=== PATIENT | male | born 1950 | race Caucasian/White ===

== ENCOUNTER 2020-01-15 16:50 | Emergency (ER) | payer MEDICARE, SELFPAY ==
[2020-01-15] VITALS (10 sets, daily range): BP systolic 126–165; BP diastolic 75–86; PULSE 55–69; RESP 14; O2SAT 95–97; BMI 38.7
[2020-01-15 18:47] LABS: Add Manual Diff / Slide Review NO; Basophils Absolute Auto 100 /uL (0-100); Basophils Percent Auto 1.1 % (0-2); Eosinophils Absolute Auto 400 /uL (0-450); Eosinophils Percent Auto 4.2 % (2-4); Hematocrit 50.2 % (41-53); Lymphocytes Absolute Auto 2600 /uL (1100-4500); Lymphocytes Percent Auto 26.9 % (25-40); Mean Corpuscular HGB Conc 33.8 % (30-36); Mean Corpuscular Hemoglobin 31.3 PG (26-34); Mean Corpuscular Volume 92.7 fL (80-100); Monocytes Absolute Auto 900 /uL (0-900); Monocytes Percent Auto 9.1 % (3-14); Neutrophils Absolute Auto 5700 /uL (1500-7000); Neutrophils Percent Auto 58.7 % (50-75); Platelet Count 204 X10^3/uL (150-400); Red Blood Cell Count 5.42 X10^6/uL (4.5-5.9); Red Cell Distribution Width 12.9 % (11.6-14.8); White Blood Cell Count 9.8 X10^3/uL (4.5-11.0)
[2020-01-15] MEDS: MORPHINE 2 MG/ML INJ IV (18:53)
[2020-01-15] MEDS: LIDOCAINE 2% (UROJET) 5 ML GEL TOP (18:54)
[2020-01-15] MEDS: SODIUM CHLORIDE 0.9% 1,000 ML 1000 ML IV (18:54)
[2020-01-15 19:03] LABS: Alanine Aminotransferase 36 IU/L (<50); Albumin 4.6 g/dL (3.5-5.0); Albumin Globulin Ratio 1.4 (1.0-2.8); Alkaline Phosphatase 84 U/L (38-126); Aspartate Aminotransferase 37 IU/L (17-59); BUN Creatinine Ratio 11.7 (6-22); Bilirubin Total 0.7 mg/dL (0.2-1.3); Blood Urea Nitrogen 14 mg/dL (9-20); Calcium 9.3 mg/dL (8.4-10.2); Carbon Dioxide 25 mmol/L (22-32); Chloride 108 mmol/L (98-107); Estimated Glomerular Filt Rate > 60.0 mL/min (>60); Globulin 3.2 g/dL (1.7-4.1); Glucose 110 mg/dL (80-110); HEMOLYSIS < 15 (0-50); Potassium 4.4 mmol/L (3.4-5.1); Sodium 139 mmol/L (137-145); Total Protein 7.8 g/dL (6.3-8.2)
--- NOTE | 2020-01-15 19:22 | DI.CT.S_ITS ---
PROCEDURE: CT ABDOMEN PELVIS W CON INDICATIONS: flank pain, hematuria, hx bladder mass TECHNIQUE: After the administration of intravenous contrast, 5 mm thick sections acquired from the diaphragm to the symphysis. 5 mm coronal and sagittal reformats were acquired. For radiation dose reduction, the following was used: automated exposure control, adjustment of mA and/or kV according to patient size. COMPARISON: None. FINDINGS: Image quality: Excellent. ABDOMEN: Lung bases: Lung bases are clear. Heart size is normal. Coronary artery calcifications are present. Hepatic steatosis. Gallbladder contains a 5 mm gallstone however otherwise unremarkable . Biliary system is non dilated. Pancreas enhances normally. Spleen is normal in size and enhancement. No adrenal nodules. Nonobstructive multiple 1 mm left renal calculi image 41/2. No hydronephrosis. Peritoneum and bowel: Bowel loops demonstrate normal wall thickness and caliber. No free fluid or air. Normal appendix. Nodes and vessels: No retroperitoneal or mesenteric adenopathy by size criteria. Aorta and inferior vena cava are normal in size. Miscellaneous: No ventral hernias. PELVIS: Bladder is decompressed and a Karimi catheter is present. Miscellaneous: No inguinal hernias or adenopathy. Bones: No vertebral body compression fracture. Spondylytic changes and facet arthropathy. IMPRESSION: Nonobstructive sub 5 mm left nephrolithiasis Incidental cholelithiasis Decompressed bladder (therefore unable to evaluate) due to a Karimi catheter. Dictated by: Charly Carmona M.D. on 01/15/2020 at 20:29 Approved by: Charly Carmona M.D. on 01/15/2020 at 20:34
[2020-01-15 19:30] LABS: Appearance Urine UA TURBID; Bilirubin Urine UA NEGATIVE (NEGATIVE); Color Urine UA RED; Glucose Urine UA TRACE g/dL (Negative); Ketones Urine UA TRACE (NEGATIVE); Leukocyte Esterase Urine UA NEGATIVE (NEGATIVE); Nitrite Urine UA POSITIVE (Negative); Occult Blood Urine UA 3+ (Negative); Protein Urine UA 3+ (Negative); Specific Gravity Urine UA 1.025 (1.000-1.035)
[2020-01-15 19:34] LABS: Bacteria Urine Many (>30); Culture Indicated Urine Specimen Cultured; RBC Urine >100/HPF (0-5/HPF); WBC Urine 0-1/HPF (0-5/HPF)
--- NOTE | 2020-01-15 19:37 | PC.NURSE ---
Patient was apprehensive about receiving a large fr. cath. He was pre medicated for pain and discomfort and then a 24 fr 3-way bansal cath was placed and bladder irrigation was started. The patient tolerated the procedure well and stated that he did not feel much discomfort.
--- NOTE | 2020-01-15 21:39 | ED_ITS ---
HPI - Male Genitourinary <JOYCELYN Almanza-BC - Last Filed: 01/15/20 22:09> General Chief complaint: Urogenital-Male Stated complaint: blood in urine x24 hours Time Seen by Provider: 01/15/20 17:54 Source: patient and family Mode of arrival: Ambulatory Limitations: no limitations History of Present Illness HPI Narrative: The patient is a 69-year-old male who presents with a chief complaint of hematuria that started yesterday. He is a nonsmoker presenting with his with history of prostate cancer. He states that he was straining to have a bowel movement and noticed blood clots coming from his penis and subsequent bloody urine. He states it stings a little bit to urinate, but nothing severe. He denies any fevers nausea vomiting or diarrhea. Denies any back or flank pain. He states that he persisted in urinating blood clots this morning so he went to an urgent care who checked his urine for infection. They stated he had no infection encouraged him to come to the emergency department. He does not have a primary care provider in the area as he recently moved from [place] with his . The patient states that he notes blood clots coming from his penis while straining to have a bowel movement. Related Data Previous Rx's Medication Instructions Recorded sulfamethoxazole-trimethoprim 1 tab PO BID #14 tab 01/15/20 [Bactrim DS] Allergies Allergy/AdvReac Type Severity Reaction Status Date / Time No Known Drug Allergies Allergy Verified 01/15/20 17:00 Review of Systems <ANGELICA AlmanzaBC - Last Filed: 01/15/20 22:09> Review of Systems Narrative: GENERAL: Denies chills, fatigue, malaise, fever, sweats. HEENT: Denies sinus pain, ear pain, sore throat, difficulty swallowing, dizziness. RESPIRATORY: Denies dyspnea, cough, wheezing, hemoptysis, sputum. CARDIOVASCULAR: Denies chest pain, palpitations, orthopnea, edema, GASTROINTESTINAL: Denies nausea, vomiting, abdominal pain, diarrhea, constipation, melena. : See HPI MUSCULOSKELETAL: denies weakness, joint pain, or bony pain SKIN: Denies rash, skin lesions, or other NEUROLOGIC: Denies weakness, headache, numbness, change in speech, confusion, seizures, incoordination. PSYCHIATRIC: No concerning psychosocial issues. 12 point review of systems is negative except for those stated above Patient History <GUERO Almanza - Last Filed: 01/15/20 22:09> Medical History (Updated 01/15/20 @ 21:52 by GUERO Almanza) Constipation (Acute) Prostate cancer (Acute) Social History Smoking Status: Never smoker Smoking Status: Never smoker alcohol intake frequency: 0-2 drinks per day Substance Use Type: does not use Exam <GUERO Almanza - Last Filed: 01/15/20 22:09> Narrative Exam Narrative: GENERAL: This is a well-nourished, well-developed patient, nervous itch. HEAD: Atraumatic. Normocephalic. No temporal or scalp tenderness. EYES: Pupils equal round and reactive. Extraocular motions intact. No scleral icterus. No injection or drainage. ENT: Nose without bleeding, purulent drainage or septal hematoma. Wearing mask Airway patent. NECK: Trachea midline. No JVD or lymphadenopathy. Supple, nontender, no meningeal signs. CARDIOVASCULAR: Regular rate and rhythm use. RESPIRATORY: Clear to auscultation. Breath sounds equal bilaterally. No wheezes, rales, or rhonchi. No cough. No increased respiratory effort. No accessory muscle GASTROINTESTINAL: Abdomen soft, non-tender, nondistended. No hepato- splenomegaly, or palpable masses. No guarding. Karimi catheter in place draining bloody urine. EXTREMITIES: No clubbing, cyanosis, or edema. No joint tenderness, effusion, or edema noted. BACK: Nontender without deformity or crepitance. No flank tenderness. NEURO: AOx3. SKIN: No rash or erythema. Initial Vital Signs Initial Vital Signs: Vital Signs Pulse Rate 69 01/15/20 17:02 Respiratory Rate 14 01/15/20 17:02 Blood Pressure 165/77 H 01/15/20 17:02 Pulse Oximetry 95 01/15/20 17:02 <Adria Oviedo DO - Last Filed: 01/16/20 03:39> Initial Vital Signs Initial Vital Signs: Vital Signs Pulse Rate 69 01/15/20 17:02 Respiratory Rate 14 01/15/20 17:02 Blood Pressure 165/77 H 01/15/20 17:02 Pulse Oximetry 95 01/15/20 17:02 Scores <ANGELICA AlmanzaBC - Last Filed: 01/15/20 22:09> GCS Servando coma scale eye opening: Spontaneous [place] coma scale verbal response: Orientated Servando coma scale motor response: Obey commands Servando coma scale total score: 15 Course <GUERO Almanza - Last Filed: 01/15/20 22:09> Orders Ordered: ED Orders 01/15/20 18:40 Complete Blood Count AUTO DIFF Stat Comprehensive Metabolic Panel Stat Urinalysis and Microscopic Stat Urine Culture Stat 01/15/20 19:22 CT abdomen pelvis w con Stat Discontinued Medications Sodium Chloride (Normal Saline 0.9%) 1,000 mls @ 1,000 mls/hr IV BOLUS ONE Stop: 01/15/20 19:37 Last Infusion: 01/15/20 20:43 Dose: 0 mls/hr Documented by: Admin: 01/15/20 18:54 Dose: 1,000 mls/hr Documented by: RIRI Lidocaine HCl (Urojet) 5 ml TOP NOW ONE Stop: 01/15/20 18:39 Last Admin: 01/15/20 18:54 Dose: 5 ml Documented by: RIRI Morphine Sulfate (Morphine) 2 mg IV NOW ONE Stop: 01/15/20 18:39 Last Admin: 01/15/20 18:53 Dose: 2 mg Documented by: RIRI Trimethoprim/Sulfamethoxazole (Bactrim Ds) 1 tab PO NOW ONE Stop: 01/15/20 21:23 Last Admin: 01/15/20 22:14 Dose: 1 tab Documented by: EDA Vital Signs Vital signs: Vital Signs - 8 hr 01/15/20 20:00 01/15/20 20:05 01/15/20 20:30 Pulse Rate 64 65 59 L Blood Pressure 135/86 126/76 Pulse Oximetry 97 96 95 01/15/20 21:00 01/15/20 21:30 01/15/20 22:00 Pulse Rate 60 56 L 59 L Blood Pressure 132/75 140/78 135/84 Pulse Oximetry 95 95 96 01/15/20 22:30 Pulse Rate 55 L Blood Pressure 142/78 H Pulse Oximetry 95 <Adria Oviedo DO - Last Filed: 01/16/20 03:39> Orders Ordered: ED Orders 01/15/20 18:40 Complete Blood Count AUTO DIFF Stat Comprehensive Metabolic Panel Stat Urinalysis and Microscopic Stat Urine Culture Stat 01/15/20 19:22 CT abdomen pelvis w con Stat Discontinued Medications Sodium Chloride (Normal Saline 0.9%) 1,000 mls @ 1,000 mls/hr IV BOLUS ONE Stop: 01/15/20 19:37 Last Infusion: 01/15/20 20:43 Dose: 0 mls/hr Documented by: Admin: 01/15/20 18:54 Dose: 1,000 mls/hr Documented by: RIRI Lidocaine HCl (Urojet) 5 ml TOP NOW ONE Stop: 01/15/20 18:39 Last Admin: 01/15/20 18:54 Dose: 5 ml Documented by: RIRI Morphine Sulfate (Morphine) 2 mg IV NOW ONE Stop: 01/15/20 18:39 Last Admin: 01/15/20 18:53 Dose: 2 mg Documented by: RIRI Trimethoprim/Sulfamethoxazole (Bactrim Ds) 1 tab PO NOW ONE Stop: 01/15/20 21:23 Last Admin: 01/15/20 22:14 Dose: 1 tab Documented by: EDA Vital Signs Vital signs: Vital Signs - 8 hr 01/15/20 20:00 01/15/20 20:05 01/15/20 20:30 Pulse Rate 64 65 59 L Blood Pressure 135/86 126/76 Pulse Oximetry 97 96 95 01/15/20 21:00 01/15/20 21:30 01/15/20 22:00 Pulse Rate 60 56 L 59 L Blood Pressure 132/75 140/78 135/84 Pulse Oximetry 95 95 96 01/15/20 22:30 Pulse Rate 55 L Blood Pressure 142/78 H Pulse Oximetry 95 MDM - Male Genitourinary <JOYCELYN Almanza- - Last Filed: 01/15/20 22:09> Lab Data Attestation: I reviewed the patient's lab results. Result diagrams: 01/15/20 18:40 01/15/20 18:40 Labs: Lab Results 01/15/20 01/15/20 01/15/20 Range/Units 18:40 18:40 18:40 WBC 9.8 (4.5-11.0) X10^3/uL RBC 5.42 (4.5-5.9) X10^6/uL Hgb 17.0 (13.5-17.5) g/dL Hct 50.2 (41-53) % MCV 92.7 (80-100) fL MCH 31.3 (26-34) PG MCHC 33.8 (30-36) % RDW 12.9 (11.6-14.8) % Plt Count 204 (150-400) X10^3/uL Neut % (Auto) 58.7 (50-75) % Lymph % (Auto) 26.9 (25-40) % [place] % (Auto) 9.1 (3-14) % Eos % (Auto) 4.2 H (2-4) % Baso % (Auto) 1.1 (0-2) % Neut # (Auto) 5700 (3508-2815) /uL Lymph # (Auto) 2600 (5719-8482) /uL [place] # (Auto) 900 (0-900) /uL Eos # (Auto) 400 (0-450) /uL Baso # (Auto) 100 (0-100) /uL Sodium 139 (137-145) mmol/L Potassium 4.4 (3.4-5.1) mmol/L Chloride 108 H (98-107) mmol/L Carbon Dioxide 25 (22-32) mmol/L BUN 14 (9-20) mg/dL Creatinine 1.20 (0.66-1.25) mg/dL Estimated GFR > 60.0 (>60) mL/min BUN/Creatinine Ratio 11.7 (6-22) Glucose 110 (80-110) mg/dL Calcium 9.3 (8.4-10.2) mg/dL Total Bilirubin 0.7 (0.2-1.3) mg/dL AST 37 (17-59) IU/L ALT 36 (<50) IU/L Alkaline Phosphatase 84 (38-126) U/L Total Protein 7.8 (6.3-8.2) g/dL Albumin 4.6 (3.5-5.0) g/dL Globulin 3.2 (1.7-4.1) g/dL Albumin/Globulin Ratio 1.4 (1.0-2.8) Urine Color Red Urine Appearance Turbid Urine pH 5.0 (4.5-8.0) Ur Specific [place] 1.025 (1.000-1.035) Urine Protein 3+ H (Negative) Urine Glucose (UA) Trace H (Negative) g/dL Urine Ketones Trace H (NEGATIVE) Urine Occult Blood 3+ H (Negative) Urine Nitrate Positive (Negative) Urine Bilirubin Negative (NEGATIVE) Urine Urobilinogen 1.0 (0.2) E.U./dL Ur Leukocyte Esterase Negative (NEGATIVE) Urine RBC >100/hpf H (0-5/HPF) Urine WBC 0-1/hpf (0-5/HPF) Urine Bacteria Many (>30) H (None) Ur Culture Indicated? Specimen cultured Imaging Data CT scan - abdomen/pelvis: Radiologist's Impression: [address] [place] [id number] Scan Report Signed Patient: Davey Mast VMR#: [id number] : 3Acct:[id number] Age/Sex: 69 / MDate of Service: 01/15/20 Loc: ED Accession Number: [id number] Procedure: CT abdomen pelvis w con Ordering Provider: Shelley Manrique [facility]- PROCEDURE: CT ABDOMEN PELVIS W CON INDICATIONS: flank pain, hematuria, hx bladder mass TECHNIQUE: After the administration of intravenous contrast, 5 mm thick sections acquired from the diaphragm to the symphysis. 5 mm coronal and sagittal reformats were acquired. For radiation dose reduction, the following was used: automated exposure control, adjustment of mA and/or kV according to patient size. COMPARISON: None. FINDINGS: Image quality: Excellent. ABDOMEN: Lung bases: Lung bases are clear. Heart size is normal. Coronary artery calcifications are present. Hepatic steatosis. Gallbladder contains a 5 mm gallstone however otherwise unremarkable . Biliary system is non dilated. Pancreas enhances normally. Spleen is normal in size and enhancement. No adrenal nodules. Nonobstructive multiple 1 mm left renal calculi image 41/2. No hydronephrosis. Peritoneum and bowel: Bowel loops demonstrate normal wall thickness and ca liber. No free fluid or air. Normal appendix. Nodes and vessels: No retroperitoneal or mesenteric adenopathy by size criteria. Aorta and inferior vena cava are normal in size. Miscellaneous: No ventral hernias. PELVIS: Bladder is decompressed and a Karimi catheter is present. Miscellaneous: No inguinal hernias or adenopathy. Bones: No vertebral body compression fracture. Spondylytic changes and facet arthropathy. IMPRESSION: Nonobstructive sub 5 mm left nephrolithiasis Incidental cholelithiasis Decompressed bladder (therefore unable to evaluate) due to a Karimi catheter. Dictated by: Charly Carmona M.D. on 01/15/2020 at 20:29 Approved by: Charly Carmona M.D. on 01/15/2020 at 20:34 [facility] Narrative Medical decision making narrative: The patient is a 69-year-old male presents with a chief complaint of gross hematuria for the past 2 days. His lab work is grossly within normal limits, is not anemic, has normal renal function. He does have history of kidney stones,, but CT abdomen pelvis does not show any ureteral stones at this point. He does have a nonobstructive 1 mm renal calculi. However his urine is concerning for infection with bacteria, blood, and nitr ites. Patient placed on Bactrim. He has no signs of systemic infection, no leukocytosis, no fever. I did discuss at length the importance of follow-up with primary care provider and gave him contact information [facility] health human resources safety manager. Also given contact information for urology as I believe he would benefit from a cystoscopy pending antibiotic treatment and further evaluation. The patient is comfortable using a Karimi catheter home as he is use from before. Received teaching and leg bag again by nursing. Urine culture is pending. Discussed at length coming back to ER for acute concerns such as Karimi catheter not working, inability keep down fluids, severe flank dano n etcetera. Patient have no questions or concerns upon discharge and state understanding of return precautions as well as follow-up care. <Adria Oviedo, DO - Last Filed: 01/16/20 03:39> Lab Data Labs: Lab Results 01/15/20 01/15/20 01/15/20 Range/Units 18:40 18:40 18:40 WBC 9.8 (4.5-11.0) X10^3/uL RBC 5.42 (4.5-5.9) X10^6/uL Hgb 17.0 (13.5-17.5) g/dL Hct 50.2 (41-53) % MCV 92.7 (80-100) fL MCH 31.3 (26-34) PG MCHC 33.8 (30-36) % RDW 12.9 (11.6-14.8) % Plt Count 204 (150-400) X10^3/uL Neut % (Auto) 58.7 (50-75) % Lymph % (Auto) 26.9 (25-40) % [place] % (Auto) 9.1 (3-14) % Eos % (Auto) 4.2 H (2-4) % Baso % (Auto) 1.1 (0-2) % Neut # (Auto) 5700 (4849-2759) /uL Lymph # (Auto) 2600 (0102-2878) /uL [place] # (Auto) 900 (0-900) /uL Eos # (Auto) 400 (0-450) /uL Baso # (Auto) 100 (0-100) /uL Sodium 139 (137-145) mmol/L Potassium 4.4 (3.4-5.1) mmol/L Chloride 108 H (98-107) mmol/L Carbon Dioxide 25 (22-32) mmol/L BUN 14 (9-20) mg/dL Creatinine 1.20 (0.66-1.25) mg/dL Estimated GFR > 60.0 (>60) mL/min BUN/Creatinine Ratio 11.7 (6-22) Glucose 110 (80-110) mg/dL Calcium 9.3 (8.4-10.2) mg/dL Total Bilirubin 0.7 (0.2-1.3) mg/dL AST 37 (17-59) IU/L ALT 36 (<50) IU/L Alkaline Phosphatase 84 (38-126) U/L Total Protein 7.8 (6.3-8.2) g/dL Albumin 4.6 (3.5-5.0) g/dL Globulin 3.2 (1.7-4.1) g/dL Albumin/Globulin Ratio 1.4 (1.0-2.8) Urine Color Red Urine Appearance Turbid Urine pH 5.0 (4.5-8.0) Ur Specific [place] 1.025 (1.000-1.035) Urine Protein 3+ H (Negative) Urine Glucose (UA) Trace H (Negative) g/dL Urine Ketones Trace H (NEGATIVE) Urine Occult Blood 3+ H (Negative) Urine Nitrate Positive (Negative) Urine Bilirubin Negative (NEGATIVE) Urine Urobilinogen 1.0 (0.2) E.U./dL Ur Leukocyte Esterase Negative (NEGATIVE) Urine RBC >100/hpf H (0-5/HPF) Urine WBC 0-1/hpf (0-5/HPF) Urine Bacteria Many (>30) H (None) Ur Culture Indicated? Specimen cultured Discharge Plan Departure Patient Disposition: Home Clinical Impression: Calculus, renal Urinary tract infection Qualifiers: Urinary tract infection type: site unspecified Hematuria presence: with hematuria Qualified Code(s): N39.0 - Urinary tract infection, site not specified Hematuria Qualifiers: Hematuria type: gross Qualified Code(s): R31.0 - Gross hematuria Discharge Date/Time: 01/15/20 23:09 Instructions: How to Care for Your Karimi Catheter -- Male, DI for Urinary Tract Infection (UTI), DI for Hematuria Activity Restrictions/Additional Instructions: Thank you for trusting us with your care today As discussed, you have signs of infection in your urine. I have placed you on an antibiotic. Please take this with probiotic or yogurt. I sent this prescription to [facility]. We have placed a Karimi catheter to help urine drain as well as flushed your bladder. As discussed, please follow-up with urology. I have given you contact [facility] Please give his office a call to get in for follow-up. In the meantime I have given you could instructions regarding taking care of a Karimi catheter. Please be sure to keep it clean. Please come back to the emergency department for any acute concerns such as high fevers, severe flank pain that could indicate a kidney infection. I have also given you contact information to the [facility] human resources safety manager, who can help you identify new primary care provider in the area. Prescriptions: New sulfamethoxazole-trimethoprim [Bactrim DS] 800-160 mg tablet 1 tab PO BID Qty: 14 RF: 0 Referrals: [facility] [Outside] Kristin Vidal MD [Physician] - <Adria Oviedo DO - Last Filed: 01/16/20 03:39> [facility] Rosalindature Attestation: I was immediately available in the department for consultation. This documentation has been reviewed and I agree with assessment and plan. Supervised by Adria Oviedo DO
[2020-01-15] MEDS: TRIMETH/SULFA 160/800 (DS) TABLET 1 TAB PO (22:14)
== END 2020-01-15 23:09 | disposition home or self-care (01) ==
PROVIDERS: Emergency Provider Nurse Practitioner Family
DX: N39.0 Urinary tract infection, site not specified (principal); R31.0 Gross hematuria; N40.0 Benign prostatic hyperplasia without lower urinary tract symptoms
CPT/HCPCS: 36415; 51701; 51798; 74177; 80053; 81001; 85025; 87086; 96361; 96374; 99284; 99285; J2270

== ENCOUNTER → 2020-03-01 09:11 | Outpatient (CLI) | payer MEDICARE, SELFPAY ==
[2020-03-01 10:50] LABS: Add Manual Diff / Slide Review NO; Basophils Absolute Auto 100 /uL (0-100); Basophils Percent Auto 1.4 % (0-2); Eosinophils Absolute Auto 700 /uL (0-450); Eosinophils Percent Auto 8.5 % (2-4); Hematocrit 50.6 % (41-53); Hemoglobin 16.9 g/dL (13.5-17.5); Lymphocytes Absolute Auto 1900 /uL (1100-4500); Lymphocytes Percent Auto 24.4 % (25-40); Mean Corpuscular HGB Conc 33.5 % (30-36); Mean Corpuscular Hemoglobin 30.9 PG (26-34); Mean Corpuscular Volume 92.5 fL (80-100); Monocytes Absolute Auto 800 /uL (0-900); Monocytes Percent Auto 9.7 % (3-14); Neutrophils Absolute Auto 4500 /uL (1500-7000); Platelet Count 210 X10^3/uL (150-400); Red Blood Cell Count 5.47 X10^6/uL (4.5-5.9)
[2020-03-01 10:54] LABS: Hemoglobin A1C% w Est Avg Glu 7.3 % (4.0-6.0)
[2020-03-01 11:19] LABS: BUN Creatinine Ratio 14.7 (6-22); Blood Urea Nitrogen 17 mg/dL (9-20); Calcium 9.1 mg/dL (8.4-10.2); Carbon Dioxide 28 mmol/L (22-32); Chloride 105 mmol/L (98-107); Estimated Glomerular Filt Rate > 60.0 mL/min (>60); Glucose 148 mg/dL (80-110); HEMOLYSIS < 15 (0-50); Potassium 4.6 mmol/L (3.4-5.1); Sodium 138 mmol/L (137-145)
[2020-03-01 11:30] LABS: Alanine Aminotransferase 44 IU/L (<50); Albumin 4.2 g/dL (3.5-5.0); Albumin Globulin Ratio 1.6 (1.0-2.8); Alkaline Phosphatase 80 U/L (38-126); Aspartate Aminotransferase 37 IU/L (17-59); BUN Creatinine Ratio 15.5 (6-22); Bilirubin Total 0.6 mg/dL (0.2-1.3); Blood Urea Nitrogen 18 mg/dL (9-20); Calcium 9.2 mg/dL (8.4-10.2); Carbon Dioxide 27 mmol/L (22-32); Chloride 105 mmol/L (98-107); Cholesterol 178 mg/dL (140-199); Estimated Glomerular Filt Rate > 60.0 mL/min (>60); Globulin 2.6 g/dL (1.7-4.1); Glucose 145 mg/dL (80-110); HDL Cholesterol 43 mg/dL (40-60); HEMOLYSIS < 15 (0-50); LDL Cholesterol Calculated 90 mg/dL (<100); Potassium 4.8 mmol/L (3.4-5.1); Sodium 139 mmol/L (137-145); Total Protein 6.8 g/dL (6.3-8.2); Triglycerides 226 mg/dL (35-150)
[2020-03-01 11:45] LABS: TSH w/ Reflex to FT4 1.47 uIU/mL (0.47-4.68)
== END ==
PROVIDERS: PCP Family Medicine; Referring Provider Specialist; Visit Provider Specialist
DX: N28.9 Disorder of kidney and ureter, unspecified (principal); E11.9 Type 2 diabetes mellitus without complications; E78.00 Pure hypercholesterolemia, unspecified; I10 Essential (primary) hypertension; N20.0 Calculus of kidney
CPT/HCPCS: 36415; 80048; 80053; 80061; 83036; 84443; 85025

== ENCOUNTER 2020-03-04 07:33 | Emergency (ER) | payer MEDICARE, SELFPAY ==
[2020-03-04 07:44] VITALS: BP 172/80; PULSE 59; RESP 18; TEMP 36.6; O2SAT 98; BMI 37.9
--- NOTE | 2020-03-04 07:49 | ED_ITS ---
HPI - Abdominal Pain General Chief Complaint: Abdominal Pain Stated Complaint: ABDOMINAL PAIN Time Seen by Provider: 03/04/20 07:37 Source: patient Mode of arrival: Ambulatory Limitations: no limitations History of Present Illness HPI narrative: Patient is 69 male with diabetes and prostate cancer presenting today with left flank pain. He it is currently being followed by Urology for hematuria. He actually has a CT with contrast scheduled today at 1:00 p.m. however he started having sharp sudden stabbing left flank pain radiating to his groin. Last month he was found to have measuring 5 mm in the left kidney. He says this feels like previous kidney stones he has had. He has had nausea no vomiting. He has been up since 4:00 a.m. walking trying to get comfortable. MD complaint: abdominal pain and flank pain Quality: stabbing and sharp Migration to: no migration Relieving factors: nothing Exacerbating factors: nothing Related Data Home Medications Medication Instructions Recorded Confirmed aspirin 81 mg tablet,delayed 81 mg PO DAILY 02/04/20 02/16/20 release bupropion HCl 300 mg 24 hr tablet, 300 mg PO QAM 02/04/20 02/16/20 extended release insulin aspart U-100 100 unit/mL 15 unit SUBCUT TID 02/04/20 02/16/20 subcutaneous solution insulin glargine 100 unit/mL 50 unit SUBCUT QPM 02/04/20 02/16/20 subcutaneous cartridge losartan 50 mg tablet 50 mg PO DAILY 02/04/20 02/16/20 simvastatin 20 mg tablet 20 mg PO DAILY 02/04/20 02/16/20 Previous Rx's Medication Instructions Recorded hydrocodone-acetaminophen 1 tab PO Q6H PRN #10 tab 03/04/20 ketorolac 10 mg PO TID PRN #10 tab 03/04/20 ondansetron 4 mg PO Q8H PRN #10 tab 03/04/20 Allergies Allergy/AdvReac Type Severity Reaction Status Date / Time No Known Drug Allergies Allergy Verified 03/04/20 07:52 Review of Systems Review of Systems Narrative: GENERAL: Denies chills, fatigue, malaise, fever, sweats, travel HEENT: Denies sinus pain, ear pain, sore throat, difficulty swallowing, neck pain RESPIRATORY: Denies dyspnea, cough, wheezing, hemoptysis, sputum. CARDIOVASCULAR: Denies chest pain, palpitations, orthopnea, edema GASTROINTESTINAL: Denies nausea, vomiting, abdominal pain, diarrhea, constipation, melena. : See HPI MUSCULOSKELETAL: Denies weakness, joint pain, or bony pain SKIN: No rash, no erythema, no pruritus NEUROLOGIC: Denies weakness, dizziness, headache, numbness, change in speech, confusion PSYCHIATRIC: No concerning psychosocial issues. 12 point review of systems is negative except for those stated above and HPI Patient History Medical History Constipation Depression Diabetes Diverticular disease Erectile dysfunction Gross hematuria History of nephrolithiasis HTN (hypertension) Hypercholesterolemia Nephrolithiasis Prostate cancer Prostate cancer Type 2 diabetes mellitus with peripheral neuropathy Surgical History H/O cystoscopy H/O prostate biopsy H/O prostatectomy H/O transurethral resection of prostate H/O vasectomy Social History Smoking Status: Never smoker Smoking Status: Never smoker alcohol intake frequency: 0-2 drinks per day Substance Use Type: does not use Exam Initial Vital Signs Initial Vital Signs: Vital Signs Temperature 97.8 F 03/04/20 07:44 Pulse Rate 59 L 03/04/20 07:44 Respiratory Rate 18 03/04/20 07:44 Blood Pressure 172/80 H 03/04/20 07:44 Pulse Oximetry 98 03/04/20 07:44 GENERAL: Alert male slightly diaphoretic appears in severe pain HEENT: Head atraumatic,EOMI, pupils reactive, face symmetric, moist mucous membranes CARDIOVASCULAR: Regular rate and rhythm without murmurs, rubs or gallops. RESPIRATORY: Breath sounds equal bilaterally, no wheezes rales or rhonchi. ABDOMEN: Soft, left lower quadrant pain no guarding or rebound : Left CVA tenderness EXTREMITIES: Normal range of motion, no clubbing or edema. Neurovascularly intact NEUROLOGICAL: Alert and oriented x4.Normal gait and speech. SKIN: Warm, dry, no laceration, no petechiae, no rashes or lesions. Course Orders Ordered: ED Orders 03/04/20 07:44 EKG-12 Lead Stat 03/04/20 07:50 Complete Blood Count AUTO DIFF Stat Comprehensive Metabolic Panel Stat Lipase Stat Partial Thromboplastin Time Stat Prothrombin Time INR Stat 03/04/20 08:06 CT abdomen pelvis wo/w con Stat Discontinued Medications Sodium Chloride (Normal Saline 0.9%) 1,000 mls @ 150 mls/hr IV CONT FALGUNI Last Admin: 03/04/20 08:02 Dose: 150 mls/hr Documented by: LAVERNE Ketorolac Tromethamine (Ketorolac 60 Mg/2 Ml Vial) 30 mg IV NOW ONE Stop: 03/04/20 07:48 Last Admin: 03/04/20 08:01 Dose: 30 mg Documented by: LAVERNE Ondansetron HCl (Ondansetron 4 Mg/2 Ml Inj) 4 mg IV NOW ONE Stop: 03/04/20 07:48 Last Admin: 03/04/20 08:01 Dose: 4 mg Documented by: LAVERNE Vital Signs Vital signs: Vital Signs - 8 hr 03/04/20 07:44 03/04/20 09:48 03/04/20 09:55 Temperature 97.8 F Pulse Rate 59 L 60 60 Respiratory Rate 18 Blood Pressure 172/80 H 144/71 H Pulse Oximetry 98 98 97 03/04/20 10:00 Temperature Pulse Rate 59 L Respiratory Rate Blood Pressure 152/75 H Pulse Oximetry 99 MDM - Abdominal Pain Lab Data Attestation: I reviewed the patient's lab results. Result diagrams: 03/04/20 07:50 03/04/20 07:50 Labs: Lab Results 03/04/20 03/04/20 03/04/20 Range/Units 07:50 07:50 07:50 WBC 11.9 H (4.5-11.0) X10^3/uL RBC 5.37 (4.5-5.9) X10^6/uL Hgb 16.5 (13.5-17.5) g/dL Hct 50.0 (41-53) % MCV 93.1 (80-100) fL MCH 30.7 (26-34) PG MCHC 33.0 (30-36) % RDW 13.2 (11.6-14.8) % Plt Count 223 (150-400) X10^3/uL Neut % (Auto) 74.0 (50-75) % Lymph % (Auto) 14.0 L (25-40) % [place] % (Auto) 6.4 (3-14) % Eos % (Auto) 4.5 H (2-4) % Baso % (Auto) 1.1 (0-2) % Neut # (Auto) 8800 H (7048-8873) /uL Lymph # (Auto) 1700 (5101-0095) /uL [place] # (Auto) 800 (0-900) /uL Eos # (Auto) 500 H (0-450) /uL Baso # (Auto) 100 (0-100) /uL PT 11.4 (10.1-12.7) SECONDS INR 1.0 (0.9-1.3) APTT 32 (26.4-36.2) SECONDS Sodium 136 L (137-145) mmol/L Potassium 4.4 (3.4-5.1) mmol/L Chloride 105 (98-107) mmol/L Carbon Dioxide 27 (22-32) mmol/L BUN 22 H (9-20) mg/dL Creatinine 1.30 H (0.66-1.25) mg/dL Estimated GFR 55.1 L (>60) mL/min BUN/Creatinine Ratio 16.9 (6-22) Glucose 208 H (80-110) mg/dL Calcium 9.5 (8.4-10.2) mg/dL Total Bilirubin 0.6 (0.2-1.3) mg/dL AST 37 (17-59) IU/L ALT 43 (<50) IU/L Alkaline Phosphatase 86 (38-126) U/L Total Protein 7.4 (6.3-8.2) g/dL Albumin 4.4 (3.5-5.0) g/dL Globulin 3.0 (1.7-4.1) g/dL Albumin/Globulin Ratio 1.5 (1.0-2.8) Lipase 92 (23-300) U/L Point of care testing: Urine Dip Bedside Urine Glucose Negative Bedside Urine Bilirubin - Negative Bedside Urine Ketone +/- 5 Urine Specific [place] 1.010 Bedside Urine Occult Blood ++ Bedside Urine pH 5.5 Bedside Urine Protein - Negative Bedside Urine Urobilinogen - Negative Bedside Urine Nitrite - Negative Bedside Urine Leukocytes - Negative Esterase Imaging Data CT scan - abdomen/pelvis: Radiologist's Impression: PROCEDURE: CT ABDOMEN PELVIS WO/W CON COMPARISON: [facility], CT, CT ABDOMEN PELVIS W CON, 01/15/2020, 19:30. INDICATIONS: left flank pain, hx prostate ca FINDINGS: Image quality: Excellent. Lung bases: Lung bases are clear. Heart size is normal. Solid organs: Liver: The liver has no mass or intrahepatic biliary ductal dilatation. The portal vein and hepatic veins are patent. Biliary: There is a subtle hyperdensity in the gallbladder consistent with a stone. No wall thickening or pericholecystic fluid. Pancreas: The pancreas has no mass or ductal dilatation. There is no surrounding inflammation. Spleen: Normal size. There are no masses. Adrenals: No hypertrophy or nodules. Kidneys: There is a 4 millimeter stone in the distal left ureter with mild left hydronephrosis. No solid or cystic masses. Peritoneum and bowel: The distal esophagus and stomach are normal. The small bowel has a normal caliber and appearance. The terminal ileum is normal. The large bowel has a normal caliber and appearance. The appendix is normal. No free fluid or air. Nodes and vessels: No retroperitoneal or mesenteric adenopathy by size criteria. Aorta and inferior vena cava are normal in size. Miscellaneous: No abdominal wall mass or hernia. PELVIS: Genitourinary: The bladder has no wall thickening or mass. No bladder calcifications. Status post prostatectomy. Miscellaneous: No inguinal hernias or adenopathy. Bones: No suspicious bony lesions. No vertebral body compression fractures. IMPRESSION: 1. 4 millimeter left ureteral calculus causing mild left hydronephrosis. 2. Cholelithiasis without evidence of cholecystitis. Dictated by: Donald Ritchie M.D. on 03/04/2020 at 8:33 MDM Narrative Medical decision making narrative: Patient's pain is significantly better after Toradol. No sign of infection, at this time conservative management with pain control follow-up with Urology. Discharge Plan Departure Patient Disposition: Home Clinical Impression: Kidney stone on left side Instructions: DI for Kidney Stones Activity Restrictions/Additional Instructions: * You've been diagnosed with kidney stone * What to do: Increase fluid intake, Strain urine, try to catch stone * Please follow-up with your primary care provider in the next 2-3 days, you may require urology consultation please discuss this with -If you should have fever, or pain is uncontrolled with medication at home or any other concerning symptoms return to ER for further evaluation MEDICATIONS Take KETOROLAC 10 MG every 8 hours as needed for pain Take [place] every 6 hours if needed for severe pain Take Zofran every 4-6 hours if needed for nausea CONTROLLED SUBSTANCE DISCHARGE (Narcotoic/benzodiazepine) 1. You have been prescribed narcotic medications, it does have acetam inophen/Tylenol/paracetamol in it so do not take extra Tylenol or Tylenol containing products 2. Please understand that we cannot provide further refills of narcotics, benzodiazepines or controlled substances through the ED and her pain management will need to be through your provider. 3. While on these medications you cannot drive or operate heavy machinery. 4. You cannot sign legal documents or perform any duties such as this. 5. As long as you're taking opiate pain medications he should also be taking a stool softener such as Colace, Dulcolax, MiraLAX or prune juice, to help avoid constipation. Prescriptions: New ketorolac 10 mg tablet 10 mg PO TID PRN (Reason: pain) Qty: 10 RF: 0 ondansetron 4 mg tablet,disintegrating 4 mg PO Q8H PRN (Reason: nausea and vomiting) Qty: 10 RF: 0 hydrocodone-acetaminophen 5-325 mg tablet 1 tab PO Q6H PRN (Reason: pain) Qty: 10 RF: 0 No Action bupropion HCl 300 mg tablet extended release 24 hr 300 mg PO QAM RF: 0 simvastatin 20 mg tablet 20 mg PO DAILY RF: 0 losartan 50 mg tablet 50 mg PO DAILY RF: 0 aspirin 81 mg tablet,delayed release (DR/EC) 81 mg PO DAILY RF: 0 insulin glargine 100 unit/mL cartridge 50 unit SUBCUT QPM RF: 0 insulin aspart U-100 [Novolog U-100 Insulin aspart] 100 unit/mL solution 15 unit SUBCUT TID RF: 0 Referrals: Diego Rivera DO [Primary Care Provider] -
[2020-03-04 07:56] LABS: Add Manual Diff / Slide Review NO; Basophils Absolute Auto 100 /uL (0-100); Basophils Percent Auto 1.1 % (0-2); Eosinophils Absolute Auto 500 /uL (0-450); Eosinophils Percent Auto 4.5 % (2-4); Hemoglobin 16.5 g/dL (13.5-17.5); Lymphocytes Absolute Auto 1700 /uL (1100-4500); Mean Corpuscular Hemoglobin 30.7 PG (26-34); Mean Corpuscular Volume 93.1 fL (80-100); Monocytes Absolute Auto 800 /uL (0-900); Monocytes Percent Auto 6.4 % (3-14); Neutrophils Absolute Auto 8800 /uL (1500-7000); Platelet Count 223 X10^3/uL (150-400); Red Blood Cell Count 5.37 X10^6/uL (4.5-5.9); Red Cell Distribution Width 13.2 % (11.6-14.8); White Blood Cell Count 11.9 X10^3/uL (4.5-11.0)
[2020-03-04] MEDS: KETOROLAC 60 MG/2 ML VIAL 30 MG IV (08:01)
[2020-03-04] MEDS: ONDANSETRON 4 MG/2 ML INJ IV (08:01)
[2020-03-04] MEDS: SODIUM CHLORIDE 0.9% 1,000 ML 150 ML IV (08:02)
--- NOTE | 2020-03-04 08:06 | DI.CT.S_ITS ---
PROCEDURE: CT ABDOMEN PELVIS WO/W CON COMPARISON: [facility], CT, CT ABDOMEN PELVIS W CON, 01/15/2020, 19:30. INDICATIONS: left flank pain, hx prostate ca FINDINGS: Image quality: Excellent. Lung bases: Lung bases are clear. Heart size is normal. Solid organs: Liver: The liver has no mass or intrahepatic biliary ductal dilatation. The portal vein and hepatic veins are patent. Biliary: There is a subtle hyperdensity in the gallbladder consistent with a stone. No wall thickening or pericholecystic fluid. Pancreas: The pancreas has no mass or ductal dilatation. There is no surrounding inflammation. Spleen: Normal size. There are no masses. Adrenals: No hypertrophy or nodules. Kidneys: There is a 4 millimeter stone in the distal left ureter with mild left hydronephrosis. No solid or cystic masses. Peritoneum and bowel: The distal esophagus and stomach are normal. The small bowel has a normal caliber and appearance. The terminal ileum is normal. The large bowel has a normal caliber and appearance. The appendix is normal. No free fluid or air. Nodes and vessels: No retroperitoneal or mesenteric adenopathy by size criteria. Aorta and inferior vena cava are normal in size. Miscellaneous: No abdominal wall mass or hernia. PELVIS: Genitourinary: The bladder has no wall thickening or mass. No bladder calcifications. Status post prostatectomy. Miscellaneous: No inguinal hernias or adenopathy. Bones: No suspicious bony lesions. No vertebral body compression fractures. IMPRESSION: 1. 4 millimeter left ureteral calculus causing mild left hydronephrosis. 2. Cholelithiasis without evidence of cholecystitis. Dictated by: Donald Ritchie M.D. on 03/04/2020 at 8:33 Approved by: Donald Ritchie M.D. on 03/04/2020 at 8:39
[2020-03-04 08:10] LABS: Prothrombin Time 11.4 SECONDS (10.1-12.7)
[2020-03-04 08:13] LABS: PTT Partial Thromboplastin Tim 32 SECONDS (26.4-36.2)
[2020-03-04 08:15] LABS: Alanine Aminotransferase 43 IU/L (<50); Albumin 4.4 g/dL (3.5-5.0); Albumin Globulin Ratio 1.5 (1.0-2.8); Alkaline Phosphatase 86 U/L (38-126); Aspartate Aminotransferase 37 IU/L (17-59); BUN Creatinine Ratio 16.9 (6-22); Bilirubin Total 0.6 mg/dL (0.2-1.3); Blood Urea Nitrogen 22 mg/dL (9-20); Calcium 9.5 mg/dL (8.4-10.2); Carbon Dioxide 27 mmol/L (22-32); Chloride 105 mmol/L (98-107); Estimated Glomerular Filt Rate 55.1 mL/min (>60); Glucose 208 mg/dL (80-110); HEMOLYSIS 21 (0-50); Lipase 92 U/L (23-300); Potassium 4.4 mmol/L (3.4-5.1); Sodium 136 mmol/L (137-145); Total Protein 7.4 g/dL (6.3-8.2)
[2020-03-04 09:48] VITALS: PULSE 60; O2SAT 98
[2020-03-04 09:55] VITALS: BP 144/71; PULSE 60; O2SAT 97
[2020-03-04 10:00] VITALS: BP 152/75; PULSE 59; O2SAT 99
--- NOTE | 2020-03-15 11:09 | PC.NURSE ---
normal saline 300 cc infused at 1015.
== END 2020-03-04 10:25 | disposition home or self-care (01) ==
PROVIDERS: Emergency Provider Emergency Medicine; PCP Family Medicine
DX: N20.0 Calculus of kidney (principal); E11.9 Type 2 diabetes mellitus without complications; C61 Malignant neoplasm of prostate
CPT/HCPCS: 36415; 74178; 80053; 81003; 83690; 85025; 85610; 85730; 96361; 96374; 96375; 99283; 99284; J1885; J2405; Q9967

== ENCOUNTER → 2020-03-15 09:16 | Outpatient (CLI) | payer MEDICARE, SELFPAY | PROVIDERS: PCP Family Medicine; Referring Provider Specialist; Visit Provider Specialist | DX: N20.0 Calculus of kidney (principal) | CPT/HCPCS: 82365 ==

== ENCOUNTER → 2020-05-23 06:56 | Outpatient (CLI) | payer MEDICARE, SELFPAY ==
[2020-05-23 08:44] LABS: Uric Acid 5.5 mg/dL (3.5-8.5)
[2020-05-23 09:10] LABS: Prostate Specific Antigen < 0.064 ng/mL (0.10-4.00)
[2020-05-24 09:06] LABS: Parathyroid Hormone Int 65 pg/mL (15-65)
== END ==
PROVIDERS: PCP Family Medicine; Referring Provider Specialist; Visit Provider Specialist
DX: N20.0 Calculus of kidney (principal); R97.20 Elevated prostate specific antigen [PSA]
CPT/HCPCS: 36415; 82310; 83970; 84153; 84550

== ENCOUNTER → 2020-06-07 10:47 | Outpatient (CLI) | payer MEDICARE, SELFPAY | PROVIDERS: PCP Family Medicine; Referring Provider Specialist; Visit Provider Family Medicine | DX: L59.8 Other specified disorders of the skin and subcutaneous tissue related to radiation (principal); N30.41 Irradiation cystitis with hematuria; E11.628 Type 2 diabetes mellitus with other skin complications; E11.51 Type 2 diabetes mellitus with diabetic peripheral angiopathy without gangrene; Z79.4 Long term (current) use of insulin | CPT/HCPCS: 99204; 99212 ==

== ENCOUNTER → 2020-06-09 11:39 | Outpatient (CLI) | payer MEDICARE, SELFPAY | PROVIDERS: PCP Family Medicine; Referring Provider Family Medicine; Visit Provider Family Medicine | DX: L59.8 Other specified disorders of the skin and subcutaneous tissue related to radiation (principal); N30.41 Irradiation cystitis with hematuria | CPT/HCPCS: 99183; G0277 ==

== ENCOUNTER → 2020-06-10 11:55 | Outpatient (CLI) | payer MEDICARE, SELFPAY | PROVIDERS: PCP Family Medicine; Referring Provider Specialist; Visit Provider Family Medicine | DX: L59.8 Other specified disorders of the skin and subcutaneous tissue related to radiation (principal); N30.41 Irradiation cystitis with hematuria | CPT/HCPCS: 99183; G0277 ==

== ENCOUNTER → 2020-06-13 11:07 | Outpatient (CLI) | payer MEDICARE, SELFPAY | PROVIDERS: PCP Family Medicine; Referring Provider Specialist; Visit Provider Family Medicine | DX: L59.8 Other specified disorders of the skin and subcutaneous tissue related to radiation (principal); N30.41 Irradiation cystitis with hematuria | CPT/HCPCS: 99183; G0277 ==

== ENCOUNTER → 2020-06-14 11:14 | Outpatient (CLI) | payer MEDICARE, SELFPAY | PROVIDERS: PCP Family Medicine; Referring Provider Specialist; Visit Provider Family Medicine | DX: L59.8 Other specified disorders of the skin and subcutaneous tissue related to radiation (principal); N30.41 Irradiation cystitis with hematuria | CPT/HCPCS: 99183; G0277 ==

== ENCOUNTER → 2020-06-15 06:35 | Outpatient (CLI) | payer MEDICARE, SELFPAY ==
[2020-06-15 08:15] LABS: Add Manual Diff / Slide Review NO; Basophils Absolute Auto 100 /uL (0-100); Basophils Percent Auto 1.1 % (0-2); Eosinophils Absolute Auto 400 /uL (0-450); Eosinophils Percent Auto 5.7 % (2-4); Hematocrit 48.9 % (41-53); Hemoglobin 16.6 g/dL (13.5-17.5); Lymphocytes Absolute Auto 2100 /uL (1100-4500); Lymphocytes Percent Auto 27.7 % (25-40); Mean Corpuscular Hemoglobin 31.2 PG (26-34); Mean Corpuscular Volume 91.7 fL (80-100); Monocytes Absolute Auto 900 /uL (0-900); Monocytes Percent Auto 11.3 % (3-14); Neutrophils Absolute Auto 4200 /uL (1500-7000); Neutrophils Percent Auto 54.2 % (50-75); Platelet Count 200 X10^3/uL (150-400); Red Blood Cell Count 5.34 X10^6/uL (4.5-5.9); Red Cell Distribution Width 12.7 % (11.6-14.8); White Blood Cell Count 7.7 X10^3/uL (4.5-11.0)
[2020-06-15 08:23] LABS: Hemoglobin A1C% w Est Avg Glu 6.6 % (4.0-6.0)
[2020-06-15 08:40] LABS: Alanine Aminotransferase 70 IU/L (<50); Albumin 4.5 g/dL (3.5-5.0); Albumin Globulin Ratio 1.7 (1.0-2.8); Alkaline Phosphatase 72 U/L (38-126); Aspartate Aminotransferase 46 IU/L (17-59); BUN Creatinine Ratio 14.5 (6-22); Bilirubin Total 0.4 mg/dL (0.2-1.3); Blood Urea Nitrogen 21 mg/dL (9-20); Calcium 9.4 mg/dL (8.4-10.2); Carbon Dioxide 29 mmol/L (22-32); Chloride 104 mmol/L (98-107); Cholesterol 173 mg/dL (140-199); Estimated Glomerular Filt Rate 48.5 mL/min (>60); Globulin 2.7 g/dL (1.7-4.1); Glucose 116 mg/dL (80-110); HDL Cholesterol 40 mg/dL (40-60); HEMOLYSIS < 15 (0-50); LDL Cholesterol Calculated 93 mg/dL (<100); Potassium 4.3 mmol/L (3.4-5.1); Sodium 139 mmol/L (137-145); Total Protein 7.2 g/dL (6.3-8.2); Triglycerides 200 mg/dL (35-150)
== END ==
PROVIDERS: PCP Family Medicine; Referring Provider Family Medicine; Visit Provider Family Medicine
DX: E11.42 Type 2 diabetes mellitus with diabetic polyneuropathy (principal)
CPT/HCPCS: 36415; 80053; 80061; 83036; 85025

== ENCOUNTER → 2020-06-15 11:08 | Outpatient (CLI) | payer MEDICARE, SELFPAY | PROVIDERS: PCP Family Medicine; Referring Provider Family Medicine; Visit Provider Family Medicine | DX: E11.42 Type 2 diabetes mellitus with diabetic polyneuropathy (principal); L59.8 Other specified disorders of the skin and subcutaneous tissue related to radiation; N30.41 Irradiation cystitis with hematuria | CPT/HCPCS: 36415; 80053; 80061; 83036; 85025; 99183; G0277 ==

== ENCOUNTER → 2020-06-16 13:10 | Outpatient (CLI) | payer MEDICARE, SELFPAY | PROVIDERS: PCP Family Medicine; Referring Provider Family Medicine; Visit Provider Family Medicine | DX: L59.8 Other specified disorders of the skin and subcutaneous tissue related to radiation (principal); N30.41 Irradiation cystitis with hematuria | CPT/HCPCS: 99183; G0277 ==

== ENCOUNTER → 2020-06-17 11:23 | Outpatient (CLI) | payer MEDICARE, SELFPAY | PROVIDERS: PCP Family Medicine; Referring Provider Family Medicine; Visit Provider Family Medicine | DX: L59.8 Other specified disorders of the skin and subcutaneous tissue related to radiation (principal); N30.41 Irradiation cystitis with hematuria | CPT/HCPCS: 99183; G0277 ==

== ENCOUNTER → 2020-06-20 11:05 | Outpatient (CLI) | payer MEDICARE, SELFPAY | PROVIDERS: PCP Family Medicine; Referring Provider Family Medicine; Visit Provider Family Medicine | DX: L59.8 Other specified disorders of the skin and subcutaneous tissue related to radiation (principal); N30.41 Irradiation cystitis with hematuria; R07.1 Chest pain on breathing | CPT/HCPCS: 71046; 99183; G0277 ==

== ENCOUNTER → 2020-06-20 14:02 | Outpatient (CLI) | payer MEDICARE, SELFPAY ==
--- NOTE | 2020-06-20 14:07 | DI.RAD.S_ITS ---
PROCEDURE: XR CHEST 2V INDICATIONS: CHEST PAIN TECHNIQUE: 2 views of the chest were acquired. COMPARISON: None. FINDINGS: Surgical changes and devices: None. Lungs and pleura: Lungs are clear. No pleural effusions or pneumothorax. Mediastinum: Mediastinal contours are normal. Heart size is normal. Bones and chest wall: No suspicious bony abnormalities. Soft tissues appear unremarkable. IMPRESSION: No acute cardiopulmonary disease. Dictated by: Fernando Love [facility] Interpreted: José Miguel Hewitt MD on 06/20/2020 at 14:20 Approved by: José Miguel Hewitt M.D. on 06/20/2020 at 16:16
== END ==
PROVIDERS: PCP Family Medicine; Referring Provider Family Medicine; Visit Provider Family Medicine
DX: R07.1 Chest pain on breathing (principal)
CPT/HCPCS: 71046

== ENCOUNTER → 2020-06-21 11:01 | Outpatient (CLI) | payer MEDICARE, SELFPAY | PROVIDERS: PCP Family Medicine; Referring Provider Family Medicine; Visit Provider Family Medicine | DX: L59.8 Other specified disorders of the skin and subcutaneous tissue related to radiation (principal); N30.41 Irradiation cystitis with hematuria | CPT/HCPCS: 99183; G0277 ==

== ENCOUNTER → 2020-06-22 12:13 | Outpatient (CLI) | payer MEDICARE, SELFPAY | PROVIDERS: PCP Family Medicine; Referring Provider Family Medicine; Visit Provider Family Medicine | DX: L59.8 Other specified disorders of the skin and subcutaneous tissue related to radiation (principal); N30.41 Irradiation cystitis with hematuria | CPT/HCPCS: 99183; G0277 ==

== ENCOUNTER → 2020-06-23 11:47 | Outpatient (CLI) | payer MEDICARE, SELFPAY | PROVIDERS: PCP Family Medicine; Referring Provider Family Medicine; Visit Provider Family Medicine | DX: L59.8 Other specified disorders of the skin and subcutaneous tissue related to radiation (principal); N30.41 Irradiation cystitis with hematuria | CPT/HCPCS: 99183; G0277 ==

== ENCOUNTER → 2020-06-24 12:25 | Outpatient (CLI) | payer MEDICARE, SELFPAY | PROVIDERS: PCP Family Medicine; Referring Provider Family Medicine; Visit Provider Family Medicine | DX: L59.8 Other specified disorders of the skin and subcutaneous tissue related to radiation (principal); N30.41 Irradiation cystitis with hematuria | CPT/HCPCS: 99183; G0277 ==

== ENCOUNTER → 2020-06-27 11:00 | Outpatient (CLI) | payer MEDICARE, SELFPAY | PROVIDERS: PCP Family Medicine; Referring Provider Family Medicine; Visit Provider Family Medicine | DX: L59.8 Other specified disorders of the skin and subcutaneous tissue related to radiation (principal); N30.41 Irradiation cystitis with hematuria | CPT/HCPCS: 99183; G0277 ==

== ENCOUNTER → 2020-06-30 11:13 | Outpatient (CLI) | payer MEDICARE, SELFPAY | PROVIDERS: PCP Family Medicine; Referring Provider Specialist; Visit Provider Family Medicine | DX: L59.8 Other specified disorders of the skin and subcutaneous tissue related to radiation (principal); N30.41 Irradiation cystitis with hematuria | CPT/HCPCS: 99183; G0277 ==

== ENCOUNTER → 2020-07-01 11:03 | Outpatient (CLI) | payer MEDICARE, SELFPAY | PROVIDERS: PCP Family Medicine; Referring Provider Family Medicine; Visit Provider Family Medicine | DX: L59.8 Other specified disorders of the skin and subcutaneous tissue related to radiation (principal); N30.41 Irradiation cystitis with hematuria | CPT/HCPCS: 99183; G0277 ==

== ENCOUNTER → 2020-07-04 10:46 | Outpatient (CLI) | payer MEDICARE, SELFPAY | PROVIDERS: PCP Family Medicine; Referring Provider Family Medicine; Visit Provider Family Medicine | DX: L59.8 Other specified disorders of the skin and subcutaneous tissue related to radiation (principal); N30.41 Irradiation cystitis with hematuria | CPT/HCPCS: 99183; G0277 ==

== ENCOUNTER → 2020-07-05 10:54 | Outpatient (CLI) | payer MEDICARE, SELFPAY | PROVIDERS: PCP Family Medicine; Referring Provider Family Medicine; Visit Provider Family Medicine | DX: L59.8 Other specified disorders of the skin and subcutaneous tissue related to radiation (principal); N30.41 Irradiation cystitis with hematuria | CPT/HCPCS: 99183; G0277 ==

== ENCOUNTER → 2020-07-07 11:27 | Outpatient (CLI) | payer MEDICARE, SELFPAY | PROVIDERS: PCP Family Medicine; Referring Provider Family Medicine; Visit Provider Family Medicine | DX: L59.8 Other specified disorders of the skin and subcutaneous tissue related to radiation (principal); N60.41 Mammary duct ectasia of right breast | CPT/HCPCS: 99183; G0277 ==

== ENCOUNTER → 2020-07-08 10:43 | Outpatient (CLI) | payer MEDICARE, SELFPAY | PROVIDERS: PCP Family Medicine; Referring Provider Family Medicine; Visit Provider Nurse Practitioner Family | DX: L59.8 Other specified disorders of the skin and subcutaneous tissue related to radiation (principal); N30.41 Irradiation cystitis with hematuria | CPT/HCPCS: 99183; G0277 ==

== ENCOUNTER → 2020-07-11 11:47 | Outpatient (CLI) | payer MEDICARE, SELFPAY | PROVIDERS: PCP Family Medicine; Referring Provider Family Medicine; Visit Provider Family Medicine | DX: L59.8 Other specified disorders of the skin and subcutaneous tissue related to radiation (principal); N30.41 Irradiation cystitis with hematuria | CPT/HCPCS: 99183; G0277 ==

== ENCOUNTER → 2020-07-12 12:54 | Outpatient (CLI) | payer MEDICARE, SELFPAY | PROVIDERS: PCP Family Medicine; Referring Provider Family Medicine; Visit Provider Family Medicine | DX: L59.8 Other specified disorders of the skin and subcutaneous tissue related to radiation (principal); N30.41 Irradiation cystitis with hematuria | CPT/HCPCS: 99183; G0277 ==

== ENCOUNTER → 2020-07-13 13:36 | Outpatient (CLI) | payer MEDICARE, SELFPAY | PROVIDERS: PCP Family Medicine; Referring Provider Specialist; Visit Provider Family Medicine | DX: L59.8 Other specified disorders of the skin and subcutaneous tissue related to radiation (principal); N30.41 Irradiation cystitis with hematuria | CPT/HCPCS: 99183; G0277 ==

== ENCOUNTER → 2020-07-14 11:24 | Outpatient (CLI) | payer MEDICARE, SELFPAY | PROVIDERS: PCP Family Medicine; Referring Provider Specialist; Visit Provider Family Medicine | DX: L59.8 Other specified disorders of the skin and subcutaneous tissue related to radiation (principal); N30.41 Irradiation cystitis with hematuria | CPT/HCPCS: 99183; G0277 ==

== ENCOUNTER → 2020-07-15 11:35 | Outpatient (CLI) | payer MEDICARE, SELFPAY | PROVIDERS: PCP Family Medicine; Referring Provider Specialist; Visit Provider Nurse Practitioner Family | DX: R53.83 Other fatigue (principal); L59.8 Other specified disorders of the skin and subcutaneous tissue related to radiation; N30.41 Irradiation cystitis with hematuria | CPT/HCPCS: 36415; 80053; 85025; 99183; G0277 ==

== ENCOUNTER → 2020-07-15 15:43 | Outpatient (CLI) | payer MEDICARE, SELFPAY ==
[2020-07-15 16:00] LABS: Add Manual Diff / Slide Review NO; Basophils Absolute Auto 100 /uL (0-100); Basophils Percent Auto 1.3 % (0-2); Eosinophils Absolute Auto 200 /uL (0-450); Eosinophils Percent Auto 3.5 % (2-4); Hematocrit 46.6 % (41-53); Hemoglobin 15.5 g/dL (13.5-17.5); Lymphocytes Absolute Auto 1600 /uL (1100-4500); Mean Corpuscular HGB Conc 33.2 % (30-36); Mean Corpuscular Hemoglobin 30.3 PG (26-34); Mean Corpuscular Volume 91.3 fL (80-100); Monocytes Absolute Auto 600 /uL (0-900); Monocytes Percent Auto 9.5 % (3-14); Neutrophils Absolute Auto 3700 /uL (1500-7000); Neutrophils Percent Auto 59.7 % (50-75); Platelet Count 199 X10^3/uL (150-400); Red Blood Cell Count 5.11 X10^6/uL (4.5-5.9); Red Cell Distribution Width 12.7 % (11.6-14.8); White Blood Cell Count 6.2 X10^3/uL (4.5-11.0)
[2020-07-15 16:27] LABS: Alanine Aminotransferase 67 IU/L (<50); Albumin 4.3 g/dL (3.5-5.0); Albumin Globulin Ratio 1.6 (1.0-2.8); Alkaline Phosphatase 64 U/L (38-126); Aspartate Aminotransferase 55 IU/L (17-59); BUN Creatinine Ratio 14.9 (6-22); Bilirubin Total 0.6 mg/dL (0.2-1.3); Blood Urea Nitrogen 18 mg/dL (9-20); Calcium 9.6 mg/dL (8.4-10.2); Carbon Dioxide 29 mmol/L (22-32); Chloride 106 mmol/L (98-107); Estimated Glomerular Filt Rate 59.8 mL/min (>60); Globulin 2.7 g/dL (1.7-4.1); Glucose 120 mg/dL (80-110); HEMOLYSIS < 15 (0-50); Potassium 4.4 mmol/L (3.4-5.1); Sodium 141 mmol/L (137-145)
== END ==
PROVIDERS: PCP Family Medicine; Referring Provider Registered Nurse; Visit Provider Registered Nurse
DX: R53.83 Other fatigue (principal)
CPT/HCPCS: 36415; 80053; 85025

== ENCOUNTER → 2020-07-18 09:37 | Outpatient (CLI) | payer MEDICARE, SELFPAY ==
[2020-07-18 12:05] LABS: COVID19 -Nasal RAPID Negative (Negative)
== END ==
PROVIDERS: PCP Family Medicine; Visit Provider Family Medicine Sleep Medicine
DX: Z20.822 Contact with and (suspected) exposure to COVID-19 (principal); G47.33 Obstructive sleep apnea (adult) (pediatric); G47.19 Other hypersomnia
CPT/HCPCS: 87635; 95810

== ENCOUNTER → 2020-07-20 08:01 | Outpatient (CLI) | payer MEDICARE, SELFPAY ==
--- NOTE | 2020-07-20 08:03 | DI.US.S_ITS ---
PROCEDURE: US ABDOMEN COMPLETE INDICATIONS: PAIN TECHNIQUE: Real-time scanning was performed of the abdominal and retroperitoneal organs, with image documentation. COMPARISON: None. FINDINGS: Liver: Liver is normal in size and homogeneous in echotexture. Gallbladder: The gallbladder contains a few nonobstructing mobile stones layering dependently, the largest measures 1.2 cm. Gallbladder wall is normal thickness at 1.3 mm. No pericholecystic fluid or sonographic Townsend sign. Biliary ducts: Intrahepatic bile ducts are non-dilated. Extrahepatic bile duct caliber measures 5.9 mm. Normal is 6-7 mm or less in diameter, or 10 mm or less post-cholecystectomy. Pancreas: Visualized portions of the pancreas are sonographically normal. Spleen: Spleen is normal in size and homogeneous in echotexture. Kidneys: Kidneys are normal in size and echotexture. Right kidney measures 13.6 cm long; left kidney measures 13.7 cm long. No hydronephrosis or nephrolithiasis. No solid masses. Aorta: Visualized aorta is normal in caliber at less than 3 cm. Iliacs: Proximal common iliac arteries are normal in caliber at less than 2.5 cm. IVC: Intrahepatic inferior vena cava is patent. Miscellaneous: No free abdominal fluid. IMPRESSION: 1. Cholelithiasis without sonographic evidence of acute cholecystitis. Dictated by: Rosamaria Myers M.D. on 07/20/2020 at 8:36 Approved by: Rosamaria Myers M.D. on 07/20/2020 at 8:38
== END ==
PROVIDERS: PCP Family Medicine; Referring Provider Registered Nurse; Visit Provider Registered Nurse
DX: R10.9 Unspecified abdominal pain (principal); K80.20 Calculus of gallbladder without cholecystitis without obstruction
CPT/HCPCS: 76700

== ENCOUNTER → 2020-07-20 10:59 | Outpatient (CLI) | payer MEDICARE, SELFPAY | PROVIDERS: PCP Family Medicine; Referring Provider Specialist; Visit Provider Family Medicine | DX: R10.9 Unspecified abdominal pain (principal); K80.20 Calculus of gallbladder without cholecystitis without obstruction; L59.8 Other specified disorders of the skin and subcutaneous tissue related to radiation; N30.41 Irradiation cystitis with hematuria | CPT/HCPCS: 76700; 99183; G0277 ==

== ENCOUNTER → 2020-07-21 10:48 | Outpatient (CLI) | payer MEDICARE, SELFPAY | PROVIDERS: PCP Family Medicine; Referring Provider Family Medicine; Visit Provider Nurse Practitioner Family | DX: L59.8 Other specified disorders of the skin and subcutaneous tissue related to radiation (principal); N30.41 Irradiation cystitis with hematuria | CPT/HCPCS: 99183; G0277 ==

== ENCOUNTER → 2020-07-22 11:12 | Outpatient (CLI) | payer MEDICARE, SELFPAY | PROVIDERS: PCP Family Medicine; Referring Provider Specialist; Visit Provider Nurse Practitioner Family | DX: L59.8 Other specified disorders of the skin and subcutaneous tissue related to radiation (principal); N30.41 Irradiation cystitis with hematuria | CPT/HCPCS: 99183; G0277 ==

== ENCOUNTER → 2020-07-25 12:09 | Outpatient (CLI) | payer MEDICARE, SELFPAY | PROVIDERS: PCP Family Medicine; Referring Provider Specialist; Visit Provider Family Medicine | DX: L59.8 Other specified disorders of the skin and subcutaneous tissue related to radiation (principal); N30.41 Irradiation cystitis with hematuria | CPT/HCPCS: 99183; G0277 ==

== ENCOUNTER → 2020-07-26 12:52 | Outpatient (CLI) | payer MEDICARE, SELFPAY | PROVIDERS: PCP Family Medicine; Referring Provider Family Medicine; Visit Provider Family Medicine | DX: L59.8 Other specified disorders of the skin and subcutaneous tissue related to radiation (principal); N30.41 Irradiation cystitis with hematuria | CPT/HCPCS: 99183; G0277 ==

== ENCOUNTER → 2020-07-27 12:22 | Outpatient (CLI) | payer MEDICARE, SELFPAY | PROVIDERS: PCP Family Medicine; Referring Provider Family Medicine; Visit Provider Family Medicine | DX: L59.8 Other specified disorders of the skin and subcutaneous tissue related to radiation (principal); G47.33 Obstructive sleep apnea (adult) (pediatric); G47.19 Other hypersomnia; N30.41 Irradiation cystitis with hematuria | CPT/HCPCS: 99183; 99212; G0277 ==

== ENCOUNTER → 2020-08-19 09:26 | Outpatient (CLI) | payer MEDICARE, SELFPAY ==
[2020-08-19 11:18] LABS: COVID19 -Nasal RAPID Negative (Negative)
== END ==
PROVIDERS: PCP Family Medicine; Visit Provider Specialist
DX: Z20.822 Contact with and (suspected) exposure to COVID-19 (principal)
CPT/HCPCS: 87635; C9803

== ENCOUNTER 2020-08-22 09:47 | Day surgery (SDC) | payer MEDICARE, SELFPAY ==
[2020-08-22] VITALS (7 sets, daily range): BP systolic 103–137; BP diastolic 73–83; PULSE 68–84; RESP 10–16; TEMP 36.3–36.8; O2SAT 92–99; BMI 35.5
[2020-08-22] MEDS: LACTATED RINGERS 1,000 ML 200 ML IV (10:01)
--- NOTE | 2020-08-22 10:55 | PM.HP.1 ---
History of Present Illness History of Present Illness Date Patient Seen: 08/22/20 Time Patient Seen: 10:56 Chief complaint: [facility] [place] Narrative: The patient presents for colorectal sreening. His most recent colonoscopy was 2017 significant for benign polyps.. No personal or family history of colon cancer. On further history denies any recent gastrointestinal symptoms other than constipation and occasional left lower quadrant pain. History of uncomplicated diverticulitis.. No nausea, vomiting, loss of appetite, unexplained weight loss, change in bowel habits, diarrhea, melena, hematochezia, or bright red blood per rectum. Patient History Medical History Allergies (~1977) Anxiety and depression Benign familial tremor (~2004) Chicken pox (~1968) Chronic nasal congestion Chronic throat clearing Colon polyps (~2015) Compulsive overeating Constipation (~2019) Depression Diabetes (~2011) Diabetic nephropathy Diverticular disease (~2016) Erectile dysfunction Fractures Gross hematuria (~2017) Hearing loss (~2014) Hemorrhoid (~1999) History of malignant neoplasm of prostate History of nephrolithiasis (~2010) History of urinary incontinence (~2004) HTN (hypertension) Hypercholesterolemia Nephrolithiasis HOWARD (obstructive sleep apnea) Peripheral neuropathy (~2015) Prostate cancer (~2002) Prostate cancer Radiation cystitis Skin cancer (~2016) Skin tag (~2016) Sleep apnea (~2004) Type 2 diabetes mellitus with peripheral neuropathy Wrist pain (~2019) Surgical History Anesthesia H/O cystoscopy H/O prostate biopsy H/O prostatectomy H/O transurethral resection of prostate (~11/2004) H/O vasectomy History of surgery on right wrist (~2000) Family & Social History Family History Father Colon cancer Loud snoring Insomnia Obesity Mother Cancer Family/Other Alcohol abuse Substance abuse Social History: household members spouse Tobacco & Substance use: Smoking Status Never smoker alcohol intake current alcohol intake frequency holiday/special occasion Substance Use Type does not use Meds Home Medications and Allergies Home Medications Medication Instructions Recorded Confirmed Type aspirin 81 mg tablet,delayed 81 mg PO DAILY 02/04/20 08/22/20 History release losartan 50 mg tablet See Rx Instructions .ROUTE 06/14/20 08/22/20 Rx .COMPLEX #90 tab insulin aspart U-100 100 unit/mL 15 unit SUBCUT TID #10 ml 06/30/20 08/22/20 Rx subcutaneous solution insulin glargine 100 unit/mL (3 70 unit SUBCUT DAILY #60 ml 06/30/20 08/22/20 Rx mL) subcutaneous pen bupropion HCl 300 mg 24 hr tablet, See Rx Instructions .ROUTE 07/12/20 08/22/20 Rx extended release .COMPLEX #90 tab Ultrafine TM-short Pen Needle #100 ea 07/14/20 08/09/20 Rx Woodruff Fit [id number] simvastatin 20 mg tablet 20 mg PO DAILY #90 tab 08/09/20 08/22/20 Rx Allergies Allergy/AdvReac Type Severity Reaction Status Date / Time tree and shrub pollen Allergy Mild Verified 08/22/20 10:02 Review of Systems Review of Systems ROS: Yes All systems reviewed with the patient and are negative except as otherwise documented Exam Vital Signs (past 8 hours): - 08/22/20 10:22 Temperature 98.2 F Pulse Rate 84 Respiratory Rate 15 Blood Pressure 137/82 Pulse Oximetry 99 Oxygen Delivery Method Room Air Narrative Exam Narrative: GENERAL-well developed adult male, no acute distress HEENT-no scleral icterus, hearing intact NECK-no JVD, trachea midline CVS- regular rate, no peripheral edema RESP-unlabored respiratory effort, no audible wheezing GI-soft, nontender nondistended MSK-no cyanosis or clubbing, extremities without deformity SKIN-warm, dry NEURO-alert and oriented, no focal deficits PYSCH-Appropriate mood and affect Assessment & Plan Assessment & Plan narrative: The patient requires colorectal screening and colonoscopy is recommended. Technical details were discussed. Risks, benefits, alternatives explained. Risks including but not limited to myocardial infarction, aspiration, bleeding, pain, missed lesion, incomplete examination, need for further radiographic studies, colonic perforation, and need for major abdominal surgery were discussed. All questions were answered to their satisfaction, and they are in agreement with this plan.
[2020-08-22] MEDS: MIDAZOLAM 5 MG/5 ML VIAL IV (11:20)
[2020-08-22] MEDS: fentaNYL 250 MCG/5 ML INJ IV (11:20)
--- NOTE | 2020-08-22 11:35 | PM.OP.ENDO ---
Operative Date/Time/Diagnoses Date of procedure: 08/22/20 Time of procedure: 11:35 Pre-op diagnosis: Personal history of colonic polyps Post-op diagnosis: same Procedure & Clinicians Study performed: Colonoscopy Same procedure as scheduled: Yes Indications: Personal history of colonic polyps Surgeon: Bernardo Whalen Procedure Notes Procedure in detail: Medications: Conscious sedation using 6 mg IV midazolam and 200 mcg IV of fentanyl The history and physical was performed/updated and the patient is ASA class is 2. The procedure was discussed in detail with the patient. Potential risks complications including infection, bleeding, missed diagnosis, perforation, need for surgery, and were explained. Their questions were answered and informed consent was obtained. Patient was brought to the procedure room and placed standard monitoring equipment. The patient's vital signs were monitored continuously throughout the entire procedure. Prior to starting time-out was performed. The patient was placed in the left lateral recumbent position. Procedural sedation was administered. Examination began with a thorough inspection of the perianal area there was no evidence of fissures, fistulae, external hemorrhoids or cutaneous malignancy. The colonoscopy scope was then placed into the anal canal and was advanced to the cecum, which was identified by the ileocecal valve, the appendiceal orifice and the confluence of the taenia. The scope was then slowly withdrawn examining colon thoroughly in all directions, irrigating it of any residual stool. 1. Normal healthy appearing colon 2. No masses or polyps 3. Mild sigmoid diverticulosis 4. Grade 1 internal hemorrhoids Thepatient tolerated the procedure well. They will be discharged once criteria are met. The prep was of good/excellent quality. The withdrawl time was 7 minutes. The sedation time was 30 minutes. Specimen(s): none sent Complications: none Impression: Normal colonoscopy Post-procedure Recommendations: Colonscopy in 10 years Disposition: same day surgery
--- NOTE | 2020-08-22 12:14 | SUR.PHASEII ---
Pt up steady on feet. Getting dressed.
== END 2020-08-22 12:20 | disposition home or self-care (01) ==
PROVIDERS: PCP Family Medicine; Referring Provider Surgery; Visit Provider Surgery
PROC: 0DJD8ZZ Inspection of Lower Intestinal Tract, Via Natural or Artificial Opening Endoscopic (ICD-10-PCS; CPT 45378; principal; 2020-08-22 10:45)
DX: Z12.11 Encounter for screening for malignant neoplasm of colon (principal); Z86.010 Personal history of colon polyps; Z79.4 Long term (current) use of insulin; I10 Essential (primary) hypertension; G47.33 Obstructive sleep apnea (adult) (pediatric); E11.42 Type 2 diabetes mellitus with diabetic polyneuropathy; K57.30 Diverticulosis of large intestine without perforation or abscess without bleeding; K64.0 First degree hemorrhoids
CPT/HCPCS: G0105; 82962; 99152; 99153; J2250; J3010

== ENCOUNTER → 2020-09-13 13:08 | Outpatient (CLI) | payer MEDICARE, SELFPAY | PROVIDERS: PCP Family Medicine; Referring Provider Family Medicine; Visit Provider Family Medicine | DX: L59.8 Other specified disorders of the skin and subcutaneous tissue related to radiation (principal); N30.41 Irradiation cystitis with hematuria | CPT/HCPCS: 99183; G0277 ==

== ENCOUNTER → 2020-09-14 13:28 | Outpatient (CLI) | payer MEDICARE, SELFPAY | PROVIDERS: PCP Family Medicine; Referring Provider Specialist; Visit Provider Family Medicine | DX: L59.8 Other specified disorders of the skin and subcutaneous tissue related to radiation (principal); N30.41 Irradiation cystitis with hematuria | CPT/HCPCS: 99183; 99212; 99213; G0277 ==

== ENCOUNTER → 2020-09-15 13:21 | Outpatient (CLI) | payer MEDICARE, SELFPAY | PROVIDERS: PCP Family Medicine; Referring Provider Specialist; Visit Provider Family Medicine | DX: L59.8 Other specified disorders of the skin and subcutaneous tissue related to radiation (principal); N30.41 Irradiation cystitis with hematuria | CPT/HCPCS: 99183; G0277 ==

== ENCOUNTER → 2020-09-16 12:38 | Outpatient (CLI) | payer MEDICARE, SELFPAY | PROVIDERS: PCP Family Medicine; Referring Provider Family Medicine; Visit Provider Nurse Practitioner Family | DX: L59.8 Other specified disorders of the skin and subcutaneous tissue related to radiation (principal); N30.41 Irradiation cystitis with hematuria | CPT/HCPCS: 99183; G0277 ==

== ENCOUNTER → 2020-09-19 12:47 | Outpatient (CLI) | payer MEDICARE, SELFPAY | PROVIDERS: PCP Family Medicine; Referring Provider Family Medicine; Visit Provider Family Medicine | DX: L59.8 Other specified disorders of the skin and subcutaneous tissue related to radiation (principal); N30.41 Irradiation cystitis with hematuria | CPT/HCPCS: 99183; G0277 ==

== ENCOUNTER → 2020-09-20 14:05 | Outpatient (CLI) | payer MEDICARE, SELFPAY | PROVIDERS: PCP Family Medicine; Referring Provider Family Medicine; Visit Provider Family Medicine | DX: L59.8 Other specified disorders of the skin and subcutaneous tissue related to radiation (principal); N30.41 Irradiation cystitis with hematuria | CPT/HCPCS: 99183; G0277 ==

== ENCOUNTER → 2020-09-22 09:18 | Outpatient (CLI) | payer MEDICARE, SELFPAY ==
[2020-09-22 10:13] LABS: Add Manual Diff / Slide Review NO; Basophils Absolute Auto 100 /uL (0-100); Basophils Percent Auto 1.2 % (0-2); Eosinophils Absolute Auto 400 /uL (0-450); Eosinophils Percent Auto 6.1 % (2-4); Hemoglobin 16.1 g/dL (13.5-17.5); Lymphocytes Absolute Auto 1900 /uL (1100-4500); Lymphocytes Percent Auto 26.9 % (25-40); Mean Corpuscular HGB Conc 33.6 % (30-36); Mean Corpuscular Hemoglobin 31.2 PG (26-34); Mean Corpuscular Volume 92.8 fL (80-100); Monocytes Absolute Auto 700 /uL (0-900); Monocytes Percent Auto 9.5 % (3-14); Neutrophils Absolute Auto 3900 /uL (1500-7000); Neutrophils Percent Auto 56.3 % (50-75); Platelet Count 185 X10^3/uL (150-400); Red Blood Cell Count 5.17 X10^6/uL (4.5-5.9); Red Cell Distribution Width 13.2 % (11.6-14.8); White Blood Cell Count 6.9 X10^3/uL (4.5-11.0)
[2020-09-22 10:58] LABS: Alanine Aminotransferase 54 IU/L (<50); Albumin 4.1 g/dL (3.5-5.0); Albumin Globulin Ratio 1.6 (1.0-2.8); Alkaline Phosphatase 72 U/L (38-126); Aspartate Aminotransferase 35 IU/L (17-59); BUN Creatinine Ratio 16.2 (6-22); Bilirubin Total 0.6 mg/dL (0.2-1.3); Blood Urea Nitrogen 19 mg/dL (9-20); Calcium 9.5 mg/dL (8.4-10.2); Carbon Dioxide 27 mmol/L (22-32); Chloride 106 mmol/L (98-107); Cholesterol 168 mg/dL (140-199); Estimated Glomerular Filt Rate > 60.0 mL/min (>60); Globulin 2.6 g/dL (1.7-4.1); Glucose 129 mg/dL (80-110); HDL Cholesterol 38 mg/dL (40-60); HEMOLYSIS < 15 (0-50); LDL Cholesterol Calculated 93 mg/dL (<100); Potassium 4.5 mmol/L (3.4-5.1); Sodium 140 mmol/L (137-145); Total Protein 6.7 g/dL (6.3-8.2); Triglycerides 186 mg/dL (35-150)
== END ==
PROVIDERS: PCP Family Medicine; Referring Provider Family Medicine; Visit Provider Family Medicine
DX: E11.42 Type 2 diabetes mellitus with diabetic polyneuropathy (principal); E78.00 Pure hypercholesterolemia, unspecified; I10 Essential (primary) hypertension
CPT/HCPCS: 36415; 80053; 80061; 85025

== ENCOUNTER → 2020-09-22 14:49 | Outpatient (CLI) | payer MEDICARE, SELFPAY | PROVIDERS: PCP Family Medicine; Referring Provider Family Medicine; Visit Provider Family Medicine | DX: L59.8 Other specified disorders of the skin and subcutaneous tissue related to radiation (principal); N30.41 Irradiation cystitis with hematuria | CPT/HCPCS: 99183; G0277 ==

== ENCOUNTER → 2020-09-23 14:16 | Outpatient (CLI) | payer MEDICARE, SELFPAY | PROVIDERS: PCP Family Medicine; Referring Provider Family Medicine; Visit Provider Nurse Practitioner Family | DX: L59.8 Other specified disorders of the skin and subcutaneous tissue related to radiation (principal); N30.41 Irradiation cystitis with hematuria | CPT/HCPCS: 99183; G0277 ==

== ENCOUNTER → 2020-09-23 16:39 | Outpatient (CLI) | payer MEDICARE, SELFPAY ==
[2020-09-23 17:24] LABS: Hemoglobin A1C% w Est Avg Glu 6.2 % (4.0-6.0)
== END ==
PROVIDERS: PCP Family Medicine; Referring Provider Family Medicine; Visit Provider Family Medicine
DX: E11.42 Type 2 diabetes mellitus with diabetic polyneuropathy (principal)
CPT/HCPCS: 36415; 83036

== ENCOUNTER → 2020-09-26 13:30 | Outpatient (CLI) | payer MEDICARE, SELFPAY | PROVIDERS: PCP Family Medicine; Referring Provider Family Medicine; Visit Provider Family Medicine | DX: L59.8 Other specified disorders of the skin and subcutaneous tissue related to radiation (principal); N30.41 Irradiation cystitis with hematuria | CPT/HCPCS: 99183; G0277 ==

== ENCOUNTER → 2020-09-27 12:32 | Outpatient (CLI) | payer MEDICARE, SELFPAY | PROVIDERS: PCP Family Medicine; Referring Provider Family Medicine; Visit Provider Family Medicine | DX: L59.8 Other specified disorders of the skin and subcutaneous tissue related to radiation (principal); N30.41 Irradiation cystitis with hematuria; Z85.46 Personal history of malignant neoplasm of prostate; N30.40 Irradiation cystitis without hematuria; Z68.36 Body mass index [BMI] 36.0-36.9, adult | CPT/HCPCS: 51798; 52000; 81002; 99183; 99214; G0277 ==

== ENCOUNTER → 2020-10-19 10:58 | Outpatient (CLI) | payer MEDICARE, SELFPAY | PROVIDERS: PCP Family Medicine; Referring Provider Family Medicine; Visit Provider Family Medicine | DX: L59.8 Other specified disorders of the skin and subcutaneous tissue related to radiation (principal); N30.41 Irradiation cystitis with hematuria | CPT/HCPCS: 99212; 99214 ==

== ENCOUNTER → 2020-10-25 13:46 | Outpatient (CLI) | payer MEDICARE, SELFPAY | PROVIDERS: PCP Family Medicine; Referring Provider Family Medicine; Visit Provider Family Medicine | DX: L59.8 Other specified disorders of the skin and subcutaneous tissue related to radiation (principal); N30.41 Irradiation cystitis with hematuria | CPT/HCPCS: 99183; G0277 ==

== ENCOUNTER → 2020-10-26 10:54 | Outpatient (CLI) | payer MEDICARE, SELFPAY | PROVIDERS: PCP Family Medicine; Referring Provider Family Medicine; Visit Provider Family Medicine | DX: L59.8 Other specified disorders of the skin and subcutaneous tissue related to radiation (principal); N30.41 Irradiation cystitis with hematuria | CPT/HCPCS: 99183; G0277 ==

== ENCOUNTER → 2020-10-27 12:52 | Outpatient (CLI) | payer MEDICARE, SELFPAY | PROVIDERS: PCP Family Medicine; Referring Provider Family Medicine; Visit Provider Family Medicine | DX: L59.8 Other specified disorders of the skin and subcutaneous tissue related to radiation (principal); N30.41 Irradiation cystitis with hematuria | CPT/HCPCS: 99183; G0277 ==

== ENCOUNTER → 2020-10-31 13:06 | Outpatient (CLI) | payer MEDICARE, SELFPAY | PROVIDERS: PCP Family Medicine; Referring Provider Family Medicine; Visit Provider Family Medicine | DX: L59.8 Other specified disorders of the skin and subcutaneous tissue related to radiation (principal); N30.41 Irradiation cystitis with hematuria | CPT/HCPCS: 99183; G0277 ==

== ENCOUNTER → 2020-11-01 12:48 | Outpatient (CLI) | payer MEDICARE, SELFPAY | PROVIDERS: PCP Family Medicine; Referring Provider Family Medicine; Visit Provider Family Medicine | DX: L59.8 Other specified disorders of the skin and subcutaneous tissue related to radiation (principal); N30.41 Irradiation cystitis with hematuria | CPT/HCPCS: 99183; G0277 ==

== ENCOUNTER → 2020-11-02 14:28 | Outpatient (CLI) | payer MEDICARE, SELFPAY | PROVIDERS: PCP Family Medicine; Referring Provider Family Medicine; Visit Provider Family Medicine | DX: L59.8 Other specified disorders of the skin and subcutaneous tissue related to radiation (principal); N30.41 Irradiation cystitis with hematuria | CPT/HCPCS: 99183; G0277 ==

== ENCOUNTER → 2020-11-03 14:24 | Outpatient (CLI) | payer MEDICARE, SELFPAY | PROVIDERS: PCP Family Medicine; Referring Provider Family Medicine; Visit Provider Family Medicine | DX: L59.8 Other specified disorders of the skin and subcutaneous tissue related to radiation (principal); N30.41 Irradiation cystitis with hematuria | CPT/HCPCS: 99183; G0277 ==

== ENCOUNTER → 2020-11-04 13:17 | Outpatient (CLI) | payer MEDICARE, SELFPAY | PROVIDERS: PCP Family Medicine; Referring Provider Family Medicine; Visit Provider Nurse Practitioner Family | DX: L59.8 Other specified disorders of the skin and subcutaneous tissue related to radiation (principal); N30.41 Irradiation cystitis with hematuria | CPT/HCPCS: 99183; G0277 ==

== ENCOUNTER → 2020-11-07 10:54 | Outpatient (CLI) | payer MEDICARE, SELFPAY | PROVIDERS: PCP Family Medicine; Referring Provider Family Medicine; Visit Provider Family Medicine | DX: L59.8 Other specified disorders of the skin and subcutaneous tissue related to radiation (principal); N30.41 Irradiation cystitis with hematuria | CPT/HCPCS: 99183; G0277 ==

== ENCOUNTER → 2020-11-08 08:46 | Outpatient (CLI) | payer MEDICARE, SELFPAY | PROVIDERS: PCP Family Medicine; Referring Provider Family Medicine; Visit Provider Family Medicine | DX: L59.8 Other specified disorders of the skin and subcutaneous tissue related to radiation (principal); N30.41 Irradiation cystitis with hematuria | CPT/HCPCS: 99183; G0277 ==

== ENCOUNTER → 2020-12-23 11:04 | Outpatient (CLI) | payer MEDICARE, SELFPAY ==
[2020-12-23 11:26] LABS: Add Manual Diff / Slide Review NO; Basophils Absolute Auto 100 /uL (0-100); Basophils Percent Auto 1.5 % (0-2); Eosinophils Absolute Auto 400 /uL (0-450); Hematocrit 46.3 % (41-53); Hemoglobin 15.6 g/dL (13.5-17.5); Lymphocytes Absolute Auto 1800 /uL (1100-4500); Lymphocytes Percent Auto 28.9 % (25-40); Mean Corpuscular HGB Conc 33.8 % (30-36); Mean Corpuscular Hemoglobin 31.2 PG (26-34); Mean Corpuscular Volume 92.3 fL (80-100); Monocytes Absolute Auto 600 /uL (0-900); Monocytes Percent Auto 9.9 % (3-14); Neutrophils Absolute Auto 3300 /uL (1500-7000); Neutrophils Percent Auto 53.7 % (50-75); Platelet Count 206 X10^3/uL (150-400); Red Blood Cell Count 5.01 X10^6/uL (4.5-5.9); Red Cell Distribution Width 12.6 % (11.6-14.8); White Blood Cell Count 6.2 X10^3/uL (4.5-11.0)
[2020-12-23 11:47] LABS: Hemoglobin A1C% w Est Avg Glu 6.3 % (4.0-6.0)
[2020-12-23 12:51] LABS: Alanine Aminotransferase 38 IU/L (<50); Albumin 4.3 g/dL (3.5-5.0); Albumin Globulin Ratio 1.6 (1.0-2.8); Alkaline Phosphatase 74 U/L (38-126); Aspartate Aminotransferase 35 IU/L (17-59); BUN Creatinine Ratio 13.7 (6-22); Bilirubin Total 0.5 mg/dL (0.2-1.3); Blood Urea Nitrogen 17 mg/dL (9-20); Calcium 9.2 mg/dL (8.4-10.2); Carbon Dioxide 25 mmol/L (22-32); Chloride 108 mmol/L (98-107); Globulin 2.7 g/dL (1.7-4.1); Glucose 135 mg/dL (80-110); HEMOLYSIS < 15 (0-50); Potassium 4.3 mmol/L (3.4-5.1); Sodium 140 mmol/L (137-145)
[2020-12-23 13:23] LABS: TSH w/ Reflex to FT4 1.32 uIU/mL (0.47-4.68)
[2020-12-23 13:39] LABS: Vitamin B12 590 pg/mL (239-931)
[2020-12-23 16:07] LABS: Vitamin D 25 Hydroxy (D3) 29.1 ng/mL (30.0-100.0)
== END ==
PROVIDERS: PCP Family Medicine; Referring Provider Family Medicine; Visit Provider Family Medicine
DX: E11.42 Type 2 diabetes mellitus with diabetic polyneuropathy (principal); I10 Essential (primary) hypertension; E78.00 Pure hypercholesterolemia, unspecified
CPT/HCPCS: 36415; 80053; 82306; 82607; 83036; 84443; 85025

== ENCOUNTER → 2021-01-17 15:12 | Outpatient (CLI) | payer MEDICARE, SELFPAY ==
[2021-01-17 15:48] LABS: Add Manual Diff / Slide Review NO; Basophils Absolute Auto 100 /uL (0-100); Basophils Percent Auto 1.2 % (0-2); Eosinophils Absolute Auto 400 /uL (0-450); Hematocrit 48.8 % (41-53); Lymphocytes Absolute Auto 2200 /uL (1100-4500); Lymphocytes Percent Auto 29.8 % (25-40); Mean Corpuscular HGB Conc 32.7 % (30-36); Mean Corpuscular Hemoglobin 30.5 PG (26-34); Mean Corpuscular Volume 93.1 fL (80-100); Monocytes Absolute Auto 900 /uL (0-900); Monocytes Percent Auto 11.7 % (3-14); Neutrophils Absolute Auto 3800 /uL (1500-7000); Neutrophils Percent Auto 52.3 % (50-75); Platelet Count 208 X10^3/uL (150-400); Red Blood Cell Count 5.24 X10^6/uL (4.5-5.9); Red Cell Distribution Width 12.6 % (11.6-14.8); White Blood Cell Count 7.3 X10^3/uL (4.5-11.0)
== END ==
PROVIDERS: PCP Family Medicine; Referring Provider Family Medicine; Visit Provider Family Medicine
DX: R31.0 Gross hematuria (principal)
CPT/HCPCS: 36415; 85025

== ENCOUNTER → 2021-06-20 08:41 | Outpatient (CLI) | payer MEDICARE, SELFPAY ==
[2021-06-20 10:53] LABS: Add Manual Diff / Slide Review NO; Basophils Absolute Auto 100 /uL (0-100); Basophils Percent Auto 0.7 % (0-2); Eosinophils Absolute Auto 100 /uL (0-450); Eosinophils Percent Auto 1.3 % (2-4); Hematocrit 48.9 % (41-53); Hemoglobin 16.5 g/dL (13.5-17.5); Lymphocytes Absolute Auto 1900 /uL (1100-4500); Lymphocytes Percent Auto 23.9 % (25-40); Mean Corpuscular HGB Conc 33.7 % (30-36); Mean Corpuscular Hemoglobin 31.2 PG (26-34); Mean Corpuscular Volume 92.4 fL (80-100); Monocytes Absolute Auto 700 /uL (0-900); Monocytes Percent Auto 9.3 % (3-14); Neutrophils Absolute Auto 5300 /uL (1500-7000); Neutrophils Percent Auto 64.8 % (50-75); Platelet Count 252 X10^3/uL (150-400); Red Cell Distribution Width 13.1 % (11.6-14.8); White Blood Cell Count 8.1 X10^3/uL (4.5-11.0)
[2021-06-20 11:30] LABS: Alanine Aminotransferase 91 IU/L (<50); Albumin 4.3 g/dL (3.5-5.0); Albumin Globulin Ratio 1.6 (1.0-2.8); Alkaline Phosphatase 73 U/L (38-126); Aspartate Aminotransferase 42 IU/L (17-59); BUN Creatinine Ratio 17.5 (6-22); Bilirubin Total 0.8 mg/dL (0.2-1.3); Blood Urea Nitrogen 22 mg/dL (9-20); Calcium 9.2 mg/dL (8.4-10.2); Carbon Dioxide 29 mmol/L (22-32); Chloride 104 mmol/L (98-107); Cholesterol 160 mg/dL (140-199); Estimated Glomerular Filt Rate 56.9 mL/min (>60); Globulin 2.7 g/dL (1.7-4.1); Glucose 131 mg/dL (80-110); HDL Cholesterol 44 mg/dL (40-60); HEMOLYSIS < 15 (0-50); LDL Cholesterol Calculated 100 mg/dL (<100); Potassium 4.6 mmol/L (3.4-5.1); Sodium 139 mmol/L (137-145); Triglycerides 79 mg/dL (35-150)
[2021-06-20 11:42] LABS: Vitamin D 25 Hydroxy (D3) 44.8 ng/mL (30.0-100.0)
[2021-06-20 11:59] LABS: Prostate Specific Antigen < 0.064 ng/mL (0.10-4.00)
== END ==
PROVIDERS: Family Provider Family Medicine; PCP Family Medicine; Referring Provider Family Medicine; Visit Provider Family Medicine
DX: E11.21 Type 2 diabetes mellitus with diabetic nephropathy (principal); E11.42 Type 2 diabetes mellitus with diabetic polyneuropathy; C61 Malignant neoplasm of prostate; E55.9 Vitamin D deficiency, unspecified; E78.00 Pure hypercholesterolemia, unspecified; I10 Essential (primary) hypertension
CPT/HCPCS: 36415; 80053; 80061; 82306; 83036; 84153; 85025

== ENCOUNTER → 2021-07-18 17:00 | Outpatient (CLI) | payer MEDICARE, SELFPAY ==
[2021-07-18 17:58] LABS: Appearance Urine UA CLEAR; Bilirubin Urine UA NEGATIVE (NEGATIVE); Color Urine UA YELLOW; Glucose Urine UA NEGATIVE (Negative); Ketones Urine UA NEGATIVE (NEGATIVE); Leukocyte Esterase Urine UA NEGATIVE (NEGATIVE); Nitrite Urine UA NEGATIVE (Negative); Occult Blood Urine UA NEGATIVE (Negative); Protein Urine UA NEGATIVE (Negative); Urobilinogen Urine UA 0.2 E.U./dL (0.2); pH Urine UA 5.5 (4.5-8.0)
[2021-07-18 18:08] LABS: Bacteria Urine None Seen; Culture Indicated Urine Cult Not Indicated; RBC Urine 0-1/HPF (0-5/HPF); WBC Urine 0-1/HPF (0-5/HPF)
== END ==
PROVIDERS: Family Provider Family Medicine; PCP Family Medicine; Referring Provider Specialist; Visit Provider Specialist
DX: R30.0 Dysuria (principal)
CPT/HCPCS: 81001

== ENCOUNTER 2021-08-06 17:17 | Emergency (ER) | payer MEDICARE, SELFPAY ==
[2021-08-06 17:25] VITALS: BP 182/86; PULSE 91; RESP 18; TEMP 37.3; O2SAT 98; BMI 37.1
--- NOTE | 2021-08-06 18:05 | ED.GENADULT ---
HPI - General Adult <Taya Sanders MD - Last Filed: 08/22/21 00:30> General Chief complaint: Urogenital-Male Stated complaint: Urinary Bleed Time Seen by Provider: 08/06/21 17:46 Mode of arrival: Ambulatory History of Present Illness HPI narrative: 70-year-old gentleman with a history of a diabetes, hypertension, hyperlipidemia who was diagnosed with prostate cancer in 2004 with prostatectomy and then found have an increasing PSA in 2007 with radiation completed. 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 This was completed around January of 2021 and he has had only a single episode of spotting since then until today. States on July 14 he had some minor bright red blood from the tip of his penis that did not continue. This morning he his were sexually active (he does note that he has retrograde ejaculation) approximately 4 hours later had minor dysuria sensation and then voided a number of blood clots. He is continuing to have hematuria with blood clots at this time. He is not complaining of significant pain, flank pain, fevers or anything that would suggest infectious etiology. Related Data Home Medications Medication Instructions Recorded Confirmed aspirin 81 mg tablet,delayed 81 mg PO DAILY 02/04/20 06/29/21 release Previous Rx's Medication Instructions Recorded insulin glargine 100 unit/mL (3 70 unit (0.7 mL) SUBCUT DAILY #60 06/30/20 mL) subcutaneous pen (Lantus ml Solostar U-100 Insulin) Accu check test strips #100 ea 10/20/20 Ultrafine TM-short Pen Needle #100 ea 10/20/20 [place] Fit [id number] insulin aspart U-100 100 unit/mL 15 unit (0.15 mL) SUBCUT TID #15 ml 10/28/20 (3 mL) subcutaneous pen (Novolog Flexpen U-100 Insulin aspart) simvastatin 20 mg tablet See Rx Instructions .ROUTE 01/03/21 .COMPLEX #90 tab cyclobenzaprine 10 mg tablet 10 mg PO TID PRN #30 tab 06/05/21 losartan 50 mg tablet See Rx Instructions .ROUTE 06/30/21 .COMPLEX #90 tab bupropion HCl 300 mg 24 hr tablet, See Rx Instructions .ROUTE 08/02/21 extended release .COMPLEX #90 tab Allergies Allergy/AdvReac Type Severity Reaction Status Date / Time tree and shrub pollen Allergy Mild Verified 08/06/21 17:33 Review of Systems <Taya Sanders MD - Last Filed: 08/22/21 00:30> Review of Systems Narrative: Remainder of complete review of systems is otherwise unremarkable except for that included in the HPI. 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 Colon polyps (~2015) Compulsive overeating Constipation (~2019) Diabetic nephropathy Diverticular disease (~2016) Elevated ALT measurement Erectile dysfunction Fractures Hearing loss (~2014) Hemorrhoid (~1999) History of nephrolithiasis (~2010) History of urinary incontinence (~2004) HTN (hypertension) Hypercholesterolemia HOWARD (obstructive sleep apnea) Peripheral neuropathy (~2015) Prostate cancer (~2002) Radiation cystitis Skin cancer (~2016) Skin tags, multiple acquired Sleep apnea (~2004) Type 2 diabetes mellitus with peripheral neuropathy Upper extremity somatic dysfunction Vitamin D deficiency Wrist pain (~2019) Surgical History Anesthesia H/O cystoscopy H/O prostate biopsy H/O prostatectomy H/O transurethral resection of prostate (~11/2004) H/O vasectomy History of surgery on right wrist (~2000) Family History Father Colon cancer Loud snoring Insomnia Obesity Mother Cancer Family/Other Alcohol abuse Substance abuse Social History marital status: Smoking Status: Never smoker alcohol intake: current Smoking Status: Never smoker alcohol intake frequency: holidays/special occasions only Substance Use Type: does not use Exam <Taya Sanders MD - Last Filed: 08/22/21 00:30> Initial Vital Signs Initial Vital Signs: Vital Signs Temperature 99.1 F 08/06/21 17:25 Pulse Rate 91 H 08/06/21 17:25 Respiratory Rate 18 08/06/21 17:25 Blood Pressure 182/86 H 08/06/21 17:25 Pulse Oximetry 98 08/06/21 17:25 General: Alert appropriate in no acute distress Respiratory: Able to speak in full sentences, no obvious respiratory distress Skin: No obvious rashes, warm and dry Abdomen: No significant abdominal tenderness, no flank pain Neurologic: Grossly intact no obvious asymmetries or abnormalities Psych: appropriate insight and affect, cooperative <Esa Medel DO - Last Filed: 08/06/21 19:28> Initial Vital Signs Initial Vital Signs: Vital Signs Temperature 99.1 F 08/06/21 17:25 Pulse Rate 91 H 08/06/21 17:25 Respiratory Rate 18 08/06/21 17:25 Blood Pressure 182/86 H 08/06/21 17:25 Pulse Oximetry 98 08/06/21 17:25 Course <Taya Sanders MD - Last Filed: 08/22/21 00:30> Orders Ordered: Discontinued Medications Lidocaine HCl (Lidocaine 2% (Glydo) 6 Ml Gel) 6 ml TOP NOW ONE Stop: 08/06/21 18:09 Last Admin: 08/06/21 18:15 Dose: 6 ml Documented by: ALEJANDRA Vital Signs Vital signs: Vital Signs - 8 hr 08/06/21 17:25 Temperature 99.1 F Pulse Rate 91 H Respiratory Rate 18 Blood Pressure 182/86 H Pulse Oximetry 98 <Esa Medel DO - Last Filed: 08/06/21 19:28> Orders Ordered: Discontinued Medications Lidocaine HCl (Lidocaine 2% (Glydo) 6 Ml Gel) 6 ml TOP NOW ONE Stop: 08/06/21 18:09 Last Admin: 08/06/21 18:15 Dose: 6 ml Documented by: RLCBI Vital Signs Vital signs: Vital Signs - 8 hr 08/06/21 17:25 Temperature 99.1 F Pulse Rate 91 H Respiratory Rate 18 Blood Pressure 182/86 H Pulse Oximetry 98 Medical Decision Making <Taya Sanders MD - Last Filed: 08/22/21 00:30> Lab Data Labs: Lab Results 08/06/21 Range/Units 17:50 Urine RBC 0-1/hpf (0-5/HPF) Urine WBC 0-1/hpf (0-5/HPF) Urine Bacteria Occasional (0-1) (None) Ur Culture Indicated? Cult not indicated Urine Dip Bedside Urine Glucose Negative Bedside Urine Bilirubin - Negative Bedside Urine Ketone - Negative Urine Specific [place] 1.005 Bedside Urine Occult Blood +++ Bedside Urine pH 6.0 Bedside Urine Protein - Negative Bedside Urine Urobilinogen - Negative Bedside Urine Nitrite - Negative Bedside Urine Leukocytes - Negative Esterase Point of care testing: Urine Dip Bedside Urine Glucose Negative Bedside Urine Bilirubin - Negative Bedside Urine Ketone - Negative Urine Specific [place] 1.005 Bedside Urine Occult Blood +++ Bedside Urine pH 6.0 Bedside Urine Protein - Negative Bedside Urine Urobilinogen - Negative Bedside Urine Nitrite - Negative Bedside Urine Leukocytes - Negative Esterase <Esa Medel, DO - Last Filed: 08/06/21 19:28> Lab Data Labs: Lab Results 08/06/21 Range/Units 17:50 Urine RBC 0-1/hpf (0-5/HPF) Urine WBC 0-1/hpf (0-5/HPF) Urine Bacteria Occasional (0-1) (None) Ur Culture Indicated? Cult not indicated Urine Dip Bedside Urine Glucose Negative Bedside Urine Bilirubin - Negative Bedside Urine Ketone - Negative Urine Specific [place] 1.005 Bedside Urine Occult Blood +++ Bedside Urine pH 6.0 Bedside Urine Protein - Negative Bedside Urine Urobilinogen - Negative Bedside Urine Nitrite - Negative Bedside Urine Leukocytes - Negative Esterase Point of care testing: Urine Dip Bedside Urine Glucose Negative Bedside Urine Bilirubin - Negative Bedside Urine Ketone - Negative Urine Specific [place] 1.005 Bedside Urine Occult Blood +++ Bedside Urine pH 6.0 Bedside Urine Protein - Negative Bedside Urine Urobilinogen - Negative Bedside Urine Nitrite - Negative Bedside Urine Leukocytes - Negative Esterase [facility] Narrative Medical decision making narrative: Dr Medel: Received turned over. Review patient's history physical exam. Introduced myself to the patient. A 3 week Karimi catheter was placed. He was irrigated with fluid. He is now draining clear urine. Plan abuse to discharge home with Karimi catheter in place and have him contact his urologist for follow-up. He was given strict return precautions. He expressed understanding and agreement. Discharge Plan Departure Patient Disposition: Home Clinical Impression: Hematuria Instructions: How to Care for Your Karimi Catheter -- Male, DI for Hematuria Activity Restrictions/Additional Instructions: Continue to take all of your medications as directed. Be sure to stay hydrated like we discussed an tomorrow contact your urologist for a follow-up. Return to the emergency department for any new or worsening symptoms Prescriptions: No Action Lantus Solostar U-100 Insulin 100 unit/mL (3 mL) insulin pen 70 unit SUBCUT DAILY Qty: 60 3RF (DME) Accu check test strips See Rx Instructions .Route .MEDSUPPLY Qty: 100 11RF Rx Instructions: Use to test blood sugars twice daily (DME) Ultrafine TM-short Pen Needle [place] Fit [id number] See Rx Instructions .Route .MEDSUPPLY Qty: 100 11RF Rx Instructions: Use to inject insulin insulin aspart U-100 [Novolog Flexpen U-100 Insulin] 100 unit/mL (3 mL) insulin pen 15 unit SUBCUT TID Qty: 15 10RF simvastatin 20 mg tablet See Rx Instructions .ROUTE .COMPLEX Qty: 90 2RF Dose Instruction: TAKE 1 TABLET BY MOUTH DAILY Rx Instructions: TAKE 1 TABLET BY MOUTH DAILY losartan 50 mg tablet See Rx Instructions .ROUTE .COMPLEX Qty: 90 3RF Dose Instruction: TAKE 1 TABLET BY MOUTH DAILY Rx Instructions: TAKE 1 TABLET BY MOUTH DAILY bupropion HCl 300 mg tablet extended release 24 hr See Rx Instructions .ROUTE .COMPLEX Qty: 90 0RF Dose Instruction: TAKE 1 TABLET BY MOUTH EVERY MORNING Rx Instructions: TAKE 1 TABLET BY MOUTH EVERY MORNING cyclobenzaprine 10 mg tablet 10 mg PO TID PRN (Reason: muscle spasm) Qty: 30 0RF aspirin 81 mg tablet,delayed release (DR/EC) 81 mg PO DAILY 0RF Referrals: Diego Rivera DO [Primary Care Provider] -
[2021-08-06 18:10] LABS: Bacteria Urine Occasional (0-1); Culture Indicated Urine Cult Not Indicated; RBC Urine 0-1/HPF (0-5/HPF); WBC Urine 0-1/HPF (0-5/HPF)
[2021-08-06] MEDS: LIDOCAINE 2% (GLYDO) 6 ML GEL TOP (18:15)
[2021-08-06 19:31] VITALS: BP 143/84; PULSE 59; RESP 16; O2SAT 99
== END 2021-08-06 19:56 | disposition home or self-care (01) ==
PROVIDERS: Emergency Medicine; Emergency Provider Emergency Medicine; Family Provider Family Medicine; PCP Family Medicine
DX: R31.9 Hematuria, unspecified (principal)
CPT/HCPCS: 51702; 81003; 81015; 99283

== ENCOUNTER 2021-08-29 10:30 | Outpatient (RCR) | payer MEDICARE, SELFPAY ==
--- NOTE | 2021-06-21 17:56 | PT.OIE ---
Current Diagnoses Pain in left shoulder (06/21/21) Stiffness of left shoulder, not elsewhere classified (06/21/21) Other injury of muscle(s) and tendon(s) of the rotator cuff of left shoulder, subsequent encounter (06/21/21) Strain of other muscles, fascia and tendons at shoulder and upper arm level, left arm, subsequent encounter (06/21/21) Past Medical History (Last Updated 06/14/21 @ 11:30 by Diego Rivera DO) Acute pain of left shoulder Allergies (~1977) Anxiety and depression Benign familial tremor (~2004) Chicken pox (~1968) Chronic nasal congestion Chronic throat clearing Colon polyps (~2015) Compulsive overeating Constipation (~2019) Depression Diabetes (~2011) Diabetic nephropathy Diverticular disease (~2016) Erectile dysfunction Excessive cerumen in right ear canal Fractures Gross hematuria (~2017) H/O cystoscopy H/O prostate biopsy H/O prostatectomy H/O transurethral resection of prostate (~11/2004) H/O vasectomy Hearing loss (~2014) Hemorrhoid (~1999) History of malignant neoplasm of prostate History of nephrolithiasis (~2010) History of surgery on right wrist (~2000) History of urinary incontinence (~2004) HTN (hypertension) Hypercholesterolemia Nephrolithiasis HOWARD (obstructive sleep apnea) Peripheral neuropathy (~2015) Prostate cancer (~2002) Prostate cancer Radiation cystitis Skin cancer (~2016) Skin tag (~2016) Skin tags, multiple acquired Sleep apnea (~2004) Type 2 diabetes mellitus with peripheral neuropathy Upper extremity somatic dysfunction Vitamin D deficiency Wrist pain (~2019) Past Surgical History (Last Reviewed 03/23/21 @ 12:59 by Aly Bull MD) Anesthesia H/O cystoscopy H/O prostate biopsy H/O prostatectomy H/O transurethral resection of prostate (~11/2004) H/O vasectomy History of surgery on right wrist (~2000) Visit Care Team Role Provider Type Diego Rivera DO Attending Provider Physician Family Provider Primary Care Provider Referring Provider Specialty: Family Practice Address: [address] [place] [address], [id number] Email: Physical Therapy Initial Evaluation PT-OP-A Visit Information Start: 06/21/21 10:56 Freq: Status: Active Protocol: Document 06/21/21 09:45 DCW (Rec: 06/21/21 11:08 [facility] [id number]) Out-Patient Physical Therapy Visit Information Visit Information Visit Type Initial Evaluation Visit Start Time 09:45 Visit Stop Time 10:30 Total Visit Minutes 45 Visit Number 1 Number of ENTERPRISE INTEGRATION DEVELOPER Visits 0 Evaluation Information Evaluation Date 06/21/21 PT-OP-B Current Condition Start: 06/21/21 10:56 Freq: Status: Active Protocol: Document 06/21/21 09:45 DCW (Rec: 06/21/21 11:08 [facility] [id number]) Current Condition History of Current Condition Onset Date ~2 month history Current Complaints Left shoulder pain/stiffness History of Current Condition Pt is a 70 year old male presenting with a two month history of left shoulder pain. Pt notes he had some aching in the shoulder for a few month previous, however starting around the new year, he began having fairly constant, terrible pain. Notes pain was really bad for about five weeks, and just lived with it, hoping it would go away. Pt eventually went to see his PCP, received some dry needling, which he notes increased his discomfort. Pt then received a lidocaine injection, which helped almost immediately. Pt reports this happened one week ago, and his pain as decreased from an 8-9 /10 to a 3/10. Pt is no longer having trouble sleeping, and is able to do most of his normal activities. Pt is unsure of his initial injury, reports the only thing he can think of is that he has a nervous tic that involves reaching up with his left hand to scratch his head, notes he may do this for hours while driving, and thinks that may have resulted in some inflammation or led to the original soreness. Pt's main pain currently is when lifting his arm into abduction , but only with his elbow flexed and his hand staying down, resulting in internal rotation in addition to the abduction. Also notes that his shoulder feels like it is catching, and gets stuck sometimes when he is performing smaller movements. Treatment Goals Patient/Caregiver Goals I just want it to be pain- free. PT-OP-C Subjective Start: 06/21/21 10:56 Freq: Status: Active Protocol: Document 06/21/21 09:45 DCW (Rec: 06/21/21 11:19 [facility] [id number]) OP-PT Subjective Patient Comments Patient Comments Since that lidocaine injection , theres been a night and day difference. I did want to let you know how bad it was, though, so I filled out all my questionnaires like it was before my injection. Patient Reported Progress Improving Patient Questionnaires Quick Dash- Upper Extremity Quick Dash UE Score 29.55% Quick Dash UE Impairment 20 to 39% Impaired (Score 20- 39) OP-PT Pain Assessment Pain Assessment Grid Paper Pain Assessment Grid Completed Yes Location Left Anterior Shoulder Intensity 9 Scale Used Numeric (0 - 10) Comments Pain Comments Pain was 8/10-9/10 prior to injection, now 3/10 PT-OP-F Manual Assessment Start: 06/21/21 10:56 Freq: Status: Active Protocol: Document 06/21/21 09:45 DCW (Rec: 06/21/21 11:19 [facility] [id number]) Manual Assessments Soft Tissue Assessment Soft Tissue Mobility Assessment Good tone and soft tissue mobility, no tenderness to palpation at supraspinatus, infraspinatus, deltoid, or subscap Joint Mobility Assessment Joint Mobility Assessment Tenderness to palpation 3/4: Wincing and withdraw at left anterior GH joint line PT-OP-K Range of Motion Start: 06/21/21 10:56 Freq: Status: Active Protocol: Document 06/21/21 09:45 DCW (Rec: 06/21/21 11:19 [facility] [id number]) Shoulder Goniometric Range of Motion Shoulder Right Active Shoulder ROM WFL Yes Testing Position Sitting Flexion 180 Abduction 180 External Rotation at 0 degrees Abduction 40 Internal Rotation Behind Back (text) T8 Left Active Shoulder ROM WFL No Testing Position Sitting Flexion 135 Abduction 180 External Rotation at 0 degrees Abduction 40 Internal Rotation Behind Back (text) T8 Shoulder ROM Limitations Shoulder ROM Limitations Pain PT-OP-L Special Tests Start: 06/21/21 10:56 Freq: Status: Active Protocol: Document 06/21/21 09:45 DCW (Rec: 06/21/21 11:19 [facility] [id number]) Special Tests Shoulder Special Tests Yergason's Biceps Test Results Negative Speed's Biceps Test Results Negative Passive ER Rotator Cuff Test Results Negative Lift-Off Rotator Cuff Test Results Negative Adam Naresh Impingement Test Results Positive Left Grind Labrum Test Results Positive Left Empty Can Test Results Positive Left Drop Arm Rotator Cuff Test Results Negative Clunk Test Test Results Positive Left Belly Press Test Results Negative Apprehension Test Test Results Positive Left Anterior Draw Test Results Negative AC Joint Compression Test Results Negative PT-OP-M Strength Start: 06/21/21 10:56 Freq: Status: Active Protocol: Document 06/21/21 09:45 DCW (Rec: 06/21/21 11:19 [facility] [id number]) Shoulder Strength Shoulder Manual Muscle Testing Right Flexion 4+ Good+ Abduction (C5) 5 Normal External Rotation 5 Normal Internal Rotation 5 Normal Left Flexion 4 Good Abduction (C5) 4+ Good+ External Rotation 4 Good Internal Rotation 5 Normal Comments Pain with resisted flexion and external rotation PT-OP-T Assessment and Plan Start: 06/21/21 10:56 Freq: Status: Active Protocol: Document 06/21/21 09:45 DCW (Rec: 06/21/21 17:55 [facility] [id number]) Physical Therapy Assessment Rehab Potential Rehabilitation Potential Good Evaluation Complexity Number of Personal Factors/Comorbidities 1-2 Number of Body Systems Impaired 1-2 Clinical Presentation at Evaluation Stable Impairments Impairments Activity Tolerance,Functional Activities,Functional Mobility ,Pain,ROM,Soft Tissue Mobility ,Strength,Tone Goals Two Impairment Left shoulder AROM abduction restricted to 135? Care Home Goal (LTG) Improve AROM of left shoulder to 180? abduction to allow for improved ability to reach for objects on his closet shelf. LTG Duration 08/21/21 One Impairment Pt does not have an appropriate home exercise program Short Term Goal (STG) Pt to be independent and compliant with an appropriate HEP STG Duration 07/22/21 Assessment Summary Assessment Pt presents with signs and symptoms consistent with likely left deltoid strain, shoulder impingement, and potential labrum strain. At this time, his original injury appeared to have been the deltoid strain, however his recent lidocaine injection appears to have helped tremendously with his pain. Pt does still have significant point-specific pain with deep palpation directly on his anterior GH joint line, as well as positive impingement and labrum tests. Pt does demonstrate full ROM, so at this time it is more likely to be more of a sprain/strain than a full tear. Pt responded very well with UE traction, immediately eliminated most of his pain, and afterward he was able to show improvement with pain-free ROM. Pt will likely benefit from skilled therapy focusing on STM, joint mobilization, gentle strengthening, and ROM/ flexibility. If pt does not make noticeable progress, pt may require advanced imaging in the future. Physical Therapy Plan Frequency and Duration Frequency of Treatment 2x/Week Duration of Treatment Two months Plan of Care Start Date 06/21/21 Plan of Care End Date 08/21/21 Therapeutic Interventions Therapeutic Interventions Home Exercise Program,Joint Mobilizations,Manual Therapy, Patient/Caregiver Education, Self-Care/Home Management,Soft Tissue Mobilization, Therapeutic Activities, Therapeutic Exercises Modalities Cold Pack/Ice Massage,Electric Stimulation,Hot Packs, Ultrasound Next Visit Focus/Plan Next Note Type Treatment Note Next Visit Plan STM, Joint mobilization, strengthening
--- NOTE | 2021-06-21 17:57 | PT.OPPOC ---
Physical, Occupational & Speech Therapy At [facility] Current Diagnoses Pain in left shoulder (06/21/21) Stiffness of left shoulder, not elsewhere classified (06/21/21) Other injury of muscle(s) and tendon(s) of the rotator cuff of left shoulder, subsequent encounter (06/21/21) Strain of other muscles, fascia and tendons at shoulder and upper arm level, left arm, subsequent encounter (06/21/21) Visit Care Team Role Provider Type Diego Rivera DO Attending Provider Physician Family Provider Primary Care Provider Referring Provider Specialty: Family Practice Address: [address] [place] [address], [facility] Email: Plan Of Care PT-OP-T Assessment and Plan Start: 06/21/21 10:56 Freq: Status: Active Protocol: Document 06/21/21 09:45 DCW (Rec: 06/21/21 17:55 [facility] [id number]) Physical Therapy Assessment Rehab Potential Rehabilitation Potential Good Evaluation Complexity Number of Personal Factors/Comorbidities 1-2 Number of Body Systems Impaired 1-2 Clinical Presentation at Evaluation Stable Impairments Impairments Activity Tolerance,Functional Activities,Functional Mobility ,Pain,ROM,Soft Tissue Mobility ,Strength,Tone Goals Two Impairment Left shoulder AROM abduction restricted to 135? Materials Supervisor Goal (LTG) Improve AROM of left shoulder to 180? abduction to allow for improved ability to reach for objects on his closet shelf. LTG Duration 08/21/21 One Impairment Pt does not have an appropriate home exercise program Short Term Goal (STG) Pt to be independent and compliant with an appropriate HEP STG Duration 07/22/21 Assessment Summary Assessment Pt presents with signs and symptoms consistent with likely left deltoid strain, shoulder impingement, and potential labrum strain. At this time, his original injury appeared to have been the deltoid strain, however his recent lidocaine injection appears to have helped tremendously with his pain. Pt does still have significant point-specific pain with deep palpation directly on his anterior GH joint line, as well as positive impingement and labrum tests. Pt does demonstrate full ROM, so at this time it is more likely to be more of a sprain/strain than a full tear. Pt responded very well with UE traction, immediately eliminated most of his pain, and afterward he was able to show improvement with pain-free ROM. Pt will likely benefit from skilled therapy focusing on STM, joint mobilization, gentle strengthening, and ROM/ flexibility. If pt does not make noticeable progress, pt may require advanced imaging in the future. Physical Therapy Plan Frequency and Duration Frequency of Treatment 2x/Week Duration of Treatment Two months Plan of Care Start Date 06/21/21 Plan of Care End Date 08/21/21 Therapeutic Interventions Therapeutic Interventions Home Exercise Program,Joint Mobilizations,Manual Therapy, Patient/Caregiver Education, Self-Care/Home Management,Soft Tissue Mobilization, Therapeutic Activities, Therapeutic Exercises Modalities Cold Pack/Ice Massage,Electric Stimulation,Hot Packs, Ultrasound Next Visit Focus/Plan Next Note Type Treatment Note Next Visit Plan STM, Joint mobilization, strengthening Plan of Care Dates Plan of Care Start Date 06/21/21 Plan of Care End Date 08/21/21 Electronically Signed by: Silverio Masters, PT 06/21/21 1135 Please Sign and Return: I have reviewed this Plan of Care and certify that the skilled therapy services above are required to meet the patient?s needs. Physician Signature Date Printed Name and Credentials Clinical Instructor Signature Printed Name and Credentials
--- NOTE | 2021-06-26 10:31 | PT.OTN ---
Current Diagnoses Pain in left shoulder (06/26/21) Stiffness of left shoulder, not elsewhere classified (06/26/21) Other injury of muscle(s) and tendon(s) of the rotator cuff of left shoulder, subsequent encounter (06/26/21) Strain of other muscles, fascia and tendons at shoulder and upper arm level, left arm, subsequent encounter (06/26/21) Physical Therapy Treatment Note PT-OP-A Visit Information Start: 06/21/21 10:56 Freq: Status: Active Protocol: Document 06/26/21 09:45 DCW (Rec: 06/26/21 10:31 [facility] [id number]) Out-Patient Physical Therapy Visit Information Visit Information Visit Type Treatment Note Visit Start Time 09:45 Visit Stop Time 10:30 Total Visit Minutes 45 Visit Number 2 Number of ASSISTANT CLINICAL NURSE MANAGER Visits 0 Evaluation Information Evaluation Date 06/21/21 PT-OP-B Current Condition Start: 06/21/21 10:56 Freq: Status: Active Protocol: Document 06/21/21 09:45 DCW (Rec: 06/21/21 11:08 [facility] [id number]) Current Condition History of Current Condition Onset Date ~2 month history Current Complaints Left shoulder pain/stiffness History of Current Condition Pt is a 70 year old male presenting with a two month history of left shoulder pain. Pt notes he had some aching in the shoulder for a few month previous, however starting around the new year, he began having fairly constant, terrible pain. Notes pain was really bad for about five weeks, and just lived with it, hoping it would go away. Pt eventually went to see his PCP, received some dry needling, which he notes increased his discomfort. Pt then received a lidocane injection, which helped almost immediately. Pt reports this happened one week ago, and his pain as decreased from an 8-9 /10 to a 3/10. Pt is no longer having trouble sleeping, and is able to do most of his normal activities. Pt is unsure of his initial injury, reports the only thing he can think of is that he has a nervous tic that involves reaching up with his left hand to scratch his head, notes he may do this for hours while driving, and thinks that may have resulted in some inflammation or led to the original soreness. Pt's main pain cuyrrently is when lifting his arm into abduction , but only with his elbow flexed and his hand staying down, resulting in internal rotation in addition to the abduction. Also notes that his shoulder feels like it is catching, and gets stuck sometimes when he is performing smaller movements. Treatment Goals Patient/Caregiver Goals I just want it to be pain- free. PT-OP-C Subjective Start: 06/21/21 10:56 Freq: Status: Active Protocol: Document 06/26/21 09:45 DCW (Rec: 06/26/21 10:31 [facility] [id number]) OP-PT Subjective Patient Comments Patient Comments Pt reports his shoulder was maybe a little worse when doing things like laying in bed trying to pull his sheets up, but when I wasn't doing anything, it felt pretty good. Notes still a significant improvement since the Lidocaine injection. PT-OP-F Manual Assessment Start: 06/21/21 10:56 Freq: Status: Active Protocol: Document 06/21/21 09:45 DCW (Rec: 06/21/21 11:19 [facility] [id number]) Manual Assessments Soft Tissue Assessment Soft Tissue Mobility Assessment Good tone and soft tissue mobility, no tenderness to palpation at supraspinatus, infraspinatus, deltoid, or subscap Joint Mobility Assessment Joint Mobility Assessment Tenderness to palpation 3/4: Wincing and withdraw at left anterior GH joint line PT-OP-K Range of Motion Start: 06/21/21 10:56 Freq: Status: Active Protocol: Document 06/21/21 09:45 DCW (Rec: 06/21/21 11:19 [facility] [id number]) Shoulder Goniometric Range of Motion Shoulder Right Active Shoulder ROM WFL Yes Testing Position Sitting Flexion 180 Abduction 180 External Rotation at 0 degrees Abduction 40 Internal Rotation Behind Back (text) T8 Left Active Shoulder ROM WFL No Testing Position Sitting Flexion 135 Abduction 180 External Rotation at 0 degrees Abduction 40 Internal Rotation Behind Back (text) T8 Shoulder ROM Limitations Shoulder ROM Limitations Pain PT-OP-L Special Tests Start: 06/21/21 10:56 Freq: Status: Active Protocol: Document 06/21/21 09:45 DCW (Rec: 06/21/21 11:19 [facility] [id number]) Special Tests Shoulder Special Tests Yergason's Biceps Test Results Negative Speed's Biceps Test Results Negative Passive ER Rotator Cuff Test Results Negative Lift-Off Rotator Cuff Test Results Negative Adam Naresh Impingement Test Results Positive Left Grind Labrum Test Results Positive Left Empty Can Test Results Positive Left Drop Arm Rotator Cuff Test Results Negative Clunk Test Test Results Positive Left Belly Press Test Results Negative Apprehension Test Test Results Positive Left Anterior Draw Test Results Negative AC Joint Compression Test Results Negative PT-OP-M Strength Start: 06/21/21 10:56 Freq: Status: Active Protocol: Document 06/21/21 09:45 DCW (Rec: 06/21/21 11:19 DC[facility] [id number]) Shoulder Strength Shoulder Manual Muscle Testing Right Flexion 4+ Good+ Abduction (C5) 5 Normal External Rotation 5 Normal Internal Rotation 5 Normal Left Flexion 4 Good Abduction (C5) 4+ Good+ External Rotation 4 Good Internal Rotation 5 Normal Comments Pain with resisted flexion and external rotation PT-OP-Q Treatments Start: 06/21/21 10:56 Freq: Status: Active Protocol: Document 06/26/21 09:45 DCW (Rec: 06/26/21 10:31 [facility] [id number]) Cardio Equipment Upper Body Ergometer (UBE) Duration (Minutes) 4 RPM 60 Seat Position 12 Height 2.5 Therapeutic Exercises Supine Exercises 3 Supine Exercise Name Shoulder flexion /c PVC Side bilateral Resistance 5# 2 Supine Exercise Name Flys Side bilateral Resistance 2# 1 Supine Exercise Name Serratus punch Side bilateral Resistance 2# Manual Therapy Treatment Soft Tissue Mobilization 1 Body Location L Parascapulars Mobilization Type Strumming,Sustained Pressure Intensity/Depth Moderate Body Position Supine Joint Mobilizations 1 Joint L GH Direction Inferior Grade III Body Position Supine Manual Traction Upper Extremity Details L GH Long-axis distraction Body Position Supine PT-OP-T Assessment and Plan Start: 06/21/21 10:56 Freq: Status: Active Protocol: Document 06/26/21 09:45 DCW (Rec: 06/26/21 10:31 [facility] [id number]) Physical Therapy Assessment Impairments Impairments Activity Tolerance,Functional Activities,Functional Mobility ,Pain,ROM,Soft Tissue Mobility ,Strength,Tone Goals Two Impairment Left shoulder AROM abduction restricted to 135? Longterm Goal (LTG) Improve AROM of left shoulder to 180? abduction to allow for improved ability to reach for objects on his closet shelf. LTG Duration 08/21/21 One Impairment Pt does not have an appropriate home exercise program Short Term Goal (STG) Pt to be independent and compliant with an appropriate HEP STG Duration 07/22/21 Assessment Summary Assessment Pt noted significant improvement after STM and joint distraction, felt much better with ROM after his session. Physical Therapy Plan Frequency and Duration Frequency of Treatment 2x/Week Duration of Treatment Two months Plan of Care Start Date 06/21/21 Plan of Care End Date 08/21/21 Therapeutic Interventions Therapeutic Interventions Home Exercise Program,Joint Mobilizations,Manual Therapy, Patient/Caregiver Education, Self-Care/Home Management,Soft Tissue Mobilization, Therapeutic Activities, Therapeutic Exercises Modalities Cold Pack/Ice Massage,Electric Stimulation,Hot Packs, Ultrasound Next Visit Focus/Plan Next Note Type Treatment Note Next Visit Plan STM, Joint mobilization, strengthening
--- NOTE | 2021-06-28 10:28 | PT.OTN ---
Current Diagnoses Pain in left shoulder (06/28/21) Stiffness of left shoulder, not elsewhere classified (06/28/21) Other injury of muscle(s) and tendon(s) of the rotator cuff of left shoulder, subsequent encounter (06/28/21) Strain of other muscles, fascia and tendons at shoulder and upper arm level, left arm, subsequent encounter (06/28/21) Physical Therapy Treatment Note PT-OP-A Visit Information Start: 06/21/21 10:56 Freq: Status: Active Protocol: Document 06/28/21 09:47 DCW (Rec: 06/28/21 10:28 DCW [id number]) Out-Patient Physical Therapy Visit Information Visit Information Visit Type Treatment Note Visit Start Time 09:47 Visit Stop Time 10:30 Total Visit Minutes 43 Visit Number 3 Number of [employer] PILOT Visits 0 Evaluation Information Evaluation Date 06/21/21 PT-OP-B Current Condition Start: 06/21/21 10:56 Freq: Status: Active Protocol: Document 06/21/21 09:45 DCW (Rec: 06/21/21 11:08 DCW [id number]) Current Condition History of Current Condition Onset Date ~2 month history Current Complaints Left shoulder pain/stiffness History of Current Condition Pt is a 70 year old male presenting with a two month history of left shoulder pain. Pt notes he had some aching in the shoulder for a few month previous, however starting around the new year, he began having fairly constant, terrible pain. Notes pain was really bad for about five weeks, and just lived with it, hoping it would go away. Pt eventually went to see his PCP, received some dry needling, which he notes increased his discomfort. Pt then received a lidocane injection, which helped almost immediately. Pt reports this happened one week ago, and his pain as decreased from an 8-9 /10 to a 3/10. Pt is no longer having trouble sleeping, and is able to do most of his normal activities. Pt is unsure of his initial injury, reports the only thing he can think of is that he has a nervous tic that involves reaching up with his left hand to scratch his head, notes he may do this for hours while driving, and thinks that may have resulted in some inflammation or led to the original soreness. Pt's main pain cuyrrently is when lifting his arm into abduction , but only with his elbow flexed and his hand staying down, resulting in internal rotation in addition to the abduction. Also notes that his shoulder feels like it is catching, and gets stuck sometimes when he is performing smaller movements. Treatment Goals Patient/Caregiver Goals I just want it to be pain- free. PT-OP-C Subjective Start: 06/21/21 10:56 Freq: Status: Active Protocol: Document 06/28/21 09:47 DCW (Rec: 06/28/21 10:28 DCW [id number]) OP-PT Subjective Patient Comments Patient Comments Pt reports his shoulder was a little worse yesterday, he is a little frustrated, notes he is unsure if he just moved a little worng and caused pain, or if his Lidocaine is starting to wear off. PT-OP-F Manual Assessment Start: 06/21/21 10:56 Freq: Status: Active Protocol: Document 06/21/21 09:45 DCW (Rec: 06/21/21 11:19 DCW [id number]) Manual Assessments Soft Tissue Assessment Soft Tissue Mobility Assessment Good tone and soft tissue mobility, no tenderness to palpation at supraspinatus, infraspinatus, deltoid, or subscap Joint Mobility Assessment Joint Mobility Assessment Tenderness to palpation 3/4: Wincing and withdraw at left anterior GH joint line PT-OP-K Range of Motion Start: 06/21/21 10:56 Freq: Status: Active Protocol: Document 06/21/21 09:45 DCW (Rec: 06/21/21 11:19 DCW [id number]) Shoulder Goniometric Range of Motion Shoulder Right Active Shoulder ROM WFL Yes Testing Position Sitting Flexion 180 Abduction 180 External Rotation at 0 degrees Abduction 40 Internal Rotation Behind Back (text) T8 Left Active Shoulder ROM WFL No Testing Position Sitting Flexion 135 Abduction 180 External Rotation at 0 degrees Abduction 40 Internal Rotation Behind Back (text) T8 Shoulder ROM Limitations Shoulder ROM Limitations Pain PT-OP-L Special Tests Start: 06/21/21 10:56 Freq: Status: Active Protocol: Document 06/21/21 09:45 DCW (Rec: 06/21/21 11:19 DCW [id number]) Special Tests Shoulder Special Tests Yergason's Biceps Test Results Negative Speed's Biceps Test Results Negative Passive ER Rotator Cuff Test Results Negative Lift-Off Rotator Cuff Test Results Negative Adam Naresh Impingement Test Results Positive Left Grind Labrum Test Results Positive Left Empty Can Test Results Positive Left Drop Arm Rotator Cuff Test Results Negative Clunk Test Test Results Positive Left Belly Press Test Results Negative Apprehension Test Test Results Positive Left Anterior Draw Test Results Negative AC Joint Compression Test Results Negative PT-OP-M Strength Start: 06/21/21 10:56 Freq: Status: Active Protocol: Document 06/21/21 09:45 DCW (Rec: 06/21/21 11:19 DCW [id number]) Shoulder Strength Shoulder Manual Muscle Testing Right Flexion 4+ Good+ Abduction (C5) 5 Normal External Rotation 5 Normal Internal Rotation 5 Normal Left Flexion 4 Good Abduction (C5) 4+ Good+ External Rotation 4 Good Internal Rotation 5 Normal Comments Pain with resisted flexion and external rotation PT-OP-Q Treatments Start: 06/21/21 10:56 Freq: Status: Active Protocol: Document 06/28/21 09:47 DCW (Rec: 06/28/21 10:28 DCW [id number]) Manual Therapy Treatment Soft Tissue Mobilization 1 Body Location L Parascapulars Mobilization Type Strumming,Sustained Pressure Intensity/Depth Moderate Body Position Supine Joint Mobilizations 1 Joint L GH Direction Inferior Grade III Body Position Supine Manual Traction Upper Extremity Details L GH Long-axis distraction Body Position Supine Neuro Re-Education Treatment Other Activities 1 Details L Scapular PNF Comments Side-lying PT-OP-T Assessment and Plan Start: 06/21/21 10:56 Freq: Status: Active Protocol: Document 06/28/21 09:47 DCW (Rec: 06/28/21 10:28 DC [id number]) Physical Therapy Assessment Impairments Impairments Activity Tolerance,Functional Activities,Functional Mobility ,Pain,ROM,Soft Tissue Mobility ,Strength,Tone Goals Two Impairment Left shoulder AROM abduction restricted to 135? Thread Marker Goal (LTG) Improve AROM of left shoulder to 180? abduction to allow for improved ability to reach for objects on his closet shelf. LTG Duration 08/21/21 One Impairment Pt does not have an appropriate home exercise program Short Term Goal (STG) Pt to be independent and compliant with an appropriate HEP STG Duration 07/22/21 Assessment Summary Assessment Focused more on manual today after his worsening of symptoms yesterday, tolerated treatment very well, once again felt better leaving clinic today. Physical Therapy Plan Frequency and Duration Frequency of Treatment 2x/Week Duration of Treatment Two months Plan of Care Start Date 06/21/21 Plan of Care End Date 08/21/21 Therapeutic Interventions Therapeutic Interventions Home Exercise Program,Joint Mobilizations,Manual Therapy, Patient/Caregiver Education, Self-Care/Home Management,Soft Tissue Mobilization, Therapeutic Activities, Therapeutic Exercises Modalities Cold Pack/Ice Massage,Electric Stimulation,Hot Packs, Ultrasound Next Visit Focus/Plan Next Note Type Treatment Note Next Visit Plan STM, Joint mobilization, strengthening
--- NOTE | 2021-07-04 15:15 | PT.OTN ---
Current Diagnoses Pain in left shoulder (07/04/21) Stiffness of left shoulder, not elsewhere classified (07/04/21) Other injury of muscle(s) and tendon(s) of the rotator cuff of left shoulder, subsequent encounter (07/04/21) Strain of other muscles, fascia and tendons at shoulder and upper arm level, left arm, subsequent encounter (07/04/21) Physical Therapy Treatment Note PT-OP-A Visit Information Start: 06/21/21 10:56 Freq: Status: Active Protocol: Document 07/04/21 14:30 DCW (Rec: 07/04/21 15:15 DCW [id number]) Out-Patient Physical Therapy Visit Information Visit Information Visit Type Treatment Note Visit Start Time 14:30 Visit Stop Time 15:15 Total Visit Minutes 45 Visit Number 4 Number of SPINNING SUPERVISOR Visits 0 Evaluation Information Evaluation Date 06/21/21 PT-OP-B Current Condition Start: 06/21/21 10:56 Freq: Status: Active Protocol: Document 06/21/21 09:45 DCW (Rec: 06/21/21 11:08 DCW [id number]) Current Condition History of Current Condition Onset Date ~2 month history Current Complaints Left shoulder pain/stiffness History of Current Condition Pt is a 70 year old male presenting with a two month history of left shoulder pain. Pt notes he had some aching in the shoulder for a few month previous, however starting around the new year, he began having fairly constant, terrible pain. Notes pain was really bad for about five weeks, and just lived with it, hoping it would go away. Pt eventually went to see his PCP, received some dry needling, which he notes increased his discomfort. Pt then received a lidocane injection, which helped almost immediately. Pt reports this happened one week ago, and his pain as decreased from an 8-9 /10 to a 3/10. Pt is no longer having trouble sleeping, and is able to do most of his normal activities. Pt is unsure of his initial injury, reports the only thing he can think of is that he has a nervous tic that involves reaching up with his left hand to scratch his head, notes he may do this for hours while driving, and thinks that may have resulted in some inflammation or led to the original soreness. Pt's main pain cuyrrently is when lifting his arm into abduction , but only with his elbow flexed and his hand staying down, resulting in internal rotation in addition to the abduction. Also notes that his shoulder feels like it is catching, and gets stuck sometimes when he is performing smaller movements. Treatment Goals Patient/Caregiver Goals I just want it to be pain- free. PT-OP-C Subjective Start: 06/21/21 10:56 Freq: Status: Active Protocol: Document 07/04/21 14:30 DCW (Rec: 07/04/21 15:15 DCW [id number]) OP-PT Subjective Patient Comments Patient Comments It was a little sore yesterday, and then I reached back to turn a lamp on and got some pain, so I'm not free of it yet, but it is still better than it had been. PT-OP-F Manual Assessment Start: 06/21/21 10:56 Freq: Status: Active Protocol: Document 06/21/21 09:45 DCW (Rec: 06/21/21 11:19 DCW [id number]) Manual Assessments Soft Tissue Assessment Soft Tissue Mobility Assessment Good tone and soft tissue mobility, no tenderness to palpation at supraspinatus, infraspinatus, deltoid, or subscap Joint Mobility Assessment Joint Mobility Assessment Tenderness to palpation 3/4: Wincing and withdraw at left anterior GH joint line PT-OP-K Range of Motion Start: 06/21/21 10:56 Freq: Status: Active Protocol: Document 06/21/21 09:45 DCW (Rec: 06/21/21 11:19 DCW [id number]) Shoulder Goniometric Range of Motion Shoulder Right Active Shoulder ROM WFL Yes Testing Position Sitting Flexion 180 Abduction 180 External Rotation at 0 degrees Abduction 40 Internal Rotation Behind Back (text) T8 Left Active Shoulder ROM WFL No Testing Position Sitting Flexion 135 Abduction 180 External Rotation at 0 degrees Abduction 40 Internal Rotation Behind Back (text) T8 Shoulder ROM Limitations Shoulder ROM Limitations Pain PT-OP-L Special Tests Start: 06/21/21 10:56 Freq: Status: Active Protocol: Document 06/21/21 09:45 DCW (Rec: 06/21/21 11:19 DCW [id number]) Special Tests Shoulder Special Tests Yergason's Biceps Test Results Negative Speed's Biceps Test Results Negative Passive ER Rotator Cuff Test Results Negative Lift-Off Rotator Cuff Test Results Negative Adam Naresh Impingement Test Results Positive Left Grind Labrum Test Results Positive Left Empty Can Test Results Positive Left Drop Arm Rotator Cuff Test Results Negative Clunk Test Test Results Positive Left Belly Press Test Results Negative Apprehension Test Test Results Positive Left Anterior Draw Test Results Negative AC Joint Compression Test Results Negative PT-OP-M Strength Start: 06/21/21 10:56 Freq: Status: Active Protocol: Document 06/21/21 09:45 DCW (Rec: 06/21/21 11:19 DCW [id number]) Shoulder Strength Shoulder Manual Muscle Testing Right Flexion 4+ Good+ Abduction (C5) 5 Normal External Rotation 5 Normal Internal Rotation 5 Normal Left Flexion 4 Good Abduction (C5) 4+ Good+ External Rotation 4 Good Internal Rotation 5 Normal Comments Pain with resisted flexion and external rotation PT-OP-Q Treatments Start: 06/21/21 10:56 Freq: Status: Active Protocol: Document 07/04/21 14:30 DCW (Rec: 07/04/21 15:15 DCW [id number]) Cardio Equipment Upper Body Ergometer (UBE) Duration (Minutes) 4 RPM 60 Seat Position 12 Height 2.5 Manual Therapy Treatment Soft Tissue Mobilization 1 Body Location L Parascapulars Mobilization Type Strumming,Sustained Pressure Intensity/Depth Moderate Body Position Supine Joint Mobilizations 1 Joint L GH Direction Inferior Grade III Body Position Supine Manual Traction Upper Extremity Details L GH Long-axis distraction Body Position Supine Neuro Re-Education Treatment Other Activities 1 Details L Scapular PNF Comments Side-lying PT-OP-T Assessment and Plan Start: 06/21/21 10:56 Freq: Status: Active Protocol: Document 07/04/21 14:30 DCW (Rec: 07/04/21 15:15 DCW [id number]) Physical Therapy Assessment Impairments Impairments Activity Tolerance,Functional Activities,Functional Mobility ,Pain,ROM,Soft Tissue Mobility ,Strength,Tone Goals Two Impairment Left shoulder AROM abduction restricted to 135? Nursing Home Goal (LTG) Improve AROM of left shoulder to 180? abduction to allow for improved ability to reach for objects on his closet shelf. LTG Duration 08/21/21 One Impairment Pt does not have an appropriate home exercise program Short Term Goal (STG) Pt to be independent and compliant with an appropriate HEP STG Duration 07/22/21 Assessment Summary Assessment Pt having less overall pain, although some positions still create increased pain, especially reaching back. Physical Therapy Plan Frequency and Duration Frequency of Treatment 2x/Week Duration of Treatment Two months Plan of Care Start Date 06/21/21 Plan of Care End Date 08/21/21 Therapeutic Interventions Therapeutic Interventions Home Exercise Program,Joint Mobilizations,Manual Therapy, Patient/Caregiver Education, Self-Care/Home Management,Soft Tissue Mobilization, Therapeutic Activities, Therapeutic Exercises Modalities Cold Pack/Ice Massage,Electric Stimulation,Hot Packs, Ultrasound Next Visit Focus/Plan Next Note Type Treatment Note Next Visit Plan STM, Joint mobilization, strengthening
--- NOTE | 2021-07-12 15:58 | PT.OTN ---
Current Diagnoses Pain in left shoulder (07/12/21) Stiffness of left shoulder, not elsewhere classified (07/12/21) Other injury of muscle(s) and tendon(s) of the rotator cuff of left shoulder, subsequent encounter (07/12/21) Strain of other muscles, fascia and tendons at shoulder and upper arm level, left arm, subsequent encounter (07/12/21) Physical Therapy Treatment Note PT-OP-A Visit Information Start: 06/21/21 10:56 Freq: Status: Active Protocol: Document 07/12/21 15:15 DCW (Rec: 07/12/21 15:58 DCW [id number]) Out-Patient Physical Therapy Visit Information Visit Information Visit Type Treatment Note Visit Start Time 15:15 Visit Stop Time 16:00 Total Visit Minutes 45 Visit Number 5 Number of SECURITY CONSULTANT Visits 0 Evaluation Information Evaluation Date 06/21/21 PT-OP-B Current Condition Start: 06/21/21 10:56 Freq: Status: Active Protocol: Document 06/21/21 09:45 DCW (Rec: 06/21/21 11:08 DCW [id number]) Current Condition History of Current Condition Onset Date ~2 month history Current Complaints Left shoulder pain/stiffness History of Current Condition Pt is a 70 year old male presenting with a two month history of left shoulder pain. Pt notes he had some aching in the shoulder for a few month previous, however starting around the new year, he began having fairly constant, terrible pain. Notes pain was really bad for about five weeks, and just lived with it, hoping it would go away. Pt eventually went to see his PCP, received some dry needling, which he notes increased his discomfort. Pt then received a lidocane injection, which helped almost immediately. Pt reports this happened one week ago, and his pain as decreased from an 8-9 /10 to a 3/10. Pt is no longer having trouble sleeping, and is able to do most of his normal activities. Pt is unsure of his initial injury, reports the only thing he can think of is that he has a nervous tic that involves reaching up with his left hand to scratch his head, notes he may do this for hours while driving, and thinks that may have resulted in some inflammation or led to the original soreness. Pt's main pain cuyrrently is when lifting his arm into abduction , but only with his elbow flexed and his hand staying down, resulting in internal rotation in addition to the abduction. Also notes that his shoulder feels like it is catching, and gets stuck sometimes when he is performing smaller movements. Treatment Goals Patient/Caregiver Goals I just want it to be pain- free. PT-OP-C Subjective Start: 06/21/21 10:56 Freq: Status: Active Protocol: Document 07/12/21 15:15 DCW (Rec: 07/12/21 15:58 DCW [id number]) OP-PT Subjective Patient Comments Patient Comments I thought it was getting a lot better, but I stumbled this weekend, and had to catch myself on the wall, and I feel like I set myself back a bit. It's just a little bit worse now. PT-OP-F Manual Assessment Start: 06/21/21 10:56 Freq: Status: Active Protocol: Document 06/21/21 09:45 DCW (Rec: 06/21/21 11:19 DCW [id number]) Manual Assessments Soft Tissue Assessment Soft Tissue Mobility Assessment Good tone and soft tissue mobility, no tenderness to palpation at supraspinatus, infraspinatus, deltoid, or subscap Joint Mobility Assessment Joint Mobility Assessment Tenderness to palpation 3/4: Wincing and withdraw at left anterior GH joint line PT-OP-K Range of Motion Start: 06/21/21 10:56 Freq: Status: Active Protocol: Document 06/21/21 09:45 DCW (Rec: 06/21/21 11:19 DCW [id number]) Shoulder Goniometric Range of Motion Shoulder Right Active Shoulder ROM WFL Yes Testing Position Sitting Flexion 180 Abduction 180 External Rotation at 0 degrees Abduction 40 Internal Rotation Behind Back (text) T8 Left Active Shoulder ROM WFL No Testing Position Sitting Flexion 135 Abduction 180 External Rotation at 0 degrees Abduction 40 Internal Rotation Behind Back (text) T8 Shoulder ROM Limitations Shoulder ROM Limitations Pain PT-OP-L Special Tests Start: 06/21/21 10:56 Freq: Status: Active Protocol: Document 06/21/21 09:45 DCW (Rec: 06/21/21 11:19 DCW [id number]) Special Tests Shoulder Special Tests Yergason's Biceps Test Results Negative Speed's Biceps Test Results Negative Passive ER Rotator Cuff Test Results Negative Lift-Off Rotator Cuff Test Results Negative Adam Naresh Impingement Test Results Positive Left Grind Labrum Test Results Positive Left Empty Can Test Results Positive Left Drop Arm Rotator Cuff Test Results Negative Clunk Test Test Results Positive Left Belly Press Test Results Negative Apprehension Test Test Results Positive Left Anterior Draw Test Results Negative AC Joint Compression Test Results Negative PT-OP-M Strength Start: 06/21/21 10:56 Freq: Status: Active Protocol: Document 06/21/21 09:45 DCW (Rec: 06/21/21 11:19 DCW [id number]) Shoulder Strength Shoulder Manual Muscle Testing Right Flexion 4+ Good+ Abduction (C5) 5 Normal External Rotation 5 Normal Internal Rotation 5 Normal Left Flexion 4 Good Abduction (C5) 4+ Good+ External Rotation 4 Good Internal Rotation 5 Normal Comments Pain with resisted flexion and external rotation PT-OP-Q Treatments Start: 06/21/21 10:56 Freq: Status: Active Protocol: Document 07/12/21 15:15 DCW (Rec: 07/12/21 15:58 DCW [id number]) Cardio Equipment Upper Body Ergometer (UBE) Duration (Minutes) 4 RPM 60 Seat Position 12 Height 2.5 Therapeutic Exercises Standing Exercises 2 Standing Exercise Name Shoulder Extension Side bilateral Resistance Lv 3 Equipment Used T-band 1 Standing Exercise Name Rows Side bilateral Resistance Lv 3 Equipment Used T-band Manual Therapy Treatment Soft Tissue Mobilization 1 Body Location L Parascapulars Mobilization Type Strumming,Sustained Pressure Intensity/Depth Moderate Body Position Supine Joint Mobilizations 1 Joint L GH Direction Inferior Grade III Body Position Supine Manual Traction Upper Extremity Details L GH Long-axis distraction Body Position Supine PT-OP-T Assessment and Plan Start: 06/21/21 10:56 Freq: Status: Active Protocol: Document 07/12/21 15:15 DCW (Rec: 07/12/21 15:58 DCW [id number]) Physical Therapy Assessment Impairments Impairments Activity Tolerance,Functional Activities,Functional Mobility ,Pain,ROM,Soft Tissue Mobility ,Strength,Tone Goals Two Impairment Left shoulder AROM abduction restricted to 135? Failure Analysis Technician Goal (LTG) Improve AROM of left shoulder to 180? abduction to allow for improved ability to reach for objects on his closet shelf. LTG Duration 08/21/21 One Impairment Pt does not have an appropriate home exercise program Short Term Goal (STG) Pt to be independent and compliant with an appropriate HEP STG Duration 07/22/21 Assessment Summary Assessment Pt responding very well to treatment, given start of HEP for home performance, notes he feels much better when performing exercises. Physical Therapy Plan Frequency and Duration Frequency of Treatment 2x/Week Duration of Treatment Two months Plan of Care Start Date 06/21/21 Plan of Care End Date 08/21/21 Therapeutic Interventions Therapeutic Interventions Home Exercise Program,Joint Mobilizations,Manual Therapy, Patient/Caregiver Education, Self-Care/Home Management,Soft Tissue Mobilization, Therapeutic Activities, Therapeutic Exercises Modalities Cold Pack/Ice Massage,Electric Stimulation,Hot Packs, Ultrasound Next Visit Focus/Plan Next Note Type Treatment Note Next Visit Plan STM, Joint mobilization, strengthening
--- NOTE | 2021-07-14 14:32 | PT.OTN ---
Current Diagnoses Pain in left shoulder (07/14/21) Stiffness of left shoulder, not elsewhere classified (07/14/21) Other injury of muscle(s) and tendon(s) of the rotator cuff of left shoulder, subsequent encounter (07/14/21) Strain of other muscles, fascia and tendons at shoulder and upper arm level, left arm, subsequent encounter (07/14/21) Physical Therapy Treatment Note PT-OP-A Visit Information Start: 06/21/21 10:56 Freq: Status: Active Protocol: Document 07/14/21 13:45 DCW (Rec: 07/14/21 14:32 DCW [id number]) Out-Patient Physical Therapy Visit Information Visit Information Visit Type Treatment Note Visit Start Time 13:45 Visit Stop Time 14:30 Total Visit Minutes 45 Visit Number 6 Number of FLORIST Visits 0 Evaluation Information Evaluation Date 06/21/21 PT-OP-B Current Condition Start: 06/21/21 10:56 Freq: Status: Active Protocol: Document 06/21/21 09:45 DCW (Rec: 06/21/21 11:08 DCW [id number]) Current Condition History of Current Condition Onset Date ~2 month history Current Complaints Left shoulder pain/stiffness History of Current Condition Pt is a 70 year old male presenting with a two month history of left shoulder pain. Pt notes he had some aching in the shoulder for a few month previous, however starting around the new year, he began having fairly constant, terrible pain. Notes pain was really bad for about five weeks, and just lived with it, hoping it would go away. Pt eventually went to see his PCP, received some dry needling, which he notes increased his discomfort. Pt then received a lidocane injection, which helped almost immediately. Pt reports this happened one week ago, and his pain as decreased from an 8-9 /10 to a 3/10. Pt is no longer having trouble sleeping, and is able to do most of his normal activities. Pt is unsure of his initial injury, reports the only thing he can think of is that he has a nervous tic that involves reaching up with his left hand to scratch his head, notes he may do this for hours while driving, and thinks that may have resulted in some inflammation or led to the original soreness. Pt's main pain cuyrrently is when lifting his arm into abduction , but only with his elbow flexed and his hand staying down, resulting in internal rotation in addition to the abduction. Also notes that his shoulder feels like it is catching, and gets stuck sometimes when he is performing smaller movements. Treatment Goals Patient/Caregiver Goals I just want it to be pain- free. PT-OP-C Subjective Start: 06/21/21 10:56 Freq: Status: Active Protocol: Document 07/14/21 13:45 DCW (Rec: 07/14/21 14:32 DCW [id number]) OP-PT Subjective Patient Comments Patient Comments PT notes his shoulder is still problematic at times, particularly when pulling blanket up on his bed, but still much better than when all this started. PT-OP-F Manual Assessment Start: 06/21/21 10:56 Freq: Status: Active Protocol: Document 06/21/21 09:45 DCW (Rec: 06/21/21 11:19 DCW [id number]) Manual Assessments Soft Tissue Assessment Soft Tissue Mobility Assessment Good tone and soft tissue mobility, no tenderness to palpation at supraspinatus, infraspinatus, deltoid, or subscap Joint Mobility Assessment Joint Mobility Assessment Tenderness to palpation 3/4: Wincing and withdraw at left anterior GH joint line PT-OP-K Range of Motion Start: 06/21/21 10:56 Freq: Status: Active Protocol: Document 06/21/21 09:45 DCW (Rec: 06/21/21 11:19 DCW [id number]) Shoulder Goniometric Range of Motion Shoulder Right Active Shoulder ROM WFL Yes Testing Position Sitting Flexion 180 Abduction 180 External Rotation at 0 degrees Abduction 40 Internal Rotation Behind Back (text) T8 Left Active Shoulder ROM WFL No Testing Position Sitting Flexion 135 Abduction 180 External Rotation at 0 degrees Abduction 40 Internal Rotation Behind Back (text) T8 Shoulder ROM Limitations Shoulder ROM Limitations Pain PT-OP-L Special Tests Start: 06/21/21 10:56 Freq: Status: Active Protocol: Document 06/21/21 09:45 DCW (Rec: 06/21/21 11:19 DCW [id number]) Special Tests Shoulder Special Tests Yergason's Biceps Test Results Negative Speed's Biceps Test Results Negative Passive ER Rotator Cuff Test Results Negative Lift-Off Rotator Cuff Test Results Negative Adam Naresh Impingement Test Results Positive Left Grind Labrum Test Results Positive Left Empty Can Test Results Positive Left Drop Arm Rotator Cuff Test Results Negative Clunk Test Test Results Positive Left Belly Press Test Results Negative Apprehension Test Test Results Positive Left Anterior Draw Test Results Negative AC Joint Compression Test Results Negative PT-OP-M Strength Start: 06/21/21 10:56 Freq: Status: Active Protocol: Document 06/21/21 09:45 DCW (Rec: 06/21/21 11:19 DCW [id number]) Shoulder Strength Shoulder Manual Muscle Testing Right Flexion 4+ Good+ Abduction (C5) 5 Normal External Rotation 5 Normal Internal Rotation 5 Normal Left Flexion 4 Good Abduction (C5) 4+ Good+ External Rotation 4 Good Internal Rotation 5 Normal Comments Pain with resisted flexion and external rotation PT-OP-Q Treatments Start: 06/21/21 10:56 Freq: Status: Active Protocol: Document 07/14/21 13:45 DCW (Rec: 07/14/21 14:32 DCW [id number]) Cardio Equipment Upper Body Ergometer (UBE) Duration (Minutes) 4 RPM 60 Seat Position 12 Height 2.5 Therapeutic Exercises Other Exercises 2 Other Exercise Name Wall clock Side bilateral Resistance Yellow Equipment Used T-band 1 Other Exercise Name UE Resisted side-stepping Resistance Yellow Equipment Used T-band Manual Therapy Treatment Soft Tissue Mobilization 1 Body Location L Parascapulars Mobilization Type Strumming,Sustained Pressure Intensity/Depth Moderate Body Position Supine Joint Mobilizations 1 Joint L GH Direction Inferior Grade III Body Position Supine Manual Traction Upper Extremity Details L GH Long-axis distraction Body Position Supine PT-OP-T Assessment and Plan Start: 06/21/21 10:56 Freq: Status: Active Protocol: Document 07/14/21 13:45 DCW (Rec: 07/14/21 14:32 DCW [id number]) Physical Therapy Assessment Impairments Impairments Activity Tolerance,Functional Activities,Functional Mobility ,Pain,ROM,Soft Tissue Mobility ,Strength,Tone Goals Two Impairment Left shoulder AROM abduction restricted to 135? Gender Studies Professor Goal (LTG) Improve AROM of left shoulder to 180? abduction to allow for improved ability to reach for objects on his closet shelf. LTG Duration 08/21/21 One Impairment Pt does not have an appropriate home exercise program Short Term Goal (STG) Pt to be independent and compliant with an appropriate HEP STG Duration 07/22/21 Assessment Summary Assessment Pt doing well, able to tolerate strengthening better recently, responding very well to STM/Joint mobs. Physical Therapy Plan Frequency and Duration Frequency of Treatment 2x/Week Duration of Treatment Two months Plan of Care Start Date 06/21/21 Plan of Care End Date 08/21/21 Therapeutic Interventions Therapeutic Interventions Home Exercise Program,Joint Mobilizations,Manual Therapy, Patient/Caregiver Education, Self-Care/Home Management,Soft Tissue Mobilization, Therapeutic Activities, Therapeutic Exercises Modalities Cold Pack/Ice Massage,Electric Stimulation,Hot Packs, Ultrasound Next Visit Focus/Plan Next Note Type Treatment Note Next Visit Plan STM, Joint mobilization, strengthening
--- NOTE | 2021-07-17 14:27 | PT.OTN ---
Current Diagnoses Pain in left shoulder (07/17/21) Stiffness of left shoulder, not elsewhere classified (07/17/21) Other injury of muscle(s) and tendon(s) of the rotator cuff of left shoulder, subsequent encounter (07/17/21) Strain of other muscles, fascia and tendons at shoulder and upper arm level, left arm, subsequent encounter (07/17/21) Physical Therapy Treatment Note PT-OP-A Visit Information Start: 06/21/21 10:56 Freq: Status: Active Protocol: Document 07/17/21 13:45 DCW (Rec: 07/17/21 14:27 DCW [id number]) Out-Patient Physical Therapy Visit Information Visit Information Visit Type Treatment Note Visit Start Time 13:45 Visit Stop Time 14:30 Total Visit Minutes 45 Visit Number 7 Number of SYNTHETIC RESIN OPERATOR Visits 0 Evaluation Information Evaluation Date 06/21/21 PT-OP-B Current Condition Start: 06/21/21 10:56 Freq: Status: Active Protocol: Document 06/21/21 09:45 DCW (Rec: 06/21/21 11:08 DCW [id number]) Current Condition History of Current Condition Onset Date ~2 month history Current Complaints Left shoulder pain/stiffness History of Current Condition Pt is a 70 year old male presenting with a two month history of left shoulder pain. Pt notes he had some aching in the shoulder for a few month previous, however starting around the new year, he began having fairly constant, terrible pain. Notes pain was really bad for about five weeks, and just lived with it, hoping it would go away. Pt eventually went to see his PCP, received some dry needling, which he notes increased his discomfort. Pt then received a lidocane injection, which helped almost immediately. Pt reports this happened one week ago, and his pain as decreased from an 8-9 /10 to a 3/10. Pt is no longer having trouble sleeping, and is able to do most of his normal activities. Pt is unsure of his initial injury, reports the only thing he can think of is that he has a nervous tic that involves reaching up with his left hand to scratch his head, notes he may do this for hours while driving, and thinks that may have resulted in some inflammation or led to the original soreness. Pt's main pain cuyrrently is when lifting his arm into abduction , but only with his elbow flexed and his hand staying down, resulting in internal rotation in addition to the abduction. Also notes that his shoulder feels like it is catching, and gets stuck sometimes when he is performing smaller movements. Treatment Goals Patient/Caregiver Goals I just want it to be pain- free. PT-OP-C Subjective Start: 06/21/21 10:56 Freq: Status: Active Protocol: Document 07/17/21 13:45 DCW (Rec: 07/17/21 14:27 DCW [id number]) OP-PT Subjective Patient Comments Patient Comments It's not getting any worse. PT-OP-F Manual Assessment Start: 06/21/21 10:56 Freq: Status: Active Protocol: Document 06/21/21 09:45 DCW (Rec: 06/21/21 11:19 DCW [id number]) Manual Assessments Soft Tissue Assessment Soft Tissue Mobility Assessment Good tone and soft tissue mobility, no tenderness to palpation at supraspinatus, infraspinatus, deltoid, or subscap Joint Mobility Assessment Joint Mobility Assessment Tenderness to palpation 3/4: Wincing and withdraw at left anterior GH joint line PT-OP-K Range of Motion Start: 06/21/21 10:56 Freq: Status: Active Protocol: Document 06/21/21 09:45 DCW (Rec: 06/21/21 11:19 DCW [id number]) Shoulder Goniometric Range of Motion Shoulder Right Active Shoulder ROM WFL Yes Testing Position Sitting Flexion 180 Abduction 180 External Rotation at 0 degrees Abduction 40 Internal Rotation Behind Back (text) T8 Left Active Shoulder ROM WFL No Testing Position Sitting Flexion 135 Abduction 180 External Rotation at 0 degrees Abduction 40 Internal Rotation Behind Back (text) T8 Shoulder ROM Limitations Shoulder ROM Limitations Pain PT-OP-L Special Tests Start: 06/21/21 10:56 Freq: Status: Active Protocol: Document 06/21/21 09:45 DCW (Rec: 06/21/21 11:19 DCW [id number]) Special Tests Shoulder Special Tests Yergason's Biceps Test Results Negative Speed's Biceps Test Results Negative Passive ER Rotator Cuff Test Results Negative Lift-Off Rotator Cuff Test Results Negative Adam Naresh Impingement Test Results Positive Left Grind Labrum Test Results Positive Left Empty Can Test Results Positive Left Drop Arm Rotator Cuff Test Results Negative Clunk Test Test Results Positive Left Belly Press Test Results Negative Apprehension Test Test Results Positive Left Anterior Draw Test Results Negative AC Joint Compression Test Results Negative PT-OP-M Strength Start: 06/21/21 10:56 Freq: Status: Active Protocol: Document 06/21/21 09:45 DCW (Rec: 06/21/21 11:19 DCW [id number]) Shoulder Strength Shoulder Manual Muscle Testing Right Flexion 4+ Good+ Abduction (C5) 5 Normal External Rotation 5 Normal Internal Rotation 5 Normal Left Flexion 4 Good Abduction (C5) 4+ Good+ External Rotation 4 Good Internal Rotation 5 Normal Comments Pain with resisted flexion and external rotation PT-OP-Q Treatments Start: 06/21/21 10:56 Freq: Status: Active Protocol: Document 07/17/21 13:45 DCW (Rec: 07/17/21 14:27 DCW [id number]) Cardio Equipment Upper Body Ergometer (UBE) Duration (Minutes) 4 RPM 60 Seat Position 12 Height 2.5 Therapeutic Exercises Other Exercises 2 Other Exercise Name Wall clock Side bilateral Resistance Yellow Equipment Used T-band 1 Other Exercise Name UE Resisted side-stepping Resistance Yellow Equipment Used T-band Manual Therapy Treatment Soft Tissue Mobilization 1 Body Location L Parascapulars Mobilization Type Strumming,Sustained Pressure Intensity/Depth Moderate Body Position Supine Joint Mobilizations 1 Joint L GH Direction Inferior Grade III Body Position Supine Manual Traction Upper Extremity Details L GH Long-axis distraction Body Position Supine PT-OP-T Assessment and Plan Start: 06/21/21 10:56 Freq: Status: Active Protocol: Document 07/17/21 13:45 DCW (Rec: 07/17/21 14:27 DCW [id number]) Physical Therapy Assessment Impairments Impairments Activity Tolerance,Functional Activities,Functional Mobility ,Pain,ROM,Soft Tissue Mobility ,Strength,Tone Goals Two Impairment Left shoulder AROM abduction restricted to 135? Detention Goal (LTG) Improve AROM of left shoulder to 180? abduction to allow for improved ability to reach for objects on his closet shelf. LTG Duration 08/21/21 One Impairment Pt does not have an appropriate home exercise program Short Term Goal (STG) Pt to be independent and compliant with an appropriate HEP STG Duration 07/22/21 Assessment Summary Assessment AROM/PROM improving greatly, pt notes no pain when ROM is combined with UE distraction. Physical Therapy Plan Frequency and Duration Frequency of Treatment 2x/Week Duration of Treatment Two months Plan of Care Start Date 06/21/21 Plan of Care End Date 08/21/21 Therapeutic Interventions Therapeutic Interventions Home Exercise Program,Joint Mobilizations,Manual Therapy, Patient/Caregiver Education, Self-Care/Home Management,Soft Tissue Mobilization, Therapeutic Activities, Therapeutic Exercises Modalities Cold Pack/Ice Massage,Electric Stimulation,Hot Packs, Ultrasound Next Visit Focus/Plan Next Note Type Treatment Note Next Visit Plan STM, Joint mobilization, strengthening
--- NOTE | 2021-07-20 14:30 | PT.OTN ---
Current Diagnoses Pain in left shoulder (07/20/21) Stiffness of left shoulder, not elsewhere classified (07/20/21) Other injury of muscle(s) and tendon(s) of the rotator cuff of left shoulder, subsequent encounter (07/20/21) Strain of other muscles, fascia and tendons at shoulder and upper arm level, left arm, subsequent encounter (07/20/21) Physical Therapy Treatment Note PT-OP-A Visit Information Start: 06/21/21 10:56 Freq: Status: Active Protocol: Document 07/20/21 13:45 DCW (Rec: 07/20/21 14:29 DCW [id number]) Out-Patient Physical Therapy Visit Information Visit Information Visit Type Treatment Note Visit Start Time 13:45 Visit Stop Time 14:30 Total Visit Minutes 45 Visit Number 8 Number of STOCK TAKER Visits 0 Evaluation Information Evaluation Date 06/21/21 PT-OP-B Current Condition Start: 06/21/21 10:56 Freq: Status: Active Protocol: Document 06/21/21 09:45 DCW (Rec: 06/21/21 11:08 DCW [id number]) Current Condition History of Current Condition Onset Date ~2 month history Current Complaints Left shoulder pain/stiffness History of Current Condition Pt is a 70 year old male presenting with a two month history of left shoulder pain. Pt notes he had some aching in the shoulder for a few month previous, however starting around the new year, he began having fairly constant, terrible pain. Notes pain was really bad for about five weeks, and just lived with it, hoping it would go away. Pt eventually went to see his PCP, received some dry needling, which he notes increased his discomfort. Pt then received a lidocane injection, which helped almost immediately. Pt reports this happened one week ago, and his pain as decreased from an 8-9 /10 to a 3/10. Pt is no longer having trouble sleeping, and is able to do most of his normal activities. Pt is unsure of his initial injury, reports the only thing he can think of is that he has a nervous tic that involves reaching up with his left hand to scratch his head, notes he may do this for hours while driving, and thinks that may have resulted in some inflammation or led to the original soreness. Pt's main pain cuyrrently is when lifting his arm into abduction , but only with his elbow flexed and his hand staying down, resulting in internal rotation in addition to the abduction. Also notes that his shoulder feels like it is catching, and gets stuck sometimes when he is performing smaller movements. Treatment Goals Patient/Caregiver Goals I just want it to be pain- free. PT-OP-C Subjective Start: 06/21/21 10:56 Freq: Status: Active Protocol: Document 07/20/21 13:45 DCW (Rec: 07/20/21 14:29 DCW [id number]) OP-PT Subjective Patient Comments Patient Comments Overall, my motion is more pain-free, there's just some motions that causes pain in just one little spot, if it never gets better, I could live like this. I certainly hope it does get better, but I 'm happy with it. PT-OP-F Manual Assessment Start: 06/21/21 10:56 Freq: Status: Active Protocol: Document 06/21/21 09:45 DCW (Rec: 06/21/21 11:19 DCW [id number]) Manual Assessments Soft Tissue Assessment Soft Tissue Mobility Assessment Good tone and soft tissue mobility, no tenderness to palpation at supraspinatus, infraspinatus, deltoid, or subscap Joint Mobility Assessment Joint Mobility Assessment Tenderness to palpation 3/4: Wincing and withdraw at left anterior GH joint line PT-OP-K Range of Motion Start: 06/21/21 10:56 Freq: Status: Active Protocol: Document 06/21/21 09:45 DCW (Rec: 06/21/21 11:19 DCW [id number]) Shoulder Goniometric Range of Motion Shoulder Right Active Shoulder ROM WFL Yes Testing Position Sitting Flexion 180 Abduction 180 External Rotation at 0 degrees Abduction 40 Internal Rotation Behind Back (text) T8 Left Active Shoulder ROM WFL No Testing Position Sitting Flexion 135 Abduction 180 External Rotation at 0 degrees Abduction 40 Internal Rotation Behind Back (text) T8 Shoulder ROM Limitations Shoulder ROM Limitations Pain PT-OP-L Special Tests Start: 06/21/21 10:56 Freq: Status: Active Protocol: Document 06/21/21 09:45 DCW (Rec: 06/21/21 11:19 DCW [id number]) Special Tests Shoulder Special Tests Yergason's Biceps Test Results Negative Speed's Biceps Test Results Negative Passive ER Rotator Cuff Test Results Negative Lift-Off Rotator Cuff Test Results Negative Adam Naresh Impingement Test Results Positive Left Grind Labrum Test Results Positive Left Empty Can Test Results Positive Left Drop Arm Rotator Cuff Test Results Negative Clunk Test Test Results Positive Left Belly Press Test Results Negative Apprehension Test Test Results Positive Left Anterior Draw Test Results Negative AC Joint Compression Test Results Negative PT-OP-M Strength Start: 06/21/21 10:56 Freq: Status: Active Protocol: Document 06/21/21 09:45 DCW (Rec: 06/21/21 11:19 DCW [id number]) Shoulder Strength Shoulder Manual Muscle Testing Right Flexion 4+ Good+ Abduction (C5) 5 Normal External Rotation 5 Normal Internal Rotation 5 Normal Left Flexion 4 Good Abduction (C5) 4+ Good+ External Rotation 4 Good Internal Rotation 5 Normal Comments Pain with resisted flexion and external rotation PT-OP-Q Treatments Start: 06/21/21 10:56 Freq: Status: Active Protocol: Document 07/20/21 13:45 DCW (Rec: 07/20/21 14:29 DCW [id number]) Cardio Equipment Upper Body Ergometer (UBE) Duration (Minutes) 4 RPM 60 Seat Position 12 Height 2.5 Therapeutic Exercises Other Exercises 2 Other Exercise Name Wall clock Side bilateral Resistance Yellow Equipment Used T-band 1 Other Exercise Name UE Resisted side-stepping Resistance Yellow Equipment Used T-band Manual Therapy Treatment Soft Tissue Mobilization 1 Body Location L Parascapulars Mobilization Type Strumming,Sustained Pressure Intensity/Depth Moderate Body Position Supine Joint Mobilizations 1 Joint L GH Direction Inferior Grade III Body Position Supine Manual Traction Upper Extremity Details L GH Long-axis distraction Body Position Supine PT-OP-T Assessment and Plan Start: 06/21/21 10:56 Freq: Status: Active Protocol: Document 07/20/21 13:45 DCW (Rec: 07/20/21 14:29 DCW [id number]) Physical Therapy Assessment Impairments Impairments Activity Tolerance,Functional Activities,Functional Mobility ,Pain,ROM,Soft Tissue Mobility ,Strength,Tone Goals Two Impairment Left shoulder AROM abduction restricted to 135? Hardware Design Engineer Goal (LTG) Improve AROM of left shoulder to 180? abduction to allow for improved ability to reach for objects on his closet shelf. LTG Duration 08/21/21 One Impairment Pt does not have an appropriate home exercise program Short Term Goal (STG) Pt to be independent and compliant with an appropriate HEP STG Duration 07/22/21 Assessment Summary Assessment Pt performing nearly all activities pain-free, continued pain with combined arm elevation and internal rotation Physical Therapy Plan Frequency and Duration Frequency of Treatment 2x/Week Duration of Treatment Two months Plan of Care Start Date 06/21/21 Plan of Care End Date 08/21/21 Therapeutic Interventions Therapeutic Interventions Home Exercise Program,Joint Mobilizations,Manual Therapy, Patient/Caregiver Education, Self-Care/Home Management,Soft Tissue Mobilization, Therapeutic Activities, Therapeutic Exercises Modalities Cold Pack/Ice Massage,Electric Stimulation,Hot Packs, Ultrasound Next Visit Focus/Plan Next Note Type Treatment Note Next Visit Plan STM, Joint mobilization, strengthening
--- NOTE | 2021-07-27 17:34 | PT.OTN ---
Current Diagnoses Pain in left shoulder (07/27/21) Stiffness of left shoulder, not elsewhere classified (07/27/21) Other injury of muscle(s) and tendon(s) of the rotator cuff of left shoulder, subsequent encounter (07/27/21) Strain of other muscles, fascia and tendons at shoulder and upper arm level, left arm, subsequent encounter (07/27/21) Physical Therapy Treatment Note PT-OP-A Visit Information Start: 06/21/21 10:56 Freq: Status: Active Protocol: Document 07/27/21 16:45 DCW (Rec: 07/27/21 17:34 DCW [id number]) Out-Patient Physical Therapy Visit Information Visit Information Visit Type Treatment Note Visit Start Time 16:45 Visit Stop Time 17:30 Total Visit Minutes 45 Visit Number 9 Number of 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 Pt notes he had some aching in the shoulder for a few month previous, however starting around the new year, he began having fairly constant, terrible pain. Notes pain was really bad for about five weeks, and just lived with it, hoping it would go away. Pt eventually went to see his PCP, received some dry needling, which he notes increased his discomfort. Pt then received a lidocane injection, which helped almost immediately. Pt reports this happened one week ago, and his pain as decreased from an 8-9 /10 to a 3/10. Pt is no longer having trouble sleeping, and is able to do most of his normal activities. Pt is unsure of his initial injury, reports the only thing he can think of is that he has a nervous tic that involves reaching up with his left hand to scratch his head, notes he may do this for hours while driving, and thinks that may have resulted in some inflammation or led to the original soreness. Pt's main pain cuyrrently is when lifting his arm into abduction , but only with his elbow flexed and his hand staying down, resulting in internal rotation in addition to the abduction. Also notes that his shoulder feels like it is catching, and gets stuck sometimes when he is performing smaller movements. Treatment Goals Patient/Caregiver Goals I just want it to be pain- free. PT-OP-C Subjective Start: 06/21/21 10:56 Freq: Status: Active Protocol: Document 07/27/21 16:45 DCW (Rec: 07/27/21 17:34 DCW [id number]) OP-PT Subjective Patient Comments Patient Comments It was feeling better, but then I think I did something, I don't know, maybe I slept on it wrong, but it's a little worse the last few days. It just seems like it doesn't want to go away. PT-OP-F Manual Assessment Start: 06/21/21 10:56 Freq: Status: Active Protocol: Document 06/21/21 09:45 DCW (Rec: 06/21/21 11:19 DCW [id number]) Manual Assessments Soft Tissue Assessment Soft Tissue Mobility Assessment Good tone and soft tissue mobility, no tenderness to palpation at supraspinatus, infraspinatus, deltoid, or subscap Joint Mobility Assessment Joint Mobility Assessment Tenderness to palpation 3/4: Wincing and withdraw at left anterior GH joint line PT-OP-K Range of Motion Start: 06/21/21 10:56 Freq: Status: Active Protocol: Document 06/21/21 09:45 DCW (Rec: 06/21/21 11:19 DCW [id number]) Shoulder Goniometric Range of Motion Shoulder Right Active Shoulder ROM WFL Yes Testing Position Sitting Flexion 180 Abduction 180 External Rotation at 0 degrees Abduction 40 Internal Rotation Behind Back (text) T8 Left Active Shoulder ROM WFL No Testing Position Sitting Flexion 135 Abduction 180 External Rotation at 0 degrees Abduction 40 Internal Rotation Behind Back (text) T8 Shoulder ROM Limitations Shoulder ROM Limitations Pain PT-OP-L Special Tests Start: 06/21/21 10:56 Freq: Status: Active Protocol: Document 06/21/21 09:45 DCW (Rec: 06/21/21 11:19 DCW [id number]) Special Tests Shoulder Special Tests Yergason's Biceps Test Results Negative Speed's Biceps Test Results Negative Passive ER Rotator Cuff Test Results Negative Lift-Off Rotator Cuff Test Results Negative Adam Naresh Impingement Test Results Positive Left Grind Labrum Test Results Positive Left Empty Can Test Results Positive Left Drop Arm Rotator Cuff Test Results Negative Clunk Test Test Results Positive Left Belly Press Test Results Negative Apprehension Test Test Results Positive Left Anterior Draw Test Results Negative AC Joint Compression Test Results Negative PT-OP-M Strength Start: 06/21/21 10:56 Freq: Status: Active Protocol: Document 06/21/21 09:45 DCW (Rec: 06/21/21 11:19 DCW [id number]) Shoulder Strength Shoulder Manual Muscle Testing Right Flexion 4+ Good+ Abduction (C5) 5 Normal External Rotation 5 Normal Internal Rotation 5 Normal Left Flexion 4 Good Abduction (C5) 4+ Good+ External Rotation 4 Good Internal Rotation 5 Normal Comments Pain with resisted flexion and external rotation PT-OP-Q Treatments Start: 06/21/21 10:56 Freq: Status: Active Protocol: Document 07/27/21 16:45 DCW (Rec: 07/27/21 17:34 DCW [id number]) Cardio Equipment Upper Body Ergometer (UBE) Duration (Minutes) 4 RPM 60 Seat Position 12 Height 2.5 Therapeutic Exercises Sitting Exercises 1 Sitting Exercise Name 90/90 ER/IR Side left Resistance 2# Comments Pain-free Standing Exercises 4 Standing Exercise Name Wall ball circles 3 Standing Exercise Name Wall push-ups Comments W and <> hand positions Manual Therapy Treatment Soft Tissue Mobilization 1 Body Location L Parascapulars Mobilization Type Strumming,Sustained Pressure Intensity/Depth Moderate Body Position Supine Joint Mobilizations 1 Joint L GH Direction Inferior Grade III Body Position Supine Manual Traction Upper Extremity Details L GH Long-axis distraction Body Position Supine PT-OP-T Assessment and Plan Start: 06/21/21 10:56 Freq: Status: Active Protocol: Document 07/27/21 16:45 DCW (Rec: 07/27/21 17:34 DCW [id number]) Physical Therapy Assessment Impairments Impairments Activity Tolerance,Functional Activities,Functional Mobility ,Pain,ROM,Soft Tissue Mobility ,Strength,Tone Goals Two Impairment Left shoulder AROM abduction restricted to 135? Assisted Goal (LTG) Improve AROM of left shoulder to 180? abduction to allow for improved ability to reach for objects on his closet shelf. LTG Duration 08/21/21 One Impairment Pt does not have an appropriate home exercise program Short Term Goal (STG) Pt to be independent and compliant with an appropriate HEP STG Duration 07/22/21 Assessment Summary Assessment Pt tolerated additional strengthening exercises with minimal pain, still mainly positional pain with ER during abduction Physical Therapy Plan Frequency and Duration Frequency of Treatment 2x/Week Duration of Treatment Two months Plan of Care Start Date 06/21/21 Plan of Care End Date 08/21/21 Therapeutic Interventions Therapeutic Interventions Home Exercise Program,Joint Mobilizations,Manual Therapy, Patient/Caregiver Education, Self-Care/Home Management,Soft Tissue Mobilization, Therapeutic Activities, Therapeutic Exercises Modalities Cold Pack/Ice Massage,Electric Stimulation,Hot Packs, Ultrasound Next Visit Focus/Plan Next Note Type Treatment Note Next Visit Plan STM, Joint mobilization, strengthening
--- NOTE | 2021-07-31 16:47 | PT.OPPN ---
Current Diagnoses Pain in left shoulder (07/31/21) Stiffness of left shoulder, not elsewhere classified (07/31/21) Other injury of muscle(s) and tendon(s) of the rotator cuff of left shoulder, subsequent encounter (07/31/21) Strain of other muscles, fascia and tendons at shoulder and upper arm level, left arm, subsequent encounter (07/31/21) Physical Therapy Progress Note PT-OP-A Visit Information Start: 06/21/21 10:56 Freq: Status: Active Protocol: Document 07/31/21 16:00 DCW (Rec: 07/31/21 16:47 DCW [id number]) Out-Patient Physical Therapy Visit Information Visit Information Visit Type Treatment Note Visit Start Time 16:00 Visit Stop Time 16:45 Total Visit Minutes 45 Visit Number 10 Number of TRAY CHECKER Visits 0 Evaluation Information Evaluation Date 06/21/21 PT-OP-B Current Condition Start: 06/21/21 10:56 Freq: Status: Active Protocol: Document 06/21/21 09:45 DCW (Rec: 06/21/21 11:08 DCW [id number]) Current Condition History of Current Condition Onset Date ~2 month history Current Complaints Left shoulder pain/stiffness History of Current Condition Pt is a 70 year old male presenting with a two month history of left shoulder pain. Pt notes he had some aching in the shoulder for a few month previous, however starting around the new year, he began having fairly constant, terrible pain. Notes pain was really bad for about five weeks, and just lived with it, hoping it would go away. Pt eventually went to see his PCP, received some dry needling, which he notes increased his discomfort. Pt then received a lidocane injection, which helped almost immediately. Pt reports this happened one week ago, and his pain as decreased from an 8-9 /10 to a 3/10. Pt is no longer having trouble sleeping, and is able to do most of his normal activities. Pt is unsure of his initial injury, reports the only thing he can think of is that he has a nervous tic that involves reaching up with his left hand to scratch his head, notes he may do this for hours while driving, and thinks that may have resulted in some inflammation or led to the original soreness. Pt's main pain cuyrrently is when lifting his arm into abduction , but only with his elbow flexed and his hand staying down, resulting in internal rotation in addition to the abduction. Also notes that his shoulder feels like it is catching, and gets stuck sometimes when he is performing smaller movements. Treatment Goals Patient/Caregiver Goals I just want it to be pain- free. PT-OP-C Subjective Start: 06/21/21 10:56 Freq: Status: Active Protocol: Document 07/31/21 16:00 DCW (Rec: 07/31/21 16:47 DCW [id number]) OP-PT Subjective Patient Comments Patient Comments Pt continues to have very specific pain when trying to pull his blankets up while in bed. PT-OP-F Manual Assessment Start: 06/21/21 10:56 Freq: Status: Active Protocol: Document 06/21/21 09:45 DCW (Rec: 06/21/21 11:19 DCW [id number]) Manual Assessments Soft Tissue Assessment Soft Tissue Mobility Assessment Good tone and soft tissue mobility, no tenderness to palpation at supraspinatus, infraspinatus, deltoid, or subscap Joint Mobility Assessment Joint Mobility Assessment Tenderness to palpation 3/4: Wincing and withdraw at left anterior GH joint line PT-OP-K Range of Motion Start: 06/21/21 10:56 Freq: Status: Active Protocol: Document 06/21/21 09:45 DCW (Rec: 06/21/21 11:19 DCW [id number]) Shoulder Goniometric Range of Motion Shoulder Measured in Degrees Right Active Shoulder ROM WFL Yes Testing Position Sitting Flexion 180 Abduction 180 External Rotation at 0 degrees Abduction 40 Internal Rotation Behind Back (text) T8 Left Active Shoulder ROM WFL No Testing Position Sitting Flexion 135 Abduction 180 External Rotation at 0 degrees Abduction 40 Internal Rotation Behind Back (text) T8 Shoulder ROM Limitations Shoulder ROM Limitations Pain PT-OP-L Special Tests Start: 06/21/21 10:56 Freq: Status: Active Protocol: Document 06/21/21 09:45 DCW (Rec: 06/21/21 11:19 DCW [id number]) Special Tests Shoulder Special Tests Yergason's Biceps Test Results Negative Speed's Biceps Test Results Negative Passive ER Rotator Cuff Test Results Negative Lift-Off Rotator Cuff Test Results Negative Adam Naresh Impingement Test Results Positive Left Grind Labrum Test Results Positive Left Empty Can Test Results Positive Left Drop Arm Rotator Cuff Test Results Negative Clunk Test Test Results Positive Left Belly Press Test Results Negative Apprehension Test Test Results Positive Left Anterior Draw Test Results Negative AC Joint Compression Test Results Negative PT-OP-M Strength Start: 06/21/21 10:56 Freq: Status: Active Protocol: Document 06/21/21 09:45 DCW (Rec: 06/21/21 11:19 DCW [id number]) Shoulder Strength Shoulder Manual Muscle Testing Right Flexion 4+ Good+ Abduction (C5) 5 Normal External Rotation 5 Normal Internal Rotation 5 Normal Left Flexion 4 Good Abduction (C5) 4+ Good+ External Rotation 4 Good Internal Rotation 5 Normal Comments Pain with resisted flexion and external rotation PT-OP-T Assessment and Plan Start: 06/21/21 10:56 Freq: Status: Active Protocol: Document 07/31/21 16:00 DCW (Rec: 07/31/21 16:47 DCW [id number]) Physical Therapy Assessment Impairments Impairments Activity Tolerance,Functional Activities,Functional Mobility ,Pain,ROM,Soft Tissue Mobility ,Strength,Tone Goals Two Impairment Left shoulder AROM abduction restricted to 135? Intermediate Goal (LTG) Improve AROM of left shoulder to 180? abduction to allow for improved ability to reach for objects on his closet shelf. LTG Duration 08/21/21 One Impairment Pt does not have an appropriate home exercise program Short Term Goal (STG) Pt to be independent and compliant with an appropriate HEP STG Duration 07/22/21 Assessment Summary Assessment Pt doing well overall, still continues to show some signs of labral involvement, but mobility and pain levels are all improving Physical Therapy Plan Frequency and Duration Frequency of Treatment 2x/Week Duration of Treatment Two months Plan of Care Start Date 06/21/21 Plan of Care End Date 08/21/21 Therapeutic Interventions Therapeutic Interventions Home Exercise Program,Joint Mobilizations,Manual Therapy, Patient/Caregiver Education, Self-Care/Home Management,Soft Tissue Mobilization, Therapeutic Activities, Therapeutic Exercises Modalities Cold Pack/Ice Massage,Electric Stimulation,Hot Packs, Ultrasound Next Visit Focus/Plan Next Note Type Treatment Note Next Visit Plan STM, Joint mobilization, strengthening
--- NOTE | 2021-08-02 10:30 | PT.OTN ---
Current Diagnoses Pain in left shoulder (08/02/21) Stiffness of left shoulder, not elsewhere classified (08/02/21) Other injury of muscle(s) and tendon(s) of the rotator cuff of left shoulder, subsequent encounter (08/02/21) Strain of other muscles, fascia and tendons at shoulder and upper arm level, left arm, subsequent encounter (08/02/21) Physical Therapy Treatment Note PT-OP-A Visit Information Start: 06/21/21 10:56 Freq: Status: Active Protocol: Document 08/02/21 09:45 DCW (Rec: 08/02/21 10:30 DCW [id number]) Out-Patient Physical Therapy Visit Information Visit Information Visit Type Treatment Note Visit Start Time 09:45 Visit Stop Time 10:30 Total Visit Minutes 45 Visit Number 11 Number of VENEER LAYER Visits 0 Evaluation Information Evaluation Date 06/21/21 PT-OP-B Current Condition Start: 06/21/21 10:56 Freq: Status: Active Protocol: Document 06/21/21 09:45 DCW (Rec: 06/21/21 11:08 DCW [id number]) Current Condition History of Current Condition Onset Date ~2 month history Current Complaints Left shoulder pain/stiffness History of Current Condition Pt is a 70 year old male presenting with a two month history of left shoulder pain. Pt notes he had some aching in the shoulder for a few month previous, however starting around the new year, he began having fairly constant, terrible pain. Notes pain was really bad for about five weeks, and just lived with it, hoping it would go away. Pt eventually went to see his PCP, received some dry needling, which he notes increased his discomfort. Pt then received a lidocane injection, which helped almost immediately. Pt reports this happened one week ago, and his pain as decreased from an 8-9 /10 to a 3/10. Pt is no longer having trouble sleeping, and is able to do most of his normal activities. Pt is unsure of his initial injury, reports the only thing he can think of is that he has a nervous tic that involves reaching up with his left hand to scratch his head, notes he may do this for hours while driving, and thinks that may have resulted in some inflammation or led to the original soreness. Pt's main pain cuyrrently is when lifting his arm into abduction , but only with his elbow flexed and his hand staying down, resulting in internal rotation in addition to the abduction. Also notes that his shoulder feels like it is catching, and gets stuck sometimes when he is performing smaller movements. Treatment Goals Patient/Caregiver Goals I just want it to be pain- free. PT-OP-C Subjective Start: 06/21/21 10:56 Freq: Status: Active Protocol: Document 08/02/21 09:45 DCW (Rec: 08/02/21 10:30 DCW [id number]) OP-PT Subjective Patient Comments Patient Comments Pt notes his shoulder is doing pretty well today. PT-OP-F Manual Assessment Start: 06/21/21 10:56 Freq: Status: Active Protocol: Document 06/21/21 09:45 DCW (Rec: 06/21/21 11:19 DCW [id number]) Manual Assessments Soft Tissue Assessment Soft Tissue Mobility Assessment Good tone and soft tissue mobility, no tenderness to palpation at supraspinatus, infraspinatus, deltoid, or subscap Joint Mobility Assessment Joint Mobility Assessment Tenderness to palpation 3/4: Wincing and withdraw at left anterior GH joint line PT-OP-K Range of Motion Start: 06/21/21 10:56 Freq: Status: Active Protocol: Document 06/21/21 09:45 DCW (Rec: 06/21/21 11:19 DCW [id number]) Shoulder Goniometric Range of Motion Shoulder Right Active Shoulder ROM WFL Yes Testing Position Sitting Flexion 180 Abduction 180 External Rotation at 0 degrees Abduction 40 Internal Rotation Behind Back (text) T8 Left Active Shoulder ROM WFL No Testing Position Sitting Flexion 135 Abduction 180 External Rotation at 0 degrees Abduction 40 Internal Rotation Behind Back (text) T8 Shoulder ROM Limitations Shoulder ROM Limitations Pain PT-OP-L Special Tests Start: 06/21/21 10:56 Freq: Status: Active Protocol: Document 06/21/21 09:45 DCW (Rec: 06/21/21 11:19 DCW [id number]) Special Tests Shoulder Special Tests Yergason's Biceps Test Results Negative Speed's Biceps Test Results Negative Passive ER Rotator Cuff Test Results Negative Lift-Off Rotator Cuff Test Results Negative Adam Naresh Impingement Test Results Positive Left Grind Labrum Test Results Positive Left Empty Can Test Results Positive Left Drop Arm Rotator Cuff Test Results Negative Clunk Test Test Results Positive Left Belly Press Test Results Negative Apprehension Test Test Results Positive Left Anterior Draw Test Results Negative AC Joint Compression Test Results Negative PT-OP-M Strength Start: 06/21/21 10:56 Freq: Status: Active Protocol: Document 06/21/21 09:45 DCW (Rec: 06/21/21 11:19 DCW [id number]) Shoulder Strength Shoulder Manual Muscle Testing Right Flexion 4+ Good+ Abduction (C5) 5 Normal External Rotation 5 Normal Internal Rotation 5 Normal Left Flexion 4 Good Abduction (C5) 4+ Good+ External Rotation 4 Good Internal Rotation 5 Normal Comments Pain with resisted flexion and external rotation PT-OP-Q Treatments Start: 06/21/21 10:56 Freq: Status: Active Protocol: Document 08/02/21 09:45 DCW (Rec: 08/02/21 10:30 DCW [id number]) Cardio Equipment Upper Body Ergometer (UBE) Duration (Minutes) 4 RPM 60 Seat Position 12 Height 2.5 Therapeutic Exercises Sitting Exercises 1 Sitting Exercise Name 90/90 ER/IR Side left Resistance 2# Comments Pain-free Standing Exercises 4 Standing Exercise Name Wall ball circles 3 Standing Exercise Name Wall push-ups Comments W and <> hand positions Other Exercises 1 Other Exercise Name UE Resisted side-stepping Resistance Yellow Equipment Used T-band Manual Therapy Treatment Soft Tissue Mobilization 1 Body Location L Parascapulars Mobilization Type Strumming,Sustained Pressure Intensity/Depth Moderate Body Position Supine Joint Mobilizations 1 Joint L GH Direction Inferior Grade III Body Position Supine Manual Traction Upper Extremity Details L GH Long-axis distraction Body Position Supine PT-OP-T Assessment and Plan Start: 06/21/21 10:56 Freq: Status: Active Protocol: Document 08/02/21 09:45 DCW (Rec: 08/02/21 10:30 DCW [id number]) Physical Therapy Assessment Impairments Impairments Activity Tolerance,Functional Activities,Functional Mobility ,Pain,ROM,Soft Tissue Mobility ,Strength,Tone Goals Two Impairment Left shoulder AROM abduction restricted to 135? Link Trainer Operator Goal (LTG) Improve AROM of left shoulder to 180? abduction to allow for improved ability to reach for objects on his closet shelf. LTG Duration 08/21/21 One Impairment Pt does not have an appropriate home exercise program Short Term Goal (STG) Pt to be independent and compliant with an appropriate HEP STG Duration 07/22/21 Assessment Summary Assessment Pt had slightly increased pain with his strengthening today, but felt much better following manual treatment. Physical Therapy Plan Frequency and Duration Frequency of Treatment 2x/Week Duration of Treatment Two months Plan of Care Start Date 06/21/21 Plan of Care End Date 08/21/21 Therapeutic Interventions Therapeutic Interventions Home Exercise Program,Joint Mobilizations,Manual Therapy, Patient/Caregiver Education, Self-Care/Home Management,Soft Tissue Mobilization, Therapeutic Activities, Therapeutic Exercises Modalities Cold Pack/Ice Massage,Electric Stimulation,Hot Packs, Ultrasound Next Visit Focus/Plan Next Note Type Treatment Note Next Visit Plan STM, Joint mobilization, strengthening
--- NOTE | 2021-08-16 15:21 | PT-OP ANOTE ---
cancelled PT appt via [employer]
--- NOTE | 2021-08-29 18:11 | PT.OTN ---
Current Diagnoses Pain in left shoulder (08/29/21) Stiffness of left shoulder, not elsewhere classified (08/29/21) Other injury of muscle(s) and tendon(s) of the rotator cuff of left shoulder, subsequent encounter (08/29/21) Strain of other muscles, fascia and tendons at shoulder and upper arm level, left arm, subsequent encounter (08/29/21) Physical Therapy Treatment Note PT-OP-A Visit Information Start: 06/21/21 10:56 Freq: Status: Active Protocol: Document 08/29/21 10:28 [facility] (Rec: 08/29/21 11:18 [facility] [id number]) Out-Patient Physical Therapy Visit Information Visit Information Visit Type Treatment Note Visit Start Time 10:30 Visit Stop Time 11:15 Total Visit Minutes 45 Visit Number 12 PT-OP-B Current Condition Start: 06/21/21 10:56 Freq: Status: Active Protocol: Document 06/21/21 09:45 [facility] (Rec: 06/21/21 11:08 DC[facility] [id number]) Current Condition History of Current Condition Onset Date ~2 month history Current Complaints Left shoulder pain/stiffness History of Current Condition Pt is a 70 year old male presenting with a two month history of left shoulder pain. Pt notes he had some aching in the shoulder for a few month previous, however starting around the new year, he began having fairly constant, terrible pain. Notes pain was really bad for about five weeks, and just lived with it, hoping it would go away. Pt eventually went to see his PCP, received some dry needling, which he notes increased his discomfort. Pt then received a lidocane injection, which helped almost immediately. Pt reports this happened one week ago, and his pain as decreased from an 8-9 /10 to a 3/10. Pt is no longer having trouble sleeping, and is able to do most of his normal activities. Pt is unsure of his initial injury, reports the only thing he can think of is that he has a nervous tic that involves reaching up with his left hand to scratch his head, notes he may do this for hours while driving, and thinks that may have resulted in some inflammation or led to the original soreness. Pt's main pain cuyrrently is when lifting his arm into abduction , but only with his elbow flexed and his hand staying down, resulting in internal rotation in addition to the abduction. Also notes that his shoulder feels like it is catching, and gets stuck sometimes when he is performing smaller movements. Treatment Goals Patient/Caregiver Goals I just want it to be pain- free. PT-OP-C Subjective Start: 06/21/21 10:56 Freq: Status: Active Protocol: Document 08/29/21 10:28 [facility] (Rec: 08/29/21 11:18 [facility] [id number]) OP-PT Subjective Patient Comments Patient Comments pt notes his shoulder was doing better overall and he felt he could DC PT however he had a set back yesterday when he pulled up the bed sheets and today feels pain in the front of his shoulder. PT-OP-F Manual Assessment Start: 06/21/21 10:56 Freq: Status: Active Protocol: Document 06/21/21 09:45 [facility] (Rec: 06/21/21 11:19 DC[facility] [id number]) Manual Assessments Soft Tissue Assessment Soft Tissue Mobility Assessment Good tone and soft tissue mobility, no tenderness to palpation at supraspinatus, infraspinatus, deltoid, or subscap Joint Mobility Assessment Joint Mobility Assessment Tenderness to palpation 3/4: Wincing and withdraw at left anterior GH joint line PT-OP-K Range of Motion Start: 06/21/21 10:56 Freq: Status: Active Protocol: Document 06/21/21 09:45 [facility] (Rec: 06/21/21 11:19 DCW [id number]) Shoulder Goniometric Range of Motion Shoulder Right Active Shoulder ROM WFL Yes Testing Position Sitting Flexion 180 Abduction 180 External Rotation at 0 degrees Abduction 40 Internal Rotation Behind Back (text) T8 Left Active Shoulder ROM WFL No Testing Position Sitting Flexion 135 Abduction 180 External Rotation at 0 degrees Abduction 40 Internal Rotation Behind Back (text) T8 Shoulder ROM Limitations Shoulder ROM Limitations Pain PT-OP-L Special Tests Start: 06/21/21 10:56 Freq: Status: Active Protocol: Document 06/21/21 09:45 [facility] (Rec: 06/21/21 11:19 DC[facility] [id number]) Special Tests Shoulder Special Tests Yergason's Biceps Test Results Negative Speed's Biceps Test Results Negative Passive ER Rotator Cuff Test Results Negative Lift-Off Rotator Cuff Test Results Negative Adam Naresh Impingement Test Results Positive Left Grind Labrum Test Results Positive Left Empty Can Test Results Positive Left Drop Arm Rotator Cuff Test Results Negative Clunk Test Test Results Positive Left Belly Press Test Results Negative Apprehension Test Test Results Positive Left Anterior Draw Test Results Negative AC Joint Compression Test Results Negative PT-OP-M Strength Start: 06/21/21 10:56 Freq: Status: Active Protocol: Document 06/21/21 09:45 DCW (Rec: 06/21/21 11:19 DCW [id number]) Shoulder Strength Shoulder Manual Muscle Testing Right Flexion 4+ Good+ Abduction (C5) 5 Normal External Rotation 5 Normal Internal Rotation 5 Normal Left Flexion 4 Good Abduction (C5) 4+ Good+ External Rotation 4 Good Internal Rotation 5 Normal Comments Pain with resisted flexion and external rotation PT-OP-Q Treatments Start: 06/21/21 10:56 Freq: Status: Active Protocol: Document 08/29/21 10:28 [facility] (Rec: 08/29/21 11:18 [facility] [id number]) Therapeutic Exercises Supine Exercises pec stretch over edge of the table Reps/Minutes hold 1-2 min if tolerated 3 Supine Exercise Name Shoulder flexion /c PVC Side bilateral Reps/Minutes x 20 reps 1 Supine Exercise Name Serratus punch Side bilateral Resistance 2# Sitting Exercises 2 Sitting Exercise Name ER with band, elbows at side Reps/Minutes 3 x 10 reps Manual Therapy Treatment Joint Mobilizations 1 Joint L GH Direction Inferior Grade III Body Position Supine Manual Traction Upper Extremity Details L GH Long-axis distraction Body Position Supine Manual Techniques manual shoulder ROM with end range stretch Comments all planes, pain with shoulder abduction at 110 and flexion at 140 today PT-OP-R Modalities Start: 06/21/21 10:56 Freq: Status: Active Protocol: Document 08/29/21 10:28 [facility] (Rec: 08/29/21 18:09 [facility] [id number]) Hot Pack/Cold Pack Treatment Ice Massage Location left proximal biceps tendon Patient Position Hooklying Patient Tolerance Good Comments pt notes decreased pt following PT treatment today, ice massage ended tx today PT-OP-T Assessment and Plan Start: 06/21/21 10:56 Freq: Status: Active Protocol: Document 08/29/21 10:28 [facility] (Rec: 08/29/21 11:18 [facility] [id number]) Physical Therapy Assessment Goals Two Impairment Left shoulder AROM abduction restricted to 135? Soda Worker Goal (LTG) Improve AROM of left shoulder to 180? abduction to allow for improved ability to reach for objects on his closet shelf. Some progress LTG Duration 10/29/21 One Impairment Pt does not have an appropriate home exercise program Short Term Goal (STG) Pt to be independent and compliant with an appropriate HEP Pt understands his program for home, this was updated today as it had been a month since he was seen in PT STG Duration 08/29/21 Assessment Summary Assessment Davey has not been seen in PT since 08/02/21. Pt notes he had been progressing very well but recently had a set back. He reported pain at the biceps tendon today and was experiencing impingement symptoms with abduction movements. He did well with manual therapy techniques today and his exercises were reviewed for home. He was shown ice massage technique for anti inflammatory. He may benefit from additional visits in PT to ensure he has met his goals. He has one visit left only this week. Physical Therapy Plan Frequency and Duration Frequency of Treatment 2x/Week Duration of Treatment Two months Plan of Care Start Date 08/29/21 Plan of Care End Date 10/31/21 Therapeutic Interventions Therapeutic Interventions Home Exercise Program,Joint Mobilizations,Manual Therapy, Patient/Caregiver Education, Self-Care/Home Management,Soft Tissue Mobilization, Therapeutic Activities, Therapeutic Exercises Modalities Cold Pack/Ice Massage,Electric Stimulation,Hot Packs, Ultrasound Next Visit Focus/Plan Next Note Type Treatment Note Next Visit Plan STM, Joint mobilization, strengthening
--- NOTE | 2021-08-29 18:12 | PT.OPPOC ---
Physical, Occupational & Speech Therapy At Current Diagnoses Pain in left shoulder (08/29/21) Stiffness of left shoulder, not elsewhere classified (08/29/21) Other injury of muscle(s) and tendon(s) of the rotator cuff of left shoulder, subsequent encounter (08/29/21) Strain of other muscles, fascia and tendons at shoulder and upper arm level, left arm, subsequent encounter (08/29/21) Visit Care Team Role Provider Type Diego Rivera DO Attending Provider Physician Family Provider Primary Care Provider Referring Provider Specialty: Family Practice Address: [address] [place] [address], [facility] Email: Plan Of Care PT-OP-T Assessment and Plan Start: 06/21/21 10:56 Freq: Status: Active Protocol: Document 08/29/21 10:28 [facility] (Rec: 08/29/21 11:18 [facility] [id number]) Physical Therapy Assessment Goals Two Impairment Left shoulder AROM abduction restricted to 135? 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 abduction to allow for improved ability to reach for objects on his closet shelf. Some progress LTG Duration 10/29/21 One Impairment Pt does not have an appropriate home exercise program Short Term Goal (STG) Pt to be independent and compliant with an appropriate HEP Pt understands his program for home, this was updated today as it had been a month since he was seen in PT STG Duration 08/29/21 Assessment Summary Assessment Davey has not been seen in PT since 08/02/21. Pt notes he had been progressing very well but recently had a set back. He reported pain at the biceps tendon today and was experiencing impingement symptoms with abduction movements. He did well with manual therapy techniques today and his exercises were reviewed for home. He was shown ice massage technique for anti inflammatory. He may benefit from additional visits in PT to ensure he has met his goals. He has one visit left only this week. Physical Therapy Plan Frequency and Duration Frequency of Treatment 2x/Week Duration of Treatment Two months Plan of Care Start Date 08/29/21 Plan of Care End Date 10/31/21 Therapeutic Interventions Therapeutic Interventions Home Exercise Program,Joint Mobilizations,Manual Therapy, Patient/Caregiver Education, Self-Care/Home Management,Soft Tissue Mobilization, Therapeutic Activities, Therapeutic Exercises Modalities Cold Pack/Ice Massage,Electric Stimulation,Hot Packs, Ultrasound Next Visit Focus/Plan Next Note Type Treatment Note Next Visit Plan STM, Joint mobilization, strengthening Plan of Care Dates Plan of Care Start Date 08/29/21 Plan of Care End Date 10/31/21 Electronically Signed by: Parisa Serrato, PT 08/29/21 [id number] If you are in agreement with this Plan of Care, please return a signed and dated copy. I have reviewed this Plan of Care and certify that the skilled therapy services above are required to meet the patient?s needs. Physician Signature Date Printed Name and Credentials Clinical Instructor Signature Printed Name and Credentials
--- NOTE | 2022-01-22 11:53 | PT.OPDS ---
Current Diagnoses Pain in left shoulder (08/29/21) Stiffness of left shoulder, not elsewhere classified (08/29/21) Other injury of muscle(s) and tendon(s) of the rotator cuff of left shoulder, subsequent encounter (08/29/21) Strain of other muscles, fascia and tendons at shoulder and upper arm level, left arm, subsequent encounter (08/29/21) Visit Care Team Role Provider Type Farshad Rivera DO Attending Provider Physician Family Provider Primary Care Provider Referring Provider Specialty: Family Practice Address: [address] [place] [address], [facility] Email: Visit Number Visit Number 12 Discharge Summary PT-OP-B Current Condition Start: 06/21/21 10:56 Freq: Status: Active Protocol: Document 06/21/21 09:45 DCW (Rec: 06/21/21 11:08 DCW [id number]) Current Condition History of Current Condition Onset Date ~2 month history Current Complaints Left shoulder pain/stiffness History of Current Condition Pt is a 70 year old male presenting with a two month history of left shoulder pain. Pt notes he had some aching in the shoulder for a few month previous, however starting around the new year, he began having fairly constant, terrible pain. Notes pain was really bad for about five weeks, and just lived with it, hoping it would go away. Pt eventually went to see his PCP, received some dry needling, which he notes increased his discomfort. Pt then received a lidocane injection, which helped almost immediately. Pt reports this happened one week ago, and his pain as decreased from an 8-9 /10 to a 3/10. Pt is no longer having trouble sleeping, and is able to do most of his normal activities. Pt is unsure of his initial injury, reports the only thing he can think of is that he has a nervous tic that involves reaching up with his left hand to scratch his head, notes he may do this for hours while driving, and thinks that may have resulted in some inflammation or led to the original soreness. Pt's main pain cuyrrently is when lifting his arm into abduction , but only with his elbow flexed and his hand staying down, resulting in internal rotation in addition to the abduction. Also notes that his shoulder feels like it is catching, and gets stuck sometimes when he is performing smaller movements. Treatment Goals Patient/Caregiver Goals I just want it to be pain- free. PT-OP-C Subjective Start: 06/21/21 10:56 Freq: Status: Active Protocol: Document 08/29/21 10:28 AMH (Rec: 08/29/21 11:18 AMH [id number]) OP-PT Subjective Patient Comments Patient Comments pt notes his shoulder was doing better overall and he felt he could DC PT however he had a set back yesterday when he pulled up the bed sheets and today feels pain in the front of his shoulder. PT-OP-F Manual Assessment Start: 06/21/21 10:56 Freq: Status: Active Protocol: Document 06/21/21 09:45 DCW (Rec: 06/21/21 11:19 DCW [id number]) Manual Assessments Soft Tissue Assessment Soft Tissue Mobility Assessment Good tone and soft tissue mobility, no tenderness to palpation at supraspinatus, infraspinatus, deltoid, or subscap Joint Mobility Assessment Joint Mobility Assessment Tenderness to palpation 3/4: Wincing and withdraw at left anterior GH joint line PT-OP-K Range of Motion Start: 06/21/21 10:56 Freq: Status: Active Protocol: Document 06/21/21 09:45 DCW (Rec: 06/21/21 11:19 DCW [id number]) Shoulder Goniometric Range of Motion Shoulder Right Active Shoulder ROM WFL Yes Testing Position Sitting Flexion 180 Abduction 180 External Rotation at 0 degrees Abduction 40 Internal Rotation Behind Back (text) T8 Left Active Shoulder ROM WFL No Testing Position Sitting Flexion 135 Abduction 180 External Rotation at 0 degrees Abduction 40 Internal Rotation Behind Back (text) T8 Shoulder ROM Limitations Shoulder ROM Limitations Pain PT-OP-L Special Tests Start: 06/21/21 10:56 Freq: Status: Active Protocol: Document 06/21/21 09:45 DCW (Rec: 06/21/21 11:19 DCW [id number]) Special Tests Shoulder Special Tests Yergason's Biceps Test Results Negative Speed's Biceps Test Results Negative Passive ER Rotator Cuff Test Results Negative Lift-Off Rotator Cuff Test Results Negative Adam Naresh Impingement Test Results Positive Left Grind Labrum Test Results Positive Left Empty Can Test Results Positive Left Drop Arm Rotator Cuff Test Results Negative Clunk Test Test Results Positive Left Belly Press Test Results Negative Apprehension Test Test Results Positive Left Anterior Draw Test Results Negative AC Joint Compression Test Results Negative PT-OP-M Strength Start: 06/21/21 10:56 Freq: Status: Active Protocol: Document 06/21/21 09:45 DCW (Rec: 06/21/21 11:19 DCW [id number]) Shoulder Strength Shoulder Manual Muscle Testing Right Flexion 4+ Good+ Abduction (C5) 5 Normal External Rotation 5 Normal Internal Rotation 5 Normal Left Flexion 4 Good Abduction (C5) 4+ Good+ External Rotation 4 Good Internal Rotation 5 Normal Comments Pain with resisted flexion and external rotation PT-OP-T Assessment and Plan Start: 06/21/21 10:56 Freq: Status: Active Protocol: Document 01/22/22 11:52 DCW (Rec: 01/22/22 11:53 DCW [id number]) Physical Therapy Assessment Assessment Summary Assessment Pt canceled his last scheduled visit, never scheduled any follow-up visits. Pt has now not been seen in four months. Will discharge at this time. Pt will require a new referral in order to return to skilled therapy. Physical Therapy Plan Discharge Physical Therapy Discharge Reasons No Longer Attending PT Next Visit Focus/Plan Next Note Type Discharge Summary
== END 2022-01-23 11:55 | disposition home or self-care (01) ==
LOC: PHYS 10:30
PROVIDERS: Family Provider Family Medicine; PCP Family Medicine; Referring Provider Family Medicine; Visit Provider Family Medicine
DX: M25.512 Pain in left shoulder (principal); M25.612 Stiffness of left shoulder, not elsewhere classified; S46.092D Other injury of muscle(s) and tendon(s) of the rotator cuff of left shoulder, subsequent encounter; S46.812D Strain of other muscles, fascia and tendons at shoulder and upper arm level, left arm, subsequent encounter
CPT/HCPCS: 97110; 97112; 97140; 97161

== ENCOUNTER 2021-09-13 12:19 | Emergency (ER) | payer MEDICARE, SELFPAY ==
[2021-09-13 12:25] VITALS: BP 181/93; PULSE 68; RESP 17; TEMP 36.3; O2SAT 96; BMI 36.3
[2021-09-13 13:07] LABS: Add Manual Diff / Slide Review NO; Basophils Absolute Auto 100 /uL (0-100); Basophils Percent Auto 1.2 % (0-2); Eosinophils Absolute Auto 300 /uL (0-450); Eosinophils Percent Auto 3.6 % (2-4); Hematocrit 48.7 % (41-53); Hemoglobin 16.8 g/dL (13.5-17.5); Lymphocytes Absolute Auto 2100 /uL (1100-4500); Lymphocytes Percent Auto 26.4 % (25-40); Mean Corpuscular HGB Conc 34.4 % (30-36); Mean Corpuscular Hemoglobin 31.4 PG (26-34); Mean Corpuscular Volume 91.3 fL (80-100); Monocytes Absolute Auto 700 /uL (0-900); Neutrophils Absolute Auto 4700 /uL (1500-7000); Neutrophils Percent Auto 59.8 % (50-75); Platelet Count 214 X10^3/uL (150-400); Red Blood Cell Count 5.34 X10^6/uL (4.5-5.9); Red Cell Distribution Width 13.1 % (11.6-14.8); White Blood Cell Count 7.8 X10^3/uL (4.5-11.0)
[2021-09-13] MEDS: LORazepam 0.5 MG TABLET PO ×2 (13:09→17:32)
[2021-09-13 13:14] LABS: UR Morphine/Opiate cutoff 300 Negative (Negative); Ur Creatinine Normal (Normal); Ur Specific Gravity Normal (Normal); Urine Amphetamines Negative (Negative); Urine Barbiturates Negative (Negative); Urine Benzodiazepines Negative (Negative); Urine Cocaine Negative (Negative); Urine MDMA Negative (Negative); Urine Methadone Negative (Negative); Urine Methamphetamines Negative (Negative); Urine Oxycodone Negative (Negative); Urine Phencyclidine Negative (Negative); Urine Tetrahydrocannabinol Negative (Negative); Urine Tricyclic Antidepressant Negative (Negative); Urine pH Normal (Normal)
[2021-09-13 13:14] LABS: Acetaminophen < 10 ug/mL (10-30); Alanine Aminotransferase 47 IU/L (<50); Albumin 4.5 g/dL (3.5-5.0); Albumin Globulin Ratio 1.7 (1.0-2.8); Alkaline Phosphatase 75 U/L (38-126); Aspartate Aminotransferase 33 IU/L (17-59); BUN Creatinine Ratio 11.8 (6-22); Bilirubin Total 0.6 mg/dL (0.2-1.3); Blood Urea Nitrogen 14 mg/dL (9-20); Calcium 9.4 mg/dL (8.4-10.2); Carbon Dioxide 26 mmol/L (22-32); Chloride 104 mmol/L (98-107); Estimated Glomerular Filt Rate > 60 mL/min (>60); Ethanol (ETOH) < 10 mg/dL; Globulin 2.6 g/dL (1.7-4.1); Glucose 144 mg/dL (80-110); HEMOLYSIS < 15 (0-50); Potassium 4.6 mmol/L (3.4-5.1); Salicylate < 1.0 mg/dL (<20); Sodium 137 mmol/L (137-145); Total Protein 7.1 g/dL (6.3-8.2)
[2021-09-13 13:21] LABS: COVID19 -Nasal RAPID Negative (Negative)
[2021-09-13 13:30] LABS: Free T4, Direct Thyroxine 1.15 ng/dL (0.78-2.19)
[2021-09-13 13:44] LABS: Thyroid Stimulating Hormone 1.31 uIU/mL (0.47-4.68)
--- NOTE | 2021-09-13 15:13 | ED.PSYCH ---
HPI - Psych General Chief Complaint: Psychiatric Symptoms Stated Complaint: SUICIDAL THOUGHTS MENTAL HEALTH Time Seen by Provider: 09/13/21 13:00 Source: patient Mode of arrival: Ambulatory Limitations: no limitations History of Present Illness HPI Narrative: This is a 70-year-old male with history of prostate cancer and recurrent who received radiation and developed hemorrhagic radiation cystitis and essential tremor, depression, dyslipidemia and diabetes. Patient states he had 50 hyperbaric treatments in the past. Had 2 years without any bleeding and developed bleeding about 2 months ago. He had a pretty traumatic experience of having a catheter placed here about a month ago and has had increasingly obsessive thoughts about his radiation cystitis, concern and worry about this continuing to worsen. He states last night he did a lot a reading on the Internet and the things that he red scared him. Today when he woke up he began to feel very anxious, overwhelmed and had thoughts of harming himself. He states he has had depressive and sometimes even obsessive issues in the past he has followed with counselors had medication in even did intensive outpatient. 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 He states today that he reached a point where he felt that he would potentially kill himself, he had a plan to take all the medications in the house, when he has had these thoughts in the past he has always reassured himself that he would not harm himself because he does not wish chart is family but today he felt that in the long run it would probably be better than if he did not kill himself. Patient at this time is feeling improved he has continued to have these obsessive thoughts but received a dose of lorazepam in the department and has improved his anxiety and sense of being overwhelmed significantly. He would like to return home today, he does contract for safety, he is interested in intensive outpatient therapy and is open to having a new or adjustment to medications. He is accompanied by his at bedside. His primary care physician is Dr. Rivera. He has follow-up with Dr. Vidal his urologist this coming week. We also discussed possibly following up with support groups for patients with hemorrhagic radiation cystitis. Related Data Home Medications Medication Instructions Recorded Confirmed aspirin 81 mg tablet,delayed 81 mg PO DAILY 02/04/20 09/20/21 release bupropion HCl 300 mg 24 hr tablet, 300 mg PO DAILY 09/13/21 09/20/21 extended release insulin glargine 100 unit/mL (3 54 unit SUBCUT DAILY 09/13/21 09/20/21 mL) subcutaneous pen (Lantus Solostar U-100 Insulin) Previous Rx's Medication Instructions Recorded Accu check test strips #100 ea 10/20/20 Ultrafine TM-short Pen Needle #100 ea 10/20/20 Bath Fit [id number] insulin aspart U-100 100 unit/mL 15 unit (0.15 mL) SUBCUT TID #15 mL 10/28/20 (3 mL) subcutaneous pen (Novolog Flexpen U-100 Insulin aspart) simvastatin 20 mg tablet See Rx Instructions .Route 01/03/21 .COMPLEX #90 tabs losartan 50 mg tablet See Rx Instructions .Route 06/30/21 .COMPLEX #90 tabs lorazepam 1 mg tablet (Ativan) 0.5 mg PO TID PRN anxiety #45 tabs 09/14/21 Allergies Allergy/AdvReac Type Severity Reaction Status Date / Time tree and shrub pollen Allergy Mild Verified 09/20/21 08:11 Review of Systems Review of Systems ROS Unobtainable: All systems reviewed & are unremarkable except as noted in HPI and below Patient History Medical History (Updated 09/20/21 @ 09:49 by Kristin Vidal MD) Allergies (~1977) Anxiety and depression Benign familial tremor (~2004) Chicken pox (~1968) Chronic nasal congestion 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 Colon polyps (~2015) Compulsive overeating Constipation (~2019) Diabetic nephropathy Diverticular disease (~2016) Elevated ALT measurement Erectile dysfunction Fractures Gross hematuria Hearing loss (~2014) Hemorrhoid (~1999) History of nephrolithiasis (~2010) History of urinary incontinence (~2004) HTN (hypertension) Hypercholesterolemia HOWARD (obstructive sleep apnea) Peripheral neuropathy (~2015) Prostate cancer (~2002) Radiation cystitis Skin cancer (~2016) Skin tags, multiple acquired Sleep apnea (~2004) Type 2 diabetes mellitus with peripheral neuropathy Upper extremity somatic dysfunction Vitamin D deficiency Wrist pain (~2019) Surgical History Anesthesia H/O cystoscopy H/O prostate biopsy H/O prostatectomy H/O transurethral resection of prostate (~11/2004) H/O vasectomy History of surgery on right wrist (~2000) Family History Father Colon cancer Loud snoring Insomnia Obesity Mother Cancer Family/Other Alcohol abuse Substance abuse Social History marital status: Smoking Status: Never smoker alcohol intake: current Smoking Status: Never smoker alcohol intake frequency: holidays/special occasions only Substance Use Type: does not use Exam Narrative Exam Narrative: GENERAL: Alert and oriented x three, male in mild distress. HEENT: Head normocephalic, atraumatic, EOMI, pupils reactive, face symmetric, moist mucous membranes NECK: Supple, full range of motion CARDIOVASCULAR: Regular rate and rhythm without murmurs, rubs or gallops. RESPIRATORY: Breath sounds equal bilaterally, no wheezes rales or rhonchi. ABDOMEN: Soft, nontender. Normoactive bowel sounds all 4 quadrants. No guarding or rebound, rigidity, no mass : No CVA tenderness EXTREMITIES: Normal range of motion, no clubbing or edema. Neurovascularly intact NEUROLOGICAL: Cranial nerves II through XII grossly intact. Moving all extremities, mild generalized tremor. SKIN: Warm, dry, no petechiae, no rashes or lesions. PSYCH: Suicidal thoughts, no active intent at this time but did have earlier today, no homicidal ideation or intent, no hallucinations. Positive for depression. Initial Vital Signs Initial Vital Signs: Vital Signs Temperature 97.3 F L 09/13/21 12:25 Pulse Rate 68 09/13/21 12:25 Respiratory Rate 17 09/13/21 12:25 Blood Pressure 181/93 H 09/13/21 12:25 Pulse Oximetry 96 09/13/21 12:25 Oxygen Delivery Method 09/13/21 12:25 Course Orders Ordered: Discontinued Medications Lorazepam (Lorazepam 0.5 Mg Tablet) 0.5 mg PO NOW ONE Stop: 09/13/21 13:03 Last Admin: 09/13/21 13:09 Dose: 0.5 mg Documented By: NIMO Lorazepam (Lorazepam 0.5 Mg Tablet) 0.5 mg PO NOW ONE Stop: 09/13/21 17:06 Last Admin: 09/13/21 17:32 Dose: 0.5 mg Documented By: NIMO Quetiapine Fumarate (Quetiapine 25 Mg Tablet) 50 mg PO NOW ONE Stop: 09/13/21 21:04 Last Admin: 09/13/21 21:50 Dose: 50 mg Documented By: EB Reevaluation(s) Reevaluation #1: Patient seen with INVESTMENT MANAGER, patient and family feel he would likely benefit from voluntary placement and I agree with this. If we are unsuccessful with placement tonight plans to board overnight and re-evaluate in the morning. Patient has found lorazepam quite helpful. Time: 17:30 Reevaluation #2: 09/14/21 (Chante): Patient is doing significantly better today. No placement found or available but patient feels safe to return home, feels safe. Discussed counseling resources I spoke with his physician yesterday and plan to do an Ativan as needed which patient found very helpful yesterday. He did get a dose of Seroquel overnight said it was somewhat helpful for sleep but did not seem to make much change in his obsession all thoughts and he found the benzodiazepine more helpful for the short-term. We did discuss return precautions. Patient contracts for safety. Time: 14:31 Consultations Consultation #1: Dr. Rivera, PCP. Is happy to see the patient and help assist him from a mental health perspective we discussed he has follow-up with Urology this coming week. He asked if we can give him a month's worth prescription over lorazepam and he is going to put him on his cancellation list to get him in as soon as possible. Agrees with current plan. Will follow with patient and assist with medication management. Discussed helping patient get assistance with counseling resources and referrals as needed. Time: 15:52 Vital Signs Vital signs: Vital Signs - 8 hr 09/14/21 14:36 Pulse Rate 81 Respiratory Rate 18 Blood Pressure 153/82 H Pulse Oximetry 97 MDM - Psych Lab Data Result diagrams: 09/13/21 12:46 09/13/21 12:46 Labs: Lab Results 09/13/21 09/13/21 09/13/21 Range/Units 12:46 12:46 12:46 WBC 7.8 (4.5-11.0) X10^3/uL RBC 5.34 (4.5-5.9) X10^6/uL Hgb 16.8 (13.5-17.5) g/dL Hct 48.7 (41-53) % MCV 91.3 (80-100) fL MCH 31.4 (26-34) PG MCHC 34.4 (30-36) % RDW 13.1 (11.6-14.8) % Plt Count 214 (150-400) X10^3/uL Neut % (Auto) 59.8 (50-75) % Lymph % (Auto) 26.4 (25-40) % [place] % (Auto) 9.0 (3-14) % Eos % (Auto) 3.6 (2-4) % Baso % (Auto) 1.2 (0-2) % Neut # (Auto) 4700 (5999-0632) /uL Lymph # (Auto) 2100 (3076-3115) /uL [place] # (Auto) 700 (0-900) /uL Eos # (Auto) 300 (0-450) /uL Baso # (Auto) 100 (0-100) /uL Sodium 137 (137-145) mmol/L Potassium 4.6 (3.4-5.1) mmol/L Chloride 104 (98-107) mmol/L Carbon Dioxide 26 (22-32) mmol/L BUN 14 (9-20) mg/dL Creatinine 1.19 (0.66-1.25) mg/dL Estimated GFR > 60 (>60) mL/min BUN/Creatinine Ratio 11.8 (6-22) Glucose 144 H (80-110) mg/dL Calcium 9.4 (8.4-10.2) mg/dL Total Bilirubin 0.6 (0.2-1.3) mg/dL AST 33 (17-59) IU/L ALT 47 (<50) IU/L Alkaline Phosphatase 75 (38-126) U/L Total Protein 7.1 (6.3-8.2) g/dL Albumin 4.5 (3.5-5.0) g/dL Globulin 2.6 (1.7-4.1) g/dL Albumin/Globulin Ratio 1.7 (1.0-2.8) TSH 1.31 (0.47-4.68) uIU/mL Free T4 1.15 (0.78-2.19) ng/dL Urine RBC (0-5/HPF) Urine WBC (0-5/HPF) Urine Bacteria (None) Ur Culture Indicated? Salicylates < 1.0 (<20) mg/dL U Opiates 300ng/mL cut (Negative) Ur Oxycodone Screen (Negative) Urine Methadone Screen (Negative) Acetaminophen < 10 (10-30) ug/mL Ur Barbiturates Screen (Negative) U Tricyclic Antidepress (Negative) Ur Phencyclidine Scrn (Negative) Ur Amphetamines Screen (Negative) U Methamphetamines Scrn (Negative) Ur MDMA Scrn (Ecstasy) (Negative) U Benzodiazepines Scrn (Negative) Urine Cocaine Screen (Negative) U Marijuana (THC) Screen (Negative) Ethyl Alcohol < 10 ( - 10) mg/dL SARS-CoV-2 (PCR) (Negative) 09/13/21 09/13/21 09/13/21 Range/Units 12:55 12:55 12:55 WBC (4.5-11.0) X10^3/uL RBC (4.5-5.9) X10^6/uL Hgb (13.5-17.5) g/dL Hct (41-53) % MCV (80-100) fL MCH (26-34) PG MCHC (30-36) % RDW (11.6-14.8) % Plt Count (150-400) X10^3/uL Neut % (Auto) (50-75) % Lymph % (Auto) (25-40) % [place] % (Auto) (3-14) % Eos % (Auto) (2-4) % Baso % (Auto) (0-2) % Neut # (Auto) (7607-1596) /uL Lymph # (Auto) (6924-9479) /uL [place] # (Auto) (0-900) /uL Eos # (Auto) (0-450) /uL Baso # (Auto) (0-100) /uL Sodium (137-145) mmol/L Potassium (3.4-5.1) mmol/L Chloride (98-107) mmol/L Carbon Dioxide (22-32) mmol/L BUN (9-20) mg/dL Creatinine (0.66-1.25) mg/dL Estimated GFR (>60) mL/min BUN/Creatinine Ratio (6-22) Glucose (80-110) mg/dL Calcium (8.4-10.2) mg/dL Total Bilirubin (0.2-1.3) mg/dL AST (17-59) IU/L ALT (<50) IU/L Alkaline Phosphatase (38-126) U/L Total Protein (6.3-8.2) g/dL Albumin (3.5-5.0) g/dL Globulin (1.7-4.1) g/dL Albumin/Globulin Ratio (1.0-2.8) TSH (0.47-4.68) uIU/mL Free T4 (0.78-2.19) ng/dL Urine RBC None seen (0-5/HPF) Urine WBC None seen (0-5/HPF) Urine Bacteria None seen (None) Ur Culture Indicated? Cult not indicated Salicylates (<20) mg/dL U Opiates 300ng/mL cut Negative (Negative) Ur Oxycodone Screen Negative (Negative) Urine Methadone Screen Negative (Negative) Acetaminophen (10-30) ug/mL Ur Barbiturates Screen Negative (Negative) U Tricyclic Antidepress Negative (Negative) Ur Phencyclidine Scrn Negative (Negative) Ur Amphetamines Screen Negative (Negative) U Methamphetamines Scrn Negative (Negative) Ur MDMA Scrn (Ecstasy) Negative (Negative) U Benzodiazepines Scrn Negative (Negative) Urine Cocaine Screen Negative (Negative) U Marijuana (THC) Screen Negative (Negative) Ethyl Alcohol ( - 10) mg/dL SARS-CoV-2 (PCR) Negative (Negative) Urine Dip Bedside Urine Glucose Negative Bedside Urine Bilirubin - Negative Bedside Urine Ketone - Negative Urine Specific Goldsmith 1.010 Bedside Urine Occult Blood - Negative Bedside Urine pH 6.0 Bedside Urine Protein - Negative Bedside Urine Urobilinogen - Negative Bedside Urine Nitrite - Negative Bedside Urine Leukocytes - Negative Esterase MDM Narrative Medical decision making narrative: 70-year-old male comes with suicidal ideation, patient has chronic medical condition that he has become quite anxious and overwhelmed about. He has follow-up next week but has become more obsessive and after researching last night woke up this morning with significant anxiety feeling overwhelmed and has had suicidal thoughts but had a strong desire to harm himself and felt that in that moment typically he has not because he is concerned about upsetting his family but felt that it would probably still be the most appropriate thing. He did not, he reached out to his and they came here. He has felt improved particularly after a dose of lorazepam but continues to have suicidal ideation although he denies intent at this time. 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 He has had outpatient intensive treatment but never been hospitalized. Patient after discussion with myself in [facility] [facility] elects to seek voluntary placement. Patient is medically cleared. Patient signed out to Dr. Sanders while awaiting possible placement. Patient signed out to myself (09/14/21) Dr. Sharif after boarding overnight. No voluntary beds available. Patient is feeling significantly improved today. He is able to contract for safety, he does not have any suicidal intent even his suicidal ideation feels has improved significantly. Family feels much more comfortable with patient returning home. We discussed options with medication and he feels like this will be very helpful in the short term if he is having increasing anxiety, he had I discussed resources again, for counseling, possible outpatient had some therapy, following up with his urologist uneven support groups for individuals with hemorrhagic radiation cystitis. He had actually looked up and there is a on line check group and I encouraged him to reach out for support as well. Discharge Plan Departure Patient Disposition: Home Clinical Impression: Depression with suicidal ideation, Obsessive thinking Instructions: DI for Suicidal Ideation-Adult Activity Restrictions/Additional Instructions: Follow up with Dr. Rivera, I spoke with him yesterday. He has put you on the cancellation list to get you in as soon as possible to be seen in the office. Please call the office to help set up an appointment and touch base. I would talk with your physician about medication options for OCD or obsessive type thoughts as well. Please follow-up with the resources that Gabby has provided today I think you would benefit from counseling for outpatient intensive treatment. You may take Ativan 1/2 tablet every 8 hours as needed. This medication can make you sleepy do not drive, perform hazardous activities or make any major decisions while taking it. Prescription was sent to [facility] in [place] If you're feeling suicidal or having suicidal thoughts, contact the suicide hotline (this is also a self-referral and resource number for [facility]): . Please call 911 or return at any time if you having thoughts of harming yourself, others, if you feel unsafe or having any other new or worsening symptoms. Prescriptions: New lorazepam [Ativan] 1 mg tablet 0.5 mg PO TID PRN (Reason: anxiety) Qty: 45 0RF No Action (DME) Accu check test strips See Rx Instructions .Route .MEDSUPPLY Qty: 100 11RF Rx Instructions: Use to test blood sugars twice daily (DME) Ultrafine TM-short Pen Needle Bath Fit [id number] See Rx Instructions .Route .MEDSUPPLY Qty: 100 11RF Rx Instructions: Use to inject insulin insulin aspart U-100 [Novolog Flexpen U-100 Insulin] 100 unit/mL (3 mL) insulin pen 15 unit SUBCUT TID Qty: 15 10RF simvastatin 20 mg tablet See Rx Instructions .ROUTE .COMPLEX Qty: 90 2RF Dose Instruction: TAKE 1 TABLET BY MOUTH DAILY Rx Instructions: TAKE 1 TABLET BY MOUTH DAILY losartan 50 mg tablet See Rx Instructions .ROUTE .COMPLEX Qty: 90 3RF Dose Instruction: TAKE 1 TABLET BY MOUTH DAILY Rx Instructions: TAKE 1 TABLET BY MOUTH DAILY bupropion HCl 300 mg tablet extended release 24 hr 300 mg PO DAILY Lantus Solostar U-100 Insulin 100 unit/mL (3 mL) insulin pen 54 unit SUBCUT DAILY aspirin 81 mg tablet,delayed release (DR/EC) 81 mg PO DAILY Referrals: Diego Rivera DO [Primary Care Provider] - Visit Report Forms: Patient Portal/API
--- NOTE | 2021-09-13 17:24 | CM.SWNOTE ---
ED Social Work Note: Patient is 70yo male who presented to ED reporting suicidal ideation with plan and intent to overdose on every medication in my house. Patient reports increasing anxiety over medical diagnosis that has left patient substantially functionally impaired from baseline with ability to sleep, eat, participate in day to day activities. Patient reported he doesn't really care if I go to sleep and don't wake up and, other than in ED setting, is still fearful he would attempt to complete suicide. Patient's at bedside who is also concerned about patient at home stating he gets up in the middle of the night and stays awake surfing the internet reading things that make it all worse. Patient stated he is getting only 1-2 hours nightly of sleep despite using his CPAP machine and has lost approximately 14lbs over past month due to decreased appetite. 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 Patient had a health scare that was treated with some returning side effects from the treatment. Patient is hopeless that his medical condition will improve and frozen by fear that anything he might do physically will make it worse. Patient does not require additional medical treatment or medications for this medical condition. Patient reports taking Bupropion, baby aspirin, blood pressure medication, cholesterol statin, and lantus long lasting injection. Patient is requesting inpatient psychiatric placement for medication stabilization and decrease of SI urges in order to discharge to outpatient counseling resources (he is not currently in services) as this has been helpful in the past. Patient is cooperative and will be medication compliant in inpatient setting. Patient is willing to participate in treatment sessions as required. He is interested in learning coping skills for his overwhelming anxiety and panic attacks as well as medications to assist with MDD and anxiety symptoms. Grover Méndez [facility] SENIOR PROCUREMENT MANAGER - Floor Layer Assessment SENIOR PROCUREMENT MANAGER - Floor Layer Assessment Start: 09/13/21 16:42 Freq: Status: Active Protocol: Document 09/13/21 16:42 SUNNI (Rec: 09/13/21 16:58 SUNNI [id number]) SENIOR PROCUREMENT MANAGER/Floor Layer Assessment Time Spent with Patient Start date 09/13/21 Visit Start Time 16:00 End date 09/13/21 Visit End Time 16:45 Total time Care Management spent on 45 patient visit-in minutes Mental Health Screening Include Onset, Duration, Intensity Presenting Problem Patient presented to ED reporting suicidal ideation with plan to overdose on his medications and intent. Patient was medically cleared by attending prior to assessment commencing. Precipitating Event(s) Patient has had decrease in sleep, increase in anxiety, inability to control anxiety which culminated in suicidal ideation today that scared patient to point he felt he needed to be evaluated. Patient had a panic attack this morning as well that scared him. Patient Strengths Patient is willing to pursue inpatient treatment to stabilize on medications and discharge to outpatient resources for therapeutic intervention for coping skills education Current Behavioral Health Provider(s) none Include Facility, Provider, Ph. # Psych. Hx Mental Health and Chemical Patient has historically Dependency participated in outpatient counseling which has benefited with obsessive/compulsive behaviors and MDD. Patient reports no prior MOSES history. Family Hx of Behavioral Abuse none reported Psychiatric Hospitalizations (date(s)/ none reported location) Psychosocial information & Support Patient resides with his Systems spouse who is supportive. Patient has two adult sons who are supportive and worried about patient. Patient is retired. 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 Legal Concerns Legal Matters - Outstanding Issues none reported Mental Status Orientation (Person/Place/Time) A/O x4 Stated Mood frightened, depressed, anxious Affect (Congruent with Mood?) congruent with mood, tearful Thought Content - Specify/Describe Patient denies a/v Obsessions, Delusions, Hallucinations hallucinations. Patient has obsessive/compulsive behaviors such as picking at scalp, looped thought cycle. No reported or observed delusional thought content. Thought Processes (Drigpcb-Omczmvth-Twrd Patient's thought process is Rtmcbkbu-Czbtcnup-Urdlbyakns- ruminative, logical and linear Rkevmutofbmlzq-Pzvhztp-Jixishnlfzvw- , disorganized by debilitating Thought Blocking) anxiety loops. Speech (Qjewkx-Ffwn-Mkrppsh-Rapid-Soft- stuttered, crying, slow Loud-Pressured) response. Motor (Uajsyz-Fuujlpekp-Hssx-Other) psychomotor activity is agitated with shaking of hands that only decreases with benzo dose in ED setting Insight (Mjoz-Mdwu-Kkte/Limited) good Judgement (Qdqg-Rfva-Wdaq/Limited) fair Impulse Control (Adequate-Impaired) impaired by anxiety and lack of sleep Memory (Atswjnihg-Ugusxb-Dvffjm, intact Impaired-Intact) Concentration (Intact-Impaired) impaired by anxiety and lack of sleep Attention (Intact-Impaired) intact Behavior (Appropriate-Inappropriate) cooperative, appropriate to setting Risk Assessment Suicidal Ideation (Plan) Yes Homicidal Ideation (Plan) No Comment plan and intent to overdose on medication, only subsided in ED setting with benzo dose. Fearful it will return at home . also fearful it will return at home. Intervention Intervention cinder crew worker assessed patient and discussed treatment options with patient and spouse. Patient and spouse both agree that patient is requiring inpatient stabilization at this time. Plan RA Plan SENIOR PROCUREMENT MANAGER will seek inpatient psychiatric placement for patient.
--- NOTE | 2021-09-13 18:16 | CM.SWNOTE ---
Social Work Note: farmworker vegetable contacted [facility]: No beds available today. farmworker vegetable contacted [facility]. Beds available, they can admit pt with CPAP. Clinicals faxed for review. Awaiting screening decision at this time. Grover MOHR
--- NOTE | 2021-09-13 21:00 | PC.NURSE ---
Provider OK with pt taking his home nighttime medications that were verified by this RN. Pt took Lantus dose as well, then pt took his medications home with her when she left for the night.
[2021-09-13 21:25] LABS: Bacteria Urine None Seen; Culture Indicated Urine Cult Not Indicated; RBC Urine None Seen (0-5/HPF); WBC Urine None Seen (0-5/HPF)
[2021-09-13 21:41] VITALS: BP 137/85; PULSE 72; O2SAT 97
[2021-09-13] MEDS: QUETIAPINE 25 MG TABLET 50 MG PO (21:50)
--- NOTE | 2021-09-14 09:32 | PC.NURSE ---
Pt up and moving around. Pt ate breakfast
--- NOTE | 2021-09-14 10:10 | PC.NURSE ---
[facility].
--- NOTE | 2021-09-14 13:00 | CM.SWNOTE ---
PICCOLO MECHANIC Note PICCOLO MECHANIC receives calls from [facility] intake who report they would like to review patient further for medical clearance. PICCOLO MECHANIC enters room to meet with patient and . PICCOLO MECHANIC reviews information from [facility]. Patient endorses that he is feeling much better. Patient denies SI and states that the ativan assisted patient in sleeping and returning to baseline. Patient contracts for safety and states that he will inform his upon such SI thoughts again. Patient endorses some hope for the future with his Urology f/u appt next week, an upcoming f/u appt with Dr. Rivera and states he is interested in MH outpatient. PICCOLO MECHANIC provides patient with lists of MH providers that accept his insurance, [facility] information, and list of crisis contacts. Patient is encouraged to utilize crisis lines and return to ED if symptoms worsen. It is the opinion of this PICCOLO MECHANIC that patient is safe to d/c to home with upon medical clearance. PICCOLO MECHANIC reviews the above with ED provider Dr. Sharif who indicate agreement and understanding. Plan: Patient to d/c to home with , patient to seek out PCP and medical f/u and MH outpatient providers. SALEEM Sherwood
--- NOTE | 2021-09-14 13:01 | PC.NURSE ---
pt to be discharged home with .
[2021-09-14 14:36] VITALS: BP 153/82; PULSE 81; RESP 18; O2SAT 97
== END 2021-09-14 14:36 | disposition home or self-care (01) ==
PROVIDERS: Emergency Provider Emergency Medicine; Family Provider Family Medicine; PCP Family Medicine
DX: R45.851 Suicidal ideations (principal); F32.A Depression, unspecified; F42.8 Other obsessive-compulsive disorder; Z20.822 Contact with and (suspected) exposure to COVID-19
CPT/HCPCS: 36415; 80053; 80305; 80320; 80329; 81003; 81015; 84439; 84443; 85025; 87635; 99284; C9803; G0480

== ENCOUNTER → 2021-09-25 09:31 | Outpatient (CLI) | payer MEDICARE, SELFPAY | PROVIDERS: Family Provider Family Medicine; PCP Family Medicine; Referring Provider Specialist; Visit Provider Family Medicine | DX: L59.8 Other specified disorders of the skin and subcutaneous tissue related to radiation (principal); N30.41 Irradiation cystitis with hematuria; G47.30 Sleep apnea, unspecified; Z92.3 Personal history of irradiation; Z85.46 Personal history of malignant neoplasm of prostate; Z90.79 Acquired absence of other genital organ(s) | CPT/HCPCS: 99212; 99214 ==

== ENCOUNTER → 2021-09-26 11:31 | Outpatient (CLI) | payer MEDICARE, SELFPAY ==
[2021-09-26 12:40] LABS: Hemoglobin A1C% w Est Avg Glu 6.5 % (4.0-6.0)
[2021-09-26 13:05] LABS: Alanine Aminotransferase 48 IU/L (<50); Albumin 4.5 g/dL (3.5-5.0); Albumin Globulin Ratio 1.7 (1.0-2.8); Alkaline Phosphatase 73 U/L (38-126); Aspartate Aminotransferase 34 IU/L (17-59); BUN Creatinine Ratio 13.7 (6-22); Bilirubin Total 0.8 mg/dL (0.2-1.3); Blood Urea Nitrogen 16 mg/dL (9-20); Calcium 9.2 mg/dL (8.4-10.2); Carbon Dioxide 20 mmol/L (22-32); Chloride 107 mmol/L (98-107); Estimated Glomerular Filt Rate > 60 mL/min (>60); Globulin 2.7 g/dL (1.7-4.1); Glucose 148 mg/dL (80-110); HEMOLYSIS 25 (0-50); Potassium 4.8 mmol/L (3.4-5.1); Sodium 137 mmol/L (137-145); Total Protein 7.2 g/dL (6.3-8.2)
== END ==
PROVIDERS: Family Provider Family Medicine; PCP Family Medicine; Referring Provider Family Medicine; Visit Provider Family Medicine
DX: E11.22 Type 2 diabetes mellitus with diabetic chronic kidney disease (principal); E11.42 Type 2 diabetes mellitus with diabetic polyneuropathy; N18.30 Chronic kidney disease, stage 3 unspecified; R74.01 Elevation of levels of liver transaminase levels
CPT/HCPCS: 36415; 80053; 83036

== ENCOUNTER → 2021-09-29 10:25 | Outpatient (CLI) | payer MEDICARE, SELFPAY | PROVIDERS: Family Provider Family Medicine; PCP Family Medicine; Referring Provider Specialist; Visit Provider Nurse Practitioner Family | DX: L59.8 Other specified disorders of the skin and subcutaneous tissue related to radiation (principal); N30.41 Irradiation cystitis with hematuria | CPT/HCPCS: 99183; G0277 ==

== ENCOUNTER → 2021-10-03 14:01 | Outpatient (CLI) | payer MEDICARE, SELFPAY | PROVIDERS: Family Provider Family Medicine; PCP Family Medicine; Referring Provider Specialist; Visit Provider Nurse Practitioner Family | DX: L59.8 Other specified disorders of the skin and subcutaneous tissue related to radiation (principal); N30.41 Irradiation cystitis with hematuria | CPT/HCPCS: 99183; G0277 ==

== ENCOUNTER → 2021-10-04 13:19 | Outpatient (CLI) | payer MEDICARE, SELFPAY | PROVIDERS: Family Provider Family Medicine; PCP Family Medicine; Referring Provider Specialist; Visit Provider Family Medicine | DX: L59.8 Other specified disorders of the skin and subcutaneous tissue related to radiation (principal); N30.41 Irradiation cystitis with hematuria | CPT/HCPCS: 99183; G0277 ==

== ENCOUNTER → 2021-10-05 14:19 | Outpatient (CLI) | payer MEDICARE, SELFPAY | PROVIDERS: Family Provider Family Medicine; PCP Family Medicine; Referring Provider Family Medicine; Visit Provider Family Medicine | DX: L59.8 Other specified disorders of the skin and subcutaneous tissue related to radiation (principal); N30.41 Irradiation cystitis with hematuria | CPT/HCPCS: 99183; G0277 ==

== ENCOUNTER → 2021-10-06 14:47 | Outpatient (CLI) | payer MEDICARE, SELFPAY | PROVIDERS: Family Provider Family Medicine; PCP Family Medicine; Referring Provider Family Medicine; Visit Provider Nurse Practitioner Family | DX: L59.8 Other specified disorders of the skin and subcutaneous tissue related to radiation (principal); N30.41 Irradiation cystitis with hematuria | CPT/HCPCS: 99183; G0277 ==

== ENCOUNTER → 2021-10-09 14:23 | Outpatient (CLI) | payer MEDICARE, SELFPAY | PROVIDERS: Family Provider Family Medicine; PCP Family Medicine; Referring Provider Family Medicine; Visit Provider Family Medicine | DX: L59.8 Other specified disorders of the skin and subcutaneous tissue related to radiation (principal); N30.41 Irradiation cystitis with hematuria | CPT/HCPCS: 99183; G0277 ==

== ENCOUNTER → 2021-10-10 13:10 | Outpatient (CLI) | payer MEDICARE, SELFPAY | PROVIDERS: Family Provider Family Medicine; PCP Family Medicine; Referring Provider Specialist; Visit Provider Family Medicine | DX: L59.8 Other specified disorders of the skin and subcutaneous tissue related to radiation (principal); N30.41 Irradiation cystitis with hematuria | CPT/HCPCS: 99183; G0277 ==

== ENCOUNTER → 2021-10-11 15:22 | Outpatient (CLI) | payer MEDICARE, SELFPAY | PROVIDERS: Family Provider Family Medicine; PCP Family Medicine; Referring Provider Family Medicine; Visit Provider Family Medicine | DX: L59.8 Other specified disorders of the skin and subcutaneous tissue related to radiation (principal); N30.41 Irradiation cystitis with hematuria | CPT/HCPCS: 99183; 99215; G0277 ==

== ENCOUNTER → 2021-10-12 13:23 | Outpatient (CLI) | payer MEDICARE, SELFPAY | PROVIDERS: Family Provider Family Medicine; PCP Family Medicine; Referring Provider Specialist; Visit Provider Family Medicine | DX: L59.8 Other specified disorders of the skin and subcutaneous tissue related to radiation (principal); N30.41 Irradiation cystitis with hematuria | CPT/HCPCS: 99183; G0277 ==

== ENCOUNTER → 2021-10-13 14:13 | Outpatient (CLI) | payer MEDICARE, SELFPAY | PROVIDERS: Family Provider Family Medicine; PCP Family Medicine; Referring Provider Family Medicine; Visit Provider Nurse Practitioner Family | DX: L59.8 Other specified disorders of the skin and subcutaneous tissue related to radiation (principal); N30.41 Irradiation cystitis with hematuria | CPT/HCPCS: 99183; G0277 ==

== ENCOUNTER → 2021-10-17 13:01 | Outpatient (CLI) | payer MEDICARE, SELFPAY | PROVIDERS: Family Provider Family Medicine; PCP Family Medicine; Referring Provider Family Medicine; Visit Provider Family Medicine | DX: L59.8 Other specified disorders of the skin and subcutaneous tissue related to radiation (principal); N30.41 Irradiation cystitis with hematuria | CPT/HCPCS: 99183; G0277 ==

== ENCOUNTER → 2021-10-18 13:22 | Outpatient (CLI) | payer MEDICARE, SELFPAY | PROVIDERS: Family Provider Family Medicine; PCP Family Medicine; Referring Provider Specialist; Visit Provider Family Medicine | DX: L59.8 Other specified disorders of the skin and subcutaneous tissue related to radiation (principal); N30.41 Irradiation cystitis with hematuria | CPT/HCPCS: 99183; G0277 ==

== ENCOUNTER → 2021-10-20 14:10 | Outpatient (CLI) | payer MEDICARE, SELFPAY | PROVIDERS: Family Provider Family Medicine; PCP Family Medicine; Referring Provider Specialist; Visit Provider Family Medicine | DX: L59.8 Other specified disorders of the skin and subcutaneous tissue related to radiation (principal); N30.41 Irradiation cystitis with hematuria | CPT/HCPCS: 99183; G0277 ==

== ENCOUNTER → 2021-10-23 13:06 | Outpatient (CLI) | payer MEDICARE, SELFPAY | PROVIDERS: Family Provider Family Medicine; PCP Family Medicine; Referring Provider Family Medicine; Visit Provider Family Medicine | DX: L59.8 Other specified disorders of the skin and subcutaneous tissue related to radiation (principal); N30.41 Irradiation cystitis with hematuria | CPT/HCPCS: 99183; G0277 ==

== ENCOUNTER → 2021-10-25 14:23 | Outpatient (CLI) | payer MEDICARE, SELFPAY | PROVIDERS: Family Provider Family Medicine; PCP Family Medicine; Referring Provider Specialist; Visit Provider Family Medicine | DX: L59.8 Other specified disorders of the skin and subcutaneous tissue related to radiation (principal); N30.41 Irradiation cystitis with hematuria | CPT/HCPCS: 99183; G0277 ==

== ENCOUNTER → 2021-10-26 13:11 | Outpatient (CLI) | payer MEDICARE, SELFPAY | PROVIDERS: Family Provider Family Medicine; PCP Family Medicine; Referring Provider Specialist; Visit Provider Family Medicine | DX: L59.8 Other specified disorders of the skin and subcutaneous tissue related to radiation (principal); N30.41 Irradiation cystitis with hematuria | CPT/HCPCS: 99183; G0277 ==

== ENCOUNTER → 2021-10-27 13:34 | Outpatient (CLI) | payer MEDICARE, SELFPAY | PROVIDERS: Family Provider Family Medicine; PCP Family Medicine; Referring Provider Family Medicine; Visit Provider Family Medicine | DX: L59.8 Other specified disorders of the skin and subcutaneous tissue related to radiation (principal); N30.41 Irradiation cystitis with hematuria | CPT/HCPCS: 99183; G0277 ==

== ENCOUNTER → 2021-10-31 10:05 | Outpatient (CLI) | payer MEDICARE, SELFPAY | PROVIDERS: Family Provider Family Medicine; PCP Family Medicine; Referring Provider Specialist; Visit Provider Family Medicine | DX: L59.8 Other specified disorders of the skin and subcutaneous tissue related to radiation (principal); N30.41 Irradiation cystitis with hematuria | CPT/HCPCS: 99183; G0277 ==

== ENCOUNTER → 2021-11-01 10:16 | Outpatient (CLI) | payer MEDICARE, SELFPAY | PROVIDERS: Family Provider Family Medicine; PCP Family Medicine; Referring Provider Specialist; Visit Provider Family Medicine | DX: L59.8 Other specified disorders of the skin and subcutaneous tissue related to radiation (principal); N30.41 Irradiation cystitis with hematuria | CPT/HCPCS: 99183; G0277 ==

== ENCOUNTER → 2021-11-02 10:13 | Outpatient (CLI) | payer MEDICARE, SELFPAY | PROVIDERS: Family Provider Family Medicine; PCP Family Medicine; Referring Provider Specialist; Visit Provider Family Medicine | DX: L59.8 Other specified disorders of the skin and subcutaneous tissue related to radiation (principal); N30.41 Irradiation cystitis with hematuria | CPT/HCPCS: 99183; G0277 ==

== ENCOUNTER → 2021-11-06 13:26 | Outpatient (CLI) | payer MEDICARE, SELFPAY | PROVIDERS: Family Provider Family Medicine; PCP Family Medicine; Referring Provider Specialist; Visit Provider Family Medicine | DX: L59.8 Other specified disorders of the skin and subcutaneous tissue related to radiation (principal); N30.41 Irradiation cystitis with hematuria | CPT/HCPCS: 99183; G0277 ==

== ENCOUNTER → 2021-11-07 16:08 | Outpatient (CLI) | payer MEDICARE, SELFPAY | PROVIDERS: Family Provider Family Medicine; PCP Family Medicine; Referring Provider Specialist; Visit Provider Family Medicine | DX: L59.8 Other specified disorders of the skin and subcutaneous tissue related to radiation (principal); N30.41 Irradiation cystitis with hematuria | CPT/HCPCS: 99183; G0277 ==

== ENCOUNTER → 2021-11-10 13:52 | Outpatient (CLI) | payer MEDICARE, SELFPAY | PROVIDERS: Family Provider Family Medicine; PCP Family Medicine; Referring Provider Specialist; Visit Provider Nurse Practitioner Family | DX: L59.8 Other specified disorders of the skin and subcutaneous tissue related to radiation (principal); N30.41 Irradiation cystitis with hematuria | CPT/HCPCS: 99183; G0277 ==

== ENCOUNTER → 2021-11-13 13:36 | Outpatient (CLI) | payer MEDICARE, SELFPAY | PROVIDERS: Family Provider Family Medicine; PCP Family Medicine; Referring Provider Specialist; Visit Provider Family Medicine | DX: L59.8 Other specified disorders of the skin and subcutaneous tissue related to radiation (principal); N30.41 Irradiation cystitis with hematuria | CPT/HCPCS: 99183; G0277 ==

== ENCOUNTER → 2021-11-14 14:24 | Outpatient (CLI) | payer MEDICARE, SELFPAY | PROVIDERS: Family Provider Family Medicine; PCP Family Medicine; Referring Provider Specialist; Visit Provider Family Medicine | DX: L59.8 Other specified disorders of the skin and subcutaneous tissue related to radiation (principal); N30.41 Irradiation cystitis with hematuria | CPT/HCPCS: 99183; G0277 ==

== ENCOUNTER → 2021-11-16 09:17 | Outpatient (CLI) | payer MEDICARE, SELFPAY | PROVIDERS: Family Provider Family Medicine; PCP Family Medicine; Referring Provider Family Medicine; Visit Provider Family Medicine | DX: N30.41 Irradiation cystitis with hematuria (principal); L59.8 Other specified disorders of the skin and subcutaneous tissue related to radiation | CPT/HCPCS: 99183; G0277 ==

== ENCOUNTER → 2021-11-17 11:19 | Outpatient (CLI) | payer MEDICARE, SELFPAY | PROVIDERS: Family Provider Family Medicine; PCP Family Medicine; Referring Provider Specialist; Visit Provider Family Medicine | DX: L59.8 Other specified disorders of the skin and subcutaneous tissue related to radiation (principal); N30.41 Irradiation cystitis with hematuria | CPT/HCPCS: 99183; G0277 ==

== ENCOUNTER → 2021-11-20 13:00 | Outpatient (CLI) | payer MEDICARE, SELFPAY | PROVIDERS: Family Provider Family Medicine; PCP Family Medicine; Referring Provider Specialist; Visit Provider Family Medicine | DX: L59.8 Other specified disorders of the skin and subcutaneous tissue related to radiation (principal); N30.41 Irradiation cystitis with hematuria | CPT/HCPCS: 99183; 99212; 99214; G0277 ==

== ENCOUNTER → 2021-11-21 13:17 | Outpatient (CLI) | payer MEDICARE, SELFPAY | PROVIDERS: Family Provider Family Medicine; PCP Family Medicine; Referring Provider Specialist; Visit Provider Family Medicine | DX: L59.8 Other specified disorders of the skin and subcutaneous tissue related to radiation (principal); N30.41 Irradiation cystitis with hematuria | CPT/HCPCS: 99183; G0277 ==

== ENCOUNTER → 2021-11-23 13:11 | Outpatient (CLI) | payer MEDICARE, SELFPAY | PROVIDERS: Family Provider Family Medicine; PCP Family Medicine; Referring Provider Family Medicine; Visit Provider Family Medicine | DX: L59.8 Other specified disorders of the skin and subcutaneous tissue related to radiation (principal); N30.41 Irradiation cystitis with hematuria | CPT/HCPCS: 99183; G0277 ==

== ENCOUNTER → 2021-12-21 15:29 | Outpatient (CLI) | payer MEDICARE, SELFPAY | PROVIDERS: Family Provider Family Medicine; PCP Family Medicine; Referring Provider Specialist; Visit Provider Family Medicine | DX: L59.8 Other specified disorders of the skin and subcutaneous tissue related to radiation (principal); N30.41 Irradiation cystitis with hematuria | CPT/HCPCS: 99183; G0277 ==

== ENCOUNTER → 2021-12-22 11:17 | Outpatient (CLI) | payer MEDICARE, SELFPAY | PROVIDERS: Family Provider Family Medicine; PCP Family Medicine; Referring Provider Specialist; Visit Provider Nurse Practitioner Family | DX: L59.8 Other specified disorders of the skin and subcutaneous tissue related to radiation (principal); N30.41 Irradiation cystitis with hematuria | CPT/HCPCS: 99183; G0277 ==

== ENCOUNTER → 2021-12-25 14:15 | Outpatient (CLI) | payer MEDICARE, SELFPAY | PROVIDERS: Family Provider Family Medicine; PCP Family Medicine; Referring Provider Specialist; Visit Provider Family Medicine | DX: L59.8 Other specified disorders of the skin and subcutaneous tissue related to radiation (principal); N30.41 Irradiation cystitis with hematuria | CPT/HCPCS: 99183; G0277 ==

== ENCOUNTER → 2021-12-26 13:24 | Outpatient (CLI) | payer MEDICARE, SELFPAY | PROVIDERS: Family Provider Family Medicine; PCP Family Medicine; Referring Provider Specialist; Visit Provider Family Medicine | DX: L59.8 Other specified disorders of the skin and subcutaneous tissue related to radiation (principal); N30.41 Irradiation cystitis with hematuria | CPT/HCPCS: 99183; G0277 ==

== ENCOUNTER → 2021-12-28 14:56 | Outpatient (CLI) | payer MEDICARE, SELFPAY | PROVIDERS: Family Provider Family Medicine; PCP Family Medicine; Referring Provider Specialist; Visit Provider Family Medicine | DX: N30.41 Irradiation cystitis with hematuria (principal); L59.8 Other specified disorders of the skin and subcutaneous tissue related to radiation | CPT/HCPCS: 99183; G0277 ==

== ENCOUNTER → 2021-12-29 14:13 | Outpatient (CLI) | payer MEDICARE, SELFPAY | PROVIDERS: Family Provider Family Medicine; PCP Family Medicine; Referring Provider Specialist; Visit Provider Nurse Practitioner Family | DX: N30.41 Irradiation cystitis with hematuria (principal); L59.8 Other specified disorders of the skin and subcutaneous tissue related to radiation | CPT/HCPCS: 99183; G0277 ==

== ENCOUNTER → 2022-01-01 13:54 | Outpatient (CLI) | payer MEDICARE, SELFPAY | PROVIDERS: Family Provider Family Medicine; PCP Family Medicine; Referring Provider Specialist; Visit Provider Family Medicine | DX: R06.89 Other abnormalities of breathing (principal); L59.8 Other specified disorders of the skin and subcutaneous tissue related to radiation; N30.41 Irradiation cystitis with hematuria; R07.89 Other chest pain; E11.9 Type 2 diabetes mellitus without complications | CPT/HCPCS: 71046; 99183; 99212; 99214; G0277 ==

== ENCOUNTER → 2022-01-01 16:14 | Outpatient (CLI) | payer MEDICARE, SELFPAY ==
--- NOTE | 2022-01-01 16:16 | DI.RAD.S_ITS ---
PROCEDURE: XR CHEST 2V INDICATIONS: post hyperbaric decreased breath sounds RUL TECHNIQUE: 2 views of the chest were acquired. COMPARISON: [facility], CR, XR CHEST 2V, 06/20/2020, 14:08. FINDINGS: Surgical changes and devices: None. Lungs and pleura: Mild basal opacities, possibly atelectasis. No dense consolidation or pleural effusion. Mediastinum: Heart size is at the upper limit of normal. Bones and chest wall: No suspicious bony abnormalities. Soft tissues appear unremarkable. IMPRESSION: Mild basal opacities, possibly atelectasis. No dense consolidation or pleural effusion. Dictated by: Skyler Wells M.D. on 01/01/2022 at 17:24 Approved by: Skyler Wells M.D. on 01/01/2022 at 17:25
== END ==
PROVIDERS: Family Provider Family Medicine; PCP Family Medicine; Referring Provider Family Medicine; Visit Provider Family Medicine
DX: R06.89 Other abnormalities of breathing (principal)
CPT/HCPCS: 71046

== ENCOUNTER → 2022-01-03 12:48 | Outpatient (CLI) | payer MEDICARE, SELFPAY | PROVIDERS: Family Provider Family Medicine; PCP Family Medicine; Referring Provider Specialist; Visit Provider Family Medicine | DX: L59.8 Other specified disorders of the skin and subcutaneous tissue related to radiation (principal); N30.41 Irradiation cystitis with hematuria | CPT/HCPCS: 99183; G0277 ==

== ENCOUNTER → 2022-01-04 14:32 | Outpatient (CLI) | payer MEDICARE, SELFPAY | PROVIDERS: Family Provider Family Medicine; PCP Family Medicine; Referring Provider Specialist; Visit Provider Family Medicine | DX: L59.8 Other specified disorders of the skin and subcutaneous tissue related to radiation (principal); N30.41 Irradiation cystitis with hematuria | CPT/HCPCS: 99183; G0277 ==

== ENCOUNTER → 2022-01-05 14:11 | Outpatient (CLI) | payer MEDICARE, SELFPAY | PROVIDERS: Family Provider Family Medicine; PCP Family Medicine; Referring Provider Specialist; Visit Provider Nurse Practitioner Family | DX: L59.8 Other specified disorders of the skin and subcutaneous tissue related to radiation (principal); N30.41 Irradiation cystitis with hematuria | CPT/HCPCS: 99183; G0277 ==

== ENCOUNTER → 2022-01-26 16:17 | Outpatient (CLI) | payer MEDICARE, SELFPAY ==
--- NOTE | 2022-01-26 16:19 | DI.RAD.S_ITS ---
PROCEDURE: XR CHEST 2V INDICATIONS: Chest discomfort TECHNIQUE: 2 views of the chest were acquired. COMPARISON: [facility], CR, XR CHEST 2V, 01/01/2022, 16:25. FINDINGS: Surgical changes and devices: And Lungs and pleura: Lungs are clear. No pleural effusions or pneumothorax. Mediastinum: Mediastinal contours are normal. Heart size is normal. Bones and chest wall: No suspicious bony abnormalities. Soft tissues appear unremarkable. IMPRESSION: No acute cardiopulmonary findings. Dictated by: Betsey Recio M.D. on 01/26/2022 at 17:24 Approved by: Betsey Recio M.D. on 01/26/2022 at 17:24
== END ==
PROVIDERS: Family Provider Family Medicine; PCP Family Medicine; Referring Provider Family Medicine; Visit Provider Family Medicine
DX: R06.89 Other abnormalities of breathing (principal); J98.11 Atelectasis; R07.89 Other chest pain
CPT/HCPCS: 71046

== ENCOUNTER → 2022-03-30 11:48 | Outpatient (CLI) | payer MEDICARE, SELFPAY ==
[2022-03-30 12:47] LABS: Add Manual Diff / Slide Review NO; Basophils Absolute Auto 100 /uL (0-100); Basophils Percent Auto 1.1 % (0-2); Eosinophils Absolute Auto 500 /uL (0-450); Eosinophils Percent Auto 6.7 % (2-4); Hematocrit 46.7 % (41-53); Lymphocytes Absolute Auto 2000 /uL (1100-4500); Lymphocytes Percent Auto 27.6 % (25-40); Mean Corpuscular HGB Conc 34.3 % (30-36); Mean Corpuscular Hemoglobin 31.7 PG (26-34); Mean Corpuscular Volume 92.5 fL (80-100); Monocytes Absolute Auto 600 /uL (0-900); Monocytes Percent Auto 8.7 % (3-14); Neutrophils Absolute Auto 4100 /uL (1500-7000); Neutrophils Percent Auto 55.9 % (50-75); Platelet Count 207 X10^3/uL (150-400); Red Blood Cell Count 5.05 X10^6/uL (4.5-5.9); Red Cell Distribution Width 12.9 % (11.6-14.8); White Blood Cell Count 7.3 X10^3/uL (4.5-11.0)
[2022-03-30 14:09] LABS: Alanine Aminotransferase 65 IU/L (<50); Albumin 4.2 g/dL (3.5-5.0); Albumin Globulin Ratio 1.7 (1.0-2.8); Alkaline Phosphatase 90 U/L (38-126); Aspartate Aminotransferase 36 IU/L (17-59); BUN Creatinine Ratio 11.7 (6-22); Bilirubin Total 0.5 mg/dL (0.2-1.3); Blood Urea Nitrogen 15 mg/dL (9-20); Calcium 9.1 mg/dL (8.4-10.2); Carbon Dioxide 29 mmol/L (22-32); Chloride 103 mmol/L (98-107); Cholesterol 180 mg/dL (140-199); Estimated Glomerular Filt Rate > 60 mL/min (>60); Globulin 2.5 g/dL (1.7-4.1); Glucose 178 mg/dL (80-110); HDL Cholesterol 44 mg/dL (40-60); HEMOLYSIS < 15 (0-50); LDL Cholesterol Calculated 99 mg/dL (<100); Potassium 4.8 mmol/L (3.4-5.1); Sodium 139 mmol/L (137-145); Total Protein 6.7 g/dL (6.3-8.2); Triglycerides 186 mg/dL (35-150)
[2022-03-30 16:14] LABS: Hemoglobin A1C% w Est Avg Glu 7.6 % (4.0-6.0)
== END ==
PROVIDERS: Family Provider Family Medicine; PCP Family Medicine; Referring Provider Family Medicine; Visit Provider Family Medicine
DX: E11.42 Type 2 diabetes mellitus with diabetic polyneuropathy (principal); E78.00 Pure hypercholesterolemia, unspecified; I10 Essential (primary) hypertension; R74.01 Elevation of levels of liver transaminase levels
CPT/HCPCS: 36415; 80053; 80061; 83036; 85025

== ENCOUNTER 2022-07-07 10:25 | Emergency (ER) | payer MEDICARE, SELFPAY ==
[2022-07-07] VITALS (13 sets, daily range): BP systolic 136–184; BP diastolic 70–92; PULSE 61–87; RESP 12–22; TEMP 37.2; O2SAT 92–99; BMI 39.5
--- NOTE | 2022-07-07 10:39 | ED.MALEGU ---
HPI - Male Genitourinary General Chief complaint: Urogenital-Male Stated complaint: blood in urine Time Seen by Provider: 07/07/22 10:38 History of Present Illness HPI Narrative: Patient is a 71-year-old male history of insulin-dependent diabetes, hyperlipidemia, prostate cancer with TURP with previous hematuria and diagnosed with radiation cystitis he is undergone 2 cycles of hyperbaric chamber treatment for the radiation cystitis. The 1st time was in 2020 he was hematuria free until July 2021 he then had more hyperbaric treatment and has not had any for the last 8 months until yesterday. Yesterday he noted hematuria and blood clots. He has been through this before he knows to drink water reclined in urinate every 15-20 minutes. He reports for the last 19 hours he has been urinating every 15-20 minutes without sleeping. 30 minutes ago he noticed that he was not able to urinate. He is having some pressure build up he is not in severe pain no nausea vomiting. He reports being chilled yesterday he has tremors at baseline. No other symptoms Related Data Previous Rx's Medication Instructions Recorded insulin aspart U-100 100 unit/mL 15 unit (0.15 mL) SUBCUT TID #15 mL 09/29/21 (3 mL) subcutaneous pen (Novolog FlexPen U-100 Insulin aspart) insulin glargine 100 unit/mL (3 54 unit (0.54 mL) SUBCUT DAILY #60 09/29/21 mL) subcutaneous pen (Lantus mL Solostar U-100 Insulin) Accu check test strips #100 ea 11/02/21 bupropion HCl 300 mg 24 hr tablet, 300 mg PO DAILY #90 tabs 11/02/21 extended release simvastatin 20 mg tablet See Rx Instructions .Route 11/02/21 .COMPLEX #90 tabs pen needle, diabetic 31 gauge x #100 ea 12/01/21/16 (BD Ultra-Fine Short Pen Needle) lorazepam 1 mg tablet (Ativan) 0.5 mg PO TID PRN anxiety #45 tabs 01/24/22 losartan 100 mg tablet 100 mg PO DAILY #90 tabs 02/26/22 Allergies Allergy/AdvReac Type Severity Reaction Status Date / Time tree and shrub pollen Allergy Mild Verified 07/07/22 10:42 Review of Systems Review of Systems ROS Unobtainable: All systems reviewed & are unremarkable except as noted in HPI and below Patient History Medical History Allergies (~1977) Anxiety and depression Benign familial tremor (~2004) Chicken pox (~1968) Chronic nasal congestion 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 Colon polyps (~2015) Compulsive overeating Constipation (~2019) Diabetic nephropathy Diverticular disease (~2016) Elevated ALT measurement Erectile dysfunction Fractures Gross hematuria Hearing loss (~2014) Hemorrhoid (~1999) History of nephrolithiasis (~2010) History of urinary incontinence (~2004) HTN (hypertension) Hypercholesterolemia Insomnia HOWARD (obstructive sleep apnea) Peripheral neuropathy (~2015) Prostate cancer (~2002) Radiation cystitis Skin cancer (~2016) Skin tags, multiple acquired Sleep apnea (~2004) Type 2 diabetes mellitus with peripheral neuropathy Upper extremity somatic dysfunction Vitamin D deficiency Wrist pain (~2019) Surgical History Anesthesia H/O cystoscopy H/O prostate biopsy H/O prostatectomy H/O transurethral resection of prostate (~11/2004) H/O vasectomy History of surgery on right wrist (~2000) Family History Father Colon cancer Loud snoring Insomnia Obesity Mother Cancer Family/Other Alcohol abuse Substance abuse Social History marital status: Smoking Status: Never smoker alcohol intake: current Smoking Status: Never smoker alcohol intake frequency: holidays/special occasions only Substance Use Type: does not use Exam Initial Vital Signs Initial Vital Signs: Vital Signs Temperature 98.9 F 07/07/22 10:25 Pulse Rate 87 07/07/22 10:25 Respiratory Rate 12 07/07/22 10:25 Blood Pressure 175/92 H 07/07/22 10:25 Pulse Oximetry 99 07/07/22 10:25 Oxygen Delivery Method Room Air 07/07/22 10:25 GENERAL: Alert 71 male and in no acute distress. HEENT: Head atraumatic,EOMI, pupils reactive, face symmetric, moist mucous membranes CARDIOVASCULAR: Regular rate and rhythm without murmurs, rubs or gallops. RESPIRATORY: Breath sounds equal bilaterally, no wheezes rales or rhonchi. ABDOMEN: Soft, nontender. Normoactive bowel sounds all 4 quadrants. No guarding or rebound. : No CVA tenderness EXTREMITIES: Normal range of motion, no clubbing or edema. Neurovascularly intact NEUROLOGICAL: Alert and oriented x4. SKIN: Warm, dry, no laceration, no petechiae, no rashes or lesions. Course Orders Ordered: ED Orders 07/07/22 10:55 BMP [Basic Metabolic Panel] Stat CBC Auto Diff [Complete Blood Count AUTO DIFF] Stat 07/07/22 11:32 UA Complete [Urinalysis and Microscopic] Stat Discontinued Medications Lidocaine HCl (Lidocaine 2% (Glydo) 6 Ml Gel) 6 ml TOP NOW ONE Stop: 07/07/22 10:39 Last Admin: 07/07/22 11:25 Dose: 6 ml Documented By: JOSHUA Vital Signs Vital signs: Vital Signs - 8 hr 07/07/22 10:25 07/07/22 10:32 07/07/22 10:33 Temperature 98.9 F Pulse Rate 87 87 Respiratory Rate 12 20 Blood Pressure 175/92 H 175/92 H Pulse Oximetry 99 94 Oxygen Delivery Method Room Air Room Air 07/07/22 13:43 07/07/22 13:45 07/07/22 13:45 Temperature Pulse Rate 63 68 Respiratory Rate Blood Pressure 136/79 Pulse Oximetry 95 95 Oxygen Delivery Method MDM - Male Genitourinary Lab Data 07/07/22 10:55 07/07/22 10:55 Labs: Lab Results 07/07/22 07/07/22 07/07/22 Range/Units 10:55 10:55 11:32 WBC 9.1 (4.5-11.0) X10^3/uL RBC 5.19 (4.5-5.9) X10^6/uL Hgb 16.3 (13.5-17.5) g/dL Hct 47.7 (41-53) % MCV 91.9 (80-100) fL MCH 31.4 (26-34) PG MCHC 34.2 (30-36) % RDW 12.8 (11.6-14.8) % Plt Count 208 (150-400) X10^3/uL Neut % (Auto) 70.2 (50-75) % Lymph % (Auto) 18.6 L (25-40) % [place] % (Auto) 8.4 (3-14) % Eos % (Auto) 1.9 L (2-4) % Baso % (Auto) 0.9 (0-2) % Neut # (Auto) 6400 (7735-6545) /uL Lymph # (Auto) 1700 (3881-6311) /uL [place] # (Auto) 800 (0-900) /uL Eos # (Auto) 200 (0-450) /uL Baso # (Auto) 100 (0-100) /uL Sodium 134 L (137-145) mmol/L Potassium 4.2 (3.4-5.1) mmol/L Chloride 104 (98-107) mmol/L Carbon Dioxide 23 (22-32) mmol/L BUN 15 (9-20) mg/dL Creatinine 1.12 (0.66-1.25) mg/dL Estimated GFR > 60 (>60) mL/min BUN/Creatinine Ratio 13.4 (6-22) Glucose 203 H (80-110) mg/dL Calcium 8.9 (8.4-10.2) mg/dL Urine Color Red Urine Appearance Cloudy Urine pH 5.5 (4.5-8.0) Ur Specific [place] 1.020 (1.000-1.035) Urine Protein 2+ H (Negative) Urine Glucose (UA) Negative (Negative) g/dL Urine Ketones 1+ H (NEGATIVE) Urine Occult Blood 3+ H (Negative) Urine Nitrate Negative (Negative) Urine Bilirubin Negative (NEGATIVE) Urine Urobilinogen 0.2 (0.2) E.U./dL Ur Leukocyte Esterase Negative (NEGATIVE) Urine RBC >100/hpf H (0-5/HPF) Urine WBC 0-1/hpf (0-5/HPF) Amorphous Sediment 1+ Urine Bacteria None seen (None) Ur Culture Indicated? Cult not indicated MDM Narrative Medical decision making narrative: Patient is a 71-year-old male with history of prostate cancer and radiation hematuria previously had hyperbaric chamber treatment x2. Presenting today with hematuria and blood clots. Bansal catheter placed no blood clots return mild serosanguineous hematuria without obvious gross blood. No evidence of UTI. Blood work does not show any leukocytosis or anemia. Electrolytes and kidney function within normal limits. Nursing put in Bansal catheter hand irrigated with sterile water no blood clots returned Bansal catheter continue draining. At this time no need for admission recommend following up with Dr. Vidal in restarting hyperbaric chamber treatment again. Vitals are stable and within normal limits. Patient is extremely tired from being up so long and resting currently. Discharge Plan Departure Patient Disposition: Home Clinical Impression: Hematuria Instructions: DI for Hematuria Activity Restrictions/Additional Instructions: *You have been diagnosed with hematuria *What to do: At this time please call Dr. Vidal who will likely need hyperbaric chamber treatment again. Please monitor Bansal for drainage and worsening bleedin *Continue to take medications as directed *Follow up with your primary care provider in 2-3 days or call [phone] *Return to ER if you should have blood clots, darkening blood in Bansal catheter bansal catheter not working or any new, worsening or concerning symptoms Prescriptions: No Action simvastatin 20 mg tablet See Rx Instructions .ROUTE .COMPLEX Qty: 90 2RF Dose Instruction: TAKE 1 TABLET BY MOUTH DAILY Rx Instructions: TAKE 1 TABLET BY MOUTH DAILY (DME) Accu check test strips See Rx Instructions .Route .MEDSUPPLY Qty: 100 11RF Rx Instructions: Use to test blood sugars twice daily bupropion HCl 300 mg tablet extended release 24 hr 300 mg PO DAILY Qty: 90 3RF (DME) pen needle, diabetic [BD Ultra-Fine Short Pen Needle] 31 gauge x 5/16 needle See Rx Instructions .ROUTE .COMPLEX Qty: 100 11RF Dose Instruction: USE TO INJECT INSULIN Rx Instructions: USE TO INJECT INSULIN lorazepam [Ativan] 1 mg tablet 0.5 mg PO TID PRN (Reason: anxiety) Qty: 45 0RF losartan 100 mg tablet 100 mg PO DAILY Qty: 90 3RF Lantus Solostar U-100 Insulin 100 unit/mL (3 mL) insulin pen 54 unit SUBCUT DAILY Qty: 60 3RF insulin aspart U-100 [Novolog FlexPen U-100 Insulin] 100 unit/mL (3 mL) insulin pen 15 unit SUBCUT TID Qty: 15 10RF Referrals: Farshad Rivera DO [Primary Care Provider] - Kristin Vidal MD [Physician] - Stand Alone Forms: Patient Portal/API
[2022-07-07] MEDS: LIDOCAINE 2% (GLYDO) 6 ML GEL TOP (11:25)
[2022-07-07 12:03] LABS: Appearance Urine UA CLOUDY; Bilirubin Urine UA NEGATIVE (NEGATIVE); Color Urine UA RED; Glucose Urine UA NEGATIVE (Negative); Ketones Urine UA 1+ (NEGATIVE); Leukocyte Esterase Urine UA NEGATIVE (NEGATIVE); Nitrite Urine UA NEGATIVE (Negative); Occult Blood Urine UA 3+ (Negative); Protein Urine UA 2+ (Negative); Urobilinogen Urine UA 0.2 E.U./dL (0.2); pH Urine UA 5.5 (4.5-8.0)
[2022-07-07 12:04] LABS: Amorphous Sediment Urine 1+; Bacteria Urine None Seen; Culture Indicated Urine Cult Not Indicated; RBC Urine >100/HPF (0-5/HPF); WBC Urine 0-1/HPF (0-5/HPF)
[2022-07-07 12:45] LABS: Add Manual Diff / Slide Review NO; Basophils Absolute Auto 100 /uL (0-100); Basophils Percent Auto 0.9 % (0-2); Eosinophils Absolute Auto 200 /uL (0-450); Eosinophils Percent Auto 1.9 % (2-4); Hematocrit 47.7 % (41-53); Hemoglobin 16.3 g/dL (13.5-17.5); Lymphocytes Absolute Auto 1700 /uL (1100-4500); Lymphocytes Percent Auto 18.6 % (25-40); Mean Corpuscular HGB Conc 34.2 % (30-36); Mean Corpuscular Hemoglobin 31.4 PG (26-34); Mean Corpuscular Volume 91.9 fL (80-100); Monocytes Absolute Auto 800 /uL (0-900); Monocytes Percent Auto 8.4 % (3-14); Neutrophils Absolute Auto 6400 /uL (1500-7000); Neutrophils Percent Auto 70.2 % (50-75); Platelet Count 208 X10^3/uL (150-400); Red Blood Cell Count 5.19 X10^6/uL (4.5-5.9); Red Cell Distribution Width 12.8 % (11.6-14.8); White Blood Cell Count 9.1 X10^3/uL (4.5-11.0)
[2022-07-07 14:23] LABS: BUN Creatinine Ratio 13.4 (6-22); Blood Urea Nitrogen 15 mg/dL (9-20); Calcium 8.9 mg/dL (8.4-10.2); Carbon Dioxide 23 mmol/L (22-32); Chloride 104 mmol/L (98-107); Estimated Glomerular Filt Rate > 60 mL/min (>60); Glucose 203 mg/dL (80-110); HEMOLYSIS 23 (0-50); Potassium 4.2 mmol/L (3.4-5.1); Sodium 134 mmol/L (137-145)
== END 2022-07-07 16:45 | disposition home or self-care (01) ==
PROVIDERS: Emergency Provider Emergency Medicine; Family Provider Family Medicine; PCP Family Medicine
DX: R31.9 Hematuria, unspecified (principal)
CPT/HCPCS: 36415; 80048; 81001; 85025; 99283; 99284

== ENCOUNTER 2022-07-09 07:07 | Emergency (ER) | payer MEDICARE, SELFPAY ==
[2022-07-09 07:10] VITALS: BP 140/84; PULSE 73; RESP 16; TEMP 36.9; O2SAT 97; BMI 34.4
--- NOTE | 2022-07-09 07:36 | ED.MALEGU ---
HPI - Male Genitourinary General Chief complaint: Urogenital-Male Stated complaint: cathether clogged Time Seen by Provider: 07/09/22 07:21 Source: patient Limitations: no limitations History of Present Illness HPI Narrative: This is a 71-year-old male with history of insulin-dependent diabetes, dyslipidemia, prostate cancer with TURP with history of radiation cystitis who has undergone 2 cycles of hyperbaric chamber treatment in 2020 and July of 2021. Patient was seen on 07/07 for hematuria. Patient had catheterization last 2 days ago, large clot removed urine has been urinating clear but occasionally has spasm and urinates around the calf but clear. Patient has reached out to Dr. Vidal his urologist over the weekend and is waiting to hear back. Patient states he was passing very large clots for about 19 hours before he came in on the , he states after catheter was placed he has since been urinating clear but started having spasm right before he went to urinate and then urine would come around the catheter but not through the catheter since last night. He states the spasm lasts for about 15 seconds and then a large amount of clear urine will pass around the catheter through the urethra. Patient states he has not appreciate any additional clots. He states he did not have any output from the catheter in the last 12 hours but has been urinating regularly overnight around it. Patient states he is not on any daily anticoagulation. Patient denies any fevers. He had some chills. He states he has a baseline tremor. He denies cold cough or congestion. No chest pain or shortness of breath. No nausea or vomiting. He states he is on MiraLax daily and states he has not had as much stool lately. Patient states no known drug allergies. His primary care is Dr. Fitzpatrick. His urologist is Dr. Vidal. He has had hyperbaric locally at [facility] with Dr. Day. Related Data Previous Rx's Medication Instructions Recorded insulin aspart U-100 100 unit/mL 15 unit (0.15 mL) SUBCUT TID #15 mL 09/29/21 (3 mL) subcutaneous pen (Novolog FlexPen U-100 Insulin aspart) insulin glargine 100 unit/mL (3 54 unit (0.54 mL) SUBCUT DAILY #60 09/29/21 mL) subcutaneous pen (Lantus mL Solostar U-100 Insulin) Accu check test strips #100 ea 11/02/21 bupropion HCl 300 mg 24 hr tablet, 300 mg PO DAILY #90 tabs 11/02/21 extended release simvastatin 20 mg tablet See Rx Instructions .Route 11/02/21 .COMPLEX #90 tabs pen needle, diabetic 31 gauge x #100 ea 12/01/21/16 (BD Ultra-Fine Short Pen Needle) lorazepam 1 mg tablet (Ativan) 0.5 mg PO TID PRN anxiety #45 tabs 01/24/22 losartan 100 mg tablet 100 mg PO DAILY #90 tabs 02/26/22 Allergies Allergy/AdvReac Type Severity Reaction Status Date / Time tree and shrub pollen Allergy Mild Verified 07/07/22 10:42 Review of Systems Review of Systems ROS Unobtainable: All systems reviewed & are unremarkable except as noted in HPI and below Patient History Medical History Allergies (~1977) Anxiety and depression Benign familial tremor (~2004) Chicken pox (~1968) Chronic nasal congestion 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 Colon polyps (~2015) Compulsive overeating Constipation (~2019) Diabetic nephropathy Diverticular disease (~2016) Elevated ALT measurement Erectile dysfunction Fractures Gross hematuria Hearing loss (~2014) Hemorrhoid (~1999) History of nephrolithiasis (~2010) History of urinary incontinence (~2004) HTN (hypertension) Hypercholesterolemia Insomnia HOWARD (obstructive sleep apnea) Peripheral neuropathy (~2015) Prostate cancer (~2002) Radiation cystitis Skin cancer (~2016) Skin tags, multiple acquired Sleep apnea (~2004) Type 2 diabetes mellitus with peripheral neuropathy Upper extremity somatic dysfunction Vitamin D deficiency Wrist pain (~2019) Surgical History Anesthesia H/O cystoscopy H/O prostate biopsy H/O prostatectomy H/O transurethral resection of prostate (~11/2004) H/O vasectomy History of surgery on right wrist (~2000) Family History Father Colon cancer Loud snoring Insomnia Obesity Mother Cancer Family/Other Alcohol abuse Substance abuse Social History marital status: Smoking Status: Never smoker alcohol intake: current Smoking Status: Never smoker alcohol intake frequency: holidays/special occasions only Substance Use Type: does not use Exam Narrative Exam Narrative: GENERAL: Alert and oriented x three, male in mild distress. HEENT: Head normocephalic, atraumatic, EOMI, pupils reactive, face symmetric, moist mucous membranes NECK: Supple, full range of motion CARDIOVASCULAR: Regular rate and rhythm without murmurs, rubs or gallops. RESPIRATORY: Breath sounds equal bilaterally, no wheezes rales or rhonchi. ABDOMEN: Soft, nontender. Normoactive bowel sounds all 4 quadrants. No guarding or rebound, rigidity, no mass : No CVA tenderness, Karimi catheter in place there is a very scant amount of clear yellow urine in the bottom of the bag. EXTREMITIES: Normal range of motion, no clubbing or edema. Neurovascularly intact NEUROLOGICAL: Cranial nerves II through XII grossly intact. Moving all extremities SKIN: Warm, dry, no petechiae, no rashes or lesions. Initial Vital Signs Initial Vital Signs: Vital Signs Temperature 98.4 F 07/09/22 07:10 Pulse Rate 73 07/09/22 07:10 Respiratory Rate 16 07/09/22 07:10 Blood Pressure 140/84 07/09/22 07:10 Pulse Oximetry 97 07/09/22 07:10 Oxygen Delivery Method Room Air 07/09/22 07:10 Course Orders Ordered: ED Orders 07/09/22 10:24 UA Complete [Urinalysis and Microscopic] Stat Vital Signs Vital signs: Vital Signs - 8 hr 07/09/22 11:17 Pulse Rate 80 Respiratory Rate 16 Blood Pressure 136/76 Pulse Oximetry 97 Oxygen Delivery Method Room Air MDM - Male Genitourinary Lab Data Labs: Lab Results 07/09/22 Range/Units 10:24 Urine Color Yellow Urine Appearance Clear Urine pH 6.0 (4.5-8.0) Ur Specific Danese 1.025 (1.000-1.035) Urine Protein Negative (Negative) Urine Glucose (UA) Negative (Negative) g/dL Urine Ketones 1+ H (NEGATIVE) Urine Occult Blood 3+ H (Negative) Urine Nitrate Negative (Negative) Urine Bilirubin Negative (NEGATIVE) Urine Urobilinogen 0.2 (0.2) E.U./dL Ur Leukocyte Esterase Negative (NEGATIVE) Urine RBC 1-5/hpf D (0-5/HPF) Urine WBC 0-1/hpf (0-5/HPF) Ur Squamous Epith Cells 0-1 /hpf (0-5/HPF) Urine Bacteria Occasional (0-1) (None) Ur Culture Indicated? Cult not indicated MDM Narrative Medical decision making narrative: Patient presents with complaint of catheter being clogged or malfunctioning. He states he is urinating it appears to be clear around the catheter. He was here 2 days ago for hematuria he has had pretty radiation cystitis in the past and has had 2 hyperbaric treatments the most recent in July of 2021. Patient catheter flushed for nursing but the balloon was not fully inflated they did fully inflated it flushes but when patient attempts to urinate urine comes around the catheter through. Discussed with patient will attempt removal of the catheter and see if patient can urinate without issue. Patient had bladder instill had 1 large but appears to be very old clot with yellow urine. Urine shows blood but no other acute changes. Patient has urinated twice without issue since then. Urine shows blood but no signs of infection. Spoke with Dr. Viadl, urology states if patient is cleared not having persistent issues does not have to start hyperbaric right now but if he is having persistent hematuria he can help patient get set up for referral. Recommend patient continue to use his stool softeners to avoid constipation. Agrees with current plan. Discharge Plan Departure Patient Disposition: Home Clinical Impression: Malfunction of Karimi catheter, Hematuria due to irradiation cystitis Activity Restrictions/Additional Instructions: Please follow-up with Dr. Vidal for referral for Hyperbaric treatments. I hope you have a good week. If you develop worsening blood clots or difficulty with urination please return. Please return for fevers, new or worsening abdominal back or flank pain, persistent vomiting inability to urinate, painful urination or other new or concerning changes. Prescriptions: No Action simvastatin 20 mg tablet See Rx Instructions .ROUTE .COMPLEX Qty: 90 2RF Dose Instruction: TAKE 1 TABLET BY MOUTH DAILY Rx Instructions: TAKE 1 TABLET BY MOUTH DAILY (DME) Accu check test strips See Rx Instructions .Route .MEDSUPPLY Qty: 100 11RF Rx Instructions: Use to test blood sugars twice daily bupropion HCl 300 mg tablet extended release 24 hr 300 mg PO DAILY Qty: 90 3RF (DME) pen needle, diabetic [BD Ultra-Fine Short Pen Needle] 31 gauge x 5/16 needle See Rx Instructions .ROUTE .COMPLEX Qty: 100 11RF Dose Instruction: USE TO INJECT INSULIN Rx Instructions: USE TO INJECT INSULIN lorazepam [Ativan] 1 mg tablet 0.5 mg PO TID PRN (Reason: anxiety) Qty: 45 0RF losartan 100 mg tablet 100 mg PO DAILY Qty: 90 3RF Lantus Solostar U-100 Insulin 100 unit/mL (3 mL) insulin pen 54 unit SUBCUT DAILY Qty: 60 3RF insulin aspart U-100 [Novolog FlexPen U-100 Insulin] 100 unit/mL (3 mL) insulin pen 15 unit SUBCUT TID Qty: 15 10RF Referrals: Kristin Vidal MD [Physician] - Farshad Rivera DO [Primary Care Provider] - Stand Alone Forms: Patient Portal/API
--- NOTE | 2022-07-09 07:42 | PC.NURSE ---
Pt with h/o hemorrhagic radiation cystitis. Was in ED 2 days ago and received a 22F triple lumen cath with CBI. Large clots were removed at that time. pt has been having clear urine since. Last night started with urination around the catheter at the urethra and no urine going into the bag. Pt having spasms and can feel he is urinating around the catheter. Balloon checked and noted to have only 7cc. cath was inserted further into the bladder gently and balloon was reinflated with 10cc sterile water. Cath was then irrigated with 50cc at the CBI port and residual returned was clear yellow urine without clots. About 50 cc sterile water reinstilled and pt started to have what he described as a spasm and urinated around catheter. Dr Sharif made aware.
--- NOTE | 2022-07-09 10:36 | PC.NURSE ---
pt was able to urinate appropriately into urinal after 3 glasses of water and bansal removal. denies pain. urine clear w/o clots. aware. UA sent
[2022-07-09 10:40] LABS: Appearance Urine UA CLEAR; Bilirubin Urine UA NEGATIVE (NEGATIVE); Color Urine UA YELLOW; Glucose Urine UA NEGATIVE (Negative); Ketones Urine UA 1+ (NEGATIVE); Leukocyte Esterase Urine UA NEGATIVE (NEGATIVE); Nitrite Urine UA NEGATIVE (Negative); Occult Blood Urine UA 3+ (Negative); Protein Urine UA NEGATIVE (Negative); Specific Gravity Urine UA 1.025 (1.000-1.035); Urobilinogen Urine UA 0.2 E.U./dL (0.2)
[2022-07-09 10:48] LABS: RBC Urine 1-5/HPF (0-5/HPF)
[2022-07-09 10:49] LABS: Bacteria Urine Occasional (0-1); Culture Indicated Urine Cult Not Indicated; Squamous Epithelial Cell Urine 0-1 /HPF (0-5/HPF); WBC Urine 0-1/HPF (0-5/HPF)
[2022-07-09 11:17] VITALS: BP 136/76; PULSE 80; RESP 16; O2SAT 97
== END 2022-07-09 11:18 | disposition home or self-care (01) ==
PROVIDERS: Emergency Provider Emergency Medicine; Family Provider Family Medicine; PCP Family Medicine
DX: T83.091A Other mechanical complication of indwelling urethral catheter, initial encounter (principal); N30.41 Irradiation cystitis with hematuria
CPT/HCPCS: 81001; 99281; 99282

== ENCOUNTER → 2022-07-25 08:38 | Outpatient (CLI) | payer MEDICARE, SELFPAY | PROVIDERS: Family Provider Family Medicine; PCP Family Medicine; Referring Provider Specialist; Visit Provider Surgery | DX: N30.41 Irradiation cystitis with hematuria (principal); L59.8 Other specified disorders of the skin and subcutaneous tissue related to radiation | CPT/HCPCS: 71046; 99212; 99214 ==

== ENCOUNTER → 2022-07-25 09:02 | Outpatient (CLI) | payer MEDICARE, SELFPAY ==
--- NOTE | 2022-07-25 09:03 | DI.RAD.S_ITS ---
PROCEDURE: XR CHEST 2V INDICATIONS: Eval for HBO TECHNIQUE: 2 views of the chest were acquired. COMPARISON: Located Within [facility], , XR CHEST 2V, 01/26/2022, 16:21. Located Within [facility], CR, XR CHEST 2V, 01/01/2022, 16:25. FINDINGS: Surgical changes and devices: None. Lungs and pleura: Lungs are clear. No pleural effusions or pneumothorax. Mediastinum: Mediastinal contours are normal. Heart size is normal. Bones and chest wall: No suspicious bony abnormalities. Soft tissues appear unremarkable. IMPRESSION: No acute cardiopulmonary abnormality. Dictated by: José Miguel Ayers M.D. on 07/25/2022 at 9:48 Approved by: José Miguel Ayers M.D. on 07/25/2022 at 9:52
== END ==
PROVIDERS: Family Provider Family Medicine; PCP Family Medicine; Referring Provider Surgery; Visit Provider Surgery
DX: N30.41 Irradiation cystitis with hematuria (principal)
CPT/HCPCS: 71046

== ENCOUNTER → 2022-07-26 09:12 | Outpatient (CLI) | payer MEDICARE, SELFPAY ==
[2022-07-26 10:40] LABS: Add Manual Diff / Slide Review NO; Basophils Absolute Auto 100 /uL (0-100); Basophils Percent Auto 1.2 % (0-2); Eosinophils Absolute Auto 400 /uL (0-450); Eosinophils Percent Auto 5.2 % (2-4); Hematocrit 48.4 % (41-53); Hemoglobin 16.4 g/dL (13.5-17.5); Lymphocytes Absolute Auto 2000 /uL (1100-4500); Lymphocytes Percent Auto 25.6 % (25-40); Mean Corpuscular HGB Conc 33.8 % (30-36); Mean Corpuscular Volume 91.7 fL (80-100); Monocytes Absolute Auto 800 /uL (0-900); Monocytes Percent Auto 10.1 % (3-14); Neutrophils Absolute Auto 4500 /uL (1500-7000); Neutrophils Percent Auto 57.9 % (50-75); Platelet Count 223 X10^3/uL (150-400); Red Blood Cell Count 5.28 X10^6/uL (4.5-5.9); Red Cell Distribution Width 13.2 % (11.6-14.8); White Blood Cell Count 7.8 X10^3/uL (4.5-11.0)
[2022-07-26 11:44] LABS: Alanine Aminotransferase 48 IU/L (<50); Albumin 4.1 g/dL (3.5-5.0); Albumin Globulin Ratio 1.6 (1.0-2.8); Alkaline Phosphatase 83 U/L (38-126); Aspartate Aminotransferase 31 IU/L (17-59); BUN Creatinine Ratio 17.5 (6-22); Bilirubin Total 0.6 mg/dL (0.2-1.3); Blood Urea Nitrogen 21 mg/dL (9-20); Carbon Dioxide 26 mmol/L (22-32); Chloride 105 mmol/L (98-107); Cholesterol 188 mg/dL (140-199); Estimated Glomerular Filt Rate > 60 mL/min (>60); Globulin 2.6 g/dL (1.7-4.1); Glucose 161 mg/dL (80-110); HDL Cholesterol 44 mg/dL (40-60); HEMOLYSIS < 15 (0-50); LDL Cholesterol Calculated 105 mg/dL (<100); Potassium 4.7 mmol/L (3.4-5.1); Sodium 139 mmol/L (137-145); Total Protein 6.7 g/dL (6.3-8.2); Triglycerides 195 mg/dL (35-150)
[2022-07-26 12:08] LABS: Prostate Specific Antigen < 0.064 ng/mL (0.10-4.00)
[2022-07-27 05:14] LABS: x Labcorp Estim. Avg Glu (eAG) 171 mg/dL (.); x Labcorp Hemoglobin A1c 7.6 % (4.8-5.6)
== END ==
PROVIDERS: Family Provider Family Medicine; PCP Family Medicine; Referring Provider Family Medicine; Visit Provider Family Medicine
DX: Z85.46 Personal history of malignant neoplasm of prostate; E11.21 Type 2 diabetes mellitus with diabetic nephropathy; E11.42 Type 2 diabetes mellitus with diabetic polyneuropathy; E78.00 Pure hypercholesterolemia, unspecified; I10 Essential (primary) hypertension; K57.90 Diverticulosis of intestine, part unspecified, without perforation or abscess without bleeding; R74.01 Elevation of levels of liver transaminase levels
CPT/HCPCS: 36415; 80053; 80061; 83036; 84153; 85025

== ENCOUNTER → 2022-07-30 13:36 | Outpatient (CLI) | payer MEDICARE, SELFPAY | PROVIDERS: Family Provider Family Medicine; PCP Family Medicine; Referring Provider Specialist; Visit Provider Surgery | DX: L59.8 Other specified disorders of the skin and subcutaneous tissue related to radiation (principal); N30.41 Irradiation cystitis with hematuria | CPT/HCPCS: 99183; G0277 ==

== ENCOUNTER → 2022-07-31 10:53 | Outpatient (CLI) | payer MEDICARE, SELFPAY | PROVIDERS: Family Provider Family Medicine; PCP Family Medicine; Referring Provider Specialist; Visit Provider Surgery | DX: L59.8 Other specified disorders of the skin and subcutaneous tissue related to radiation (principal); N30.41 Irradiation cystitis with hematuria | CPT/HCPCS: 99183; G0277 ==

== ENCOUNTER → 2022-08-01 12:54 | Outpatient (CLI) | payer MEDICARE, SELFPAY | PROVIDERS: Family Provider Family Medicine; PCP Family Medicine; Referring Provider Specialist; Visit Provider Surgery | DX: L59.8 Other specified disorders of the skin and subcutaneous tissue related to radiation (principal); N30.41 Irradiation cystitis with hematuria | CPT/HCPCS: 99183; G0277 ==

== ENCOUNTER → 2022-08-02 10:47 | Outpatient (CLI) | payer MEDICARE, SELFPAY | PROVIDERS: Family Provider Family Medicine; PCP Family Medicine; Referring Provider Specialist; Visit Provider Surgery | DX: L59.8 Other specified disorders of the skin and subcutaneous tissue related to radiation (principal); N30.41 Irradiation cystitis with hematuria | CPT/HCPCS: 99183; G0277 ==

== ENCOUNTER → 2022-08-03 11:09 | Outpatient (CLI) | payer MEDICARE, SELFPAY | PROVIDERS: Family Provider Family Medicine; PCP Family Medicine; Referring Provider Nurse Practitioner; Visit Provider Nurse Practitioner Family | DX: L59.8 Other specified disorders of the skin and subcutaneous tissue related to radiation (principal); N30.41 Irradiation cystitis with hematuria | CPT/HCPCS: 99183; G0277 ==

== ENCOUNTER → 2022-08-06 10:48 | Outpatient (CLI) | payer MEDICARE, SELFPAY | PROVIDERS: Family Provider Family Medicine; PCP Family Medicine; Referring Provider Specialist; Visit Provider Surgery | DX: L59.8 Other specified disorders of the skin and subcutaneous tissue related to radiation (principal); N30.41 Irradiation cystitis with hematuria | CPT/HCPCS: 99183; G0277 ==

== ENCOUNTER → 2022-08-07 10:52 | Outpatient (CLI) | payer MEDICARE, SELFPAY | PROVIDERS: Family Provider Family Medicine; PCP Family Medicine; Referring Provider Specialist; Visit Provider Surgery | DX: L59.8 Other specified disorders of the skin and subcutaneous tissue related to radiation (principal); N30.41 Irradiation cystitis with hematuria | CPT/HCPCS: 99183; G0277 ==

== ENCOUNTER → 2022-08-08 15:34 | Outpatient (CLI) | payer MEDICARE, SELFPAY | PROVIDERS: Family Provider Family Medicine; PCP Family Medicine; Referring Provider Specialist; Visit Provider Nurse Practitioner Family | DX: L59.8 Other specified disorders of the skin and subcutaneous tissue related to radiation (principal); N30.41 Irradiation cystitis with hematuria | CPT/HCPCS: 99183; G0277 ==

== ENCOUNTER → 2022-08-09 10:48 | Outpatient (CLI) | payer MEDICARE, SELFPAY | PROVIDERS: Family Provider Family Medicine; PCP Family Medicine; Referring Provider Specialist; Visit Provider Surgery | DX: L59.8 Other specified disorders of the skin and subcutaneous tissue related to radiation (principal); N30.41 Irradiation cystitis with hematuria | CPT/HCPCS: 99183; G0277 ==

== ENCOUNTER → 2022-08-10 11:16 | Outpatient (CLI) | payer MEDICARE, SELFPAY | PROVIDERS: Family Provider Family Medicine; PCP Family Medicine; Referring Provider Specialist; Visit Provider Nurse Practitioner Family | DX: L59.8 Other specified disorders of the skin and subcutaneous tissue related to radiation (principal); N30.41 Irradiation cystitis with hematuria | CPT/HCPCS: 99183; G0277 ==

== ENCOUNTER → 2022-08-13 11:23 | Outpatient (CLI) | payer MEDICARE, SELFPAY | PROVIDERS: Family Provider Family Medicine; PCP Family Medicine; Referring Provider Specialist; Visit Provider Surgery | DX: L59.8 Other specified disorders of the skin and subcutaneous tissue related to radiation (principal); N30.41 Irradiation cystitis with hematuria | CPT/HCPCS: 99183; G0277 ==

== ENCOUNTER → 2022-08-14 10:51 | Outpatient (CLI) | payer MEDICARE, SELFPAY | PROVIDERS: Family Provider Family Medicine; PCP Family Medicine; Referring Provider Specialist; Visit Provider Surgery | DX: L59.8 Other specified disorders of the skin and subcutaneous tissue related to radiation (principal); N30.41 Irradiation cystitis with hematuria | CPT/HCPCS: 99183; G0277 ==

== ENCOUNTER → 2022-08-15 11:00 | Outpatient (CLI) | payer MEDICARE, SELFPAY | PROVIDERS: Family Provider Family Medicine; PCP Family Medicine; Referring Provider Specialist; Visit Provider Surgery | DX: L59.8 Other specified disorders of the skin and subcutaneous tissue related to radiation (principal); N30.41 Irradiation cystitis with hematuria | CPT/HCPCS: 99183; G0277 ==

== ENCOUNTER → 2022-08-16 10:52 | Outpatient (CLI) | payer MEDICARE, SELFPAY | PROVIDERS: Family Provider Family Medicine; PCP Family Medicine; Referring Provider Specialist; Visit Provider Surgery | DX: L59.8 Other specified disorders of the skin and subcutaneous tissue related to radiation (principal); N30.41 Irradiation cystitis with hematuria | CPT/HCPCS: 99183; G0277 ==

== ENCOUNTER → 2022-08-17 11:42 | Outpatient (CLI) | payer MEDICARE, SELFPAY | PROVIDERS: Family Provider Family Medicine; PCP Family Medicine; Referring Provider Specialist; Visit Provider Nurse Practitioner Family | DX: L59.8 Other specified disorders of the skin and subcutaneous tissue related to radiation (principal); N30.41 Irradiation cystitis with hematuria | CPT/HCPCS: 99183; G0277 ==

== ENCOUNTER → 2022-08-20 15:04 | Outpatient (CLI) | payer MEDICARE, SELFPAY | PROVIDERS: Family Provider Family Medicine; PCP Family Medicine; Referring Provider Family Medicine; Visit Provider Surgery | DX: L59.8 Other specified disorders of the skin and subcutaneous tissue related to radiation (principal); N30.41 Irradiation cystitis with hematuria | CPT/HCPCS: 99183; G0277 ==

== ENCOUNTER → 2022-08-21 11:21 | Outpatient (CLI) | payer MEDICARE, SELFPAY | PROVIDERS: Family Provider Family Medicine; PCP Family Medicine; Referring Provider Specialist; Visit Provider Surgery | DX: L59.8 Other specified disorders of the skin and subcutaneous tissue related to radiation (principal); N30.41 Irradiation cystitis with hematuria | CPT/HCPCS: 99183; G0277 ==

== ENCOUNTER → 2022-08-22 10:45 | Outpatient (CLI) | payer MEDICARE, SELFPAY | PROVIDERS: Family Provider Family Medicine; PCP Family Medicine; Referring Provider Specialist; Visit Provider Surgery | DX: L59.8 Other specified disorders of the skin and subcutaneous tissue related to radiation (principal); N30.41 Irradiation cystitis with hematuria | CPT/HCPCS: 99183; G0277 ==

== ENCOUNTER → 2022-08-23 10:49 | Outpatient (CLI) | payer MEDICARE, SELFPAY | PROVIDERS: Family Provider Family Medicine; PCP Family Medicine; Referring Provider Specialist; Visit Provider Surgery | DX: L59.8 Other specified disorders of the skin and subcutaneous tissue related to radiation (principal); N30.41 Irradiation cystitis with hematuria | CPT/HCPCS: 99183; G0277 ==

== ENCOUNTER → 2022-08-24 10:39 | Outpatient (CLI) | payer MEDICARE, SELFPAY | PROVIDERS: Family Provider Family Medicine; PCP Family Medicine; Referring Provider Specialist; Visit Provider Nurse Practitioner Family | DX: L59.8 Other specified disorders of the skin and subcutaneous tissue related to radiation (principal); N30.41 Irradiation cystitis with hematuria | CPT/HCPCS: 99183; G0277 ==

== ENCOUNTER → 2022-08-27 11:24 | Outpatient (CLI) | payer MEDICARE, SELFPAY | PROVIDERS: Family Provider Family Medicine; PCP Family Medicine; Referring Provider Family Medicine; Visit Provider Surgery | DX: N30.41 Irradiation cystitis with hematuria (principal); L59.8 Other specified disorders of the skin and subcutaneous tissue related to radiation | CPT/HCPCS: 99183; G0277 ==

== ENCOUNTER → 2022-08-28 11:21 | Outpatient (CLI) | payer MEDICARE, SELFPAY | PROVIDERS: Family Provider Family Medicine; PCP Family Medicine; Referring Provider Urology; Visit Provider Surgery | DX: L59.8 Other specified disorders of the skin and subcutaneous tissue related to radiation (principal); N30.41 Irradiation cystitis with hematuria | CPT/HCPCS: 99183; G0277 ==

== ENCOUNTER → 2022-08-29 14:09 | Outpatient (CLI) | payer MEDICARE, SELFPAY | PROVIDERS: Family Provider Family Medicine; PCP Family Medicine; Referring Provider Specialist; Visit Provider Surgery | DX: L59.8 Other specified disorders of the skin and subcutaneous tissue related to radiation (principal); N30.41 Irradiation cystitis with hematuria | CPT/HCPCS: 99183; 99213; G0277 ==

== ENCOUNTER → 2022-08-30 10:48 | Outpatient (CLI) | payer MEDICARE, SELFPAY | PROVIDERS: Family Provider Family Medicine; PCP Family Medicine; Referring Provider Specialist; Visit Provider Surgery | DX: N30.41 Irradiation cystitis with hematuria (principal) | CPT/HCPCS: 99183; G0277 ==

== ENCOUNTER → 2022-08-31 11:23 | Outpatient (CLI) | payer MEDICARE, SELFPAY | PROVIDERS: Family Provider Family Medicine; PCP Family Medicine; Referring Provider Specialist; Visit Provider Physician Assistant | DX: L59.8 Other specified disorders of the skin and subcutaneous tissue related to radiation (principal); N30.41 Irradiation cystitis with hematuria | CPT/HCPCS: 99183; G0277 ==

== ENCOUNTER → 2022-09-03 11:02 | Outpatient (CLI) | payer MEDICARE, SELFPAY | PROVIDERS: Family Provider Family Medicine; PCP Family Medicine; Referring Provider Urology; Visit Provider Surgery | DX: L59.8 Other specified disorders of the skin and subcutaneous tissue related to radiation (principal); N30.41 Irradiation cystitis with hematuria | CPT/HCPCS: 99183; G0277 ==

== ENCOUNTER → 2022-09-04 11:08 | Outpatient (CLI) | payer MEDICARE, SELFPAY | PROVIDERS: Family Provider Family Medicine; PCP Family Medicine; Referring Provider Specialist; Visit Provider Surgery | DX: L59.8 Other specified disorders of the skin and subcutaneous tissue related to radiation (principal); N30.41 Irradiation cystitis with hematuria | CPT/HCPCS: 99183; G0277 ==

== ENCOUNTER → 2022-09-05 11:44 | Outpatient (CLI) | payer MEDICARE, SELFPAY | PROVIDERS: Family Provider Family Medicine; PCP Family Medicine; Referring Provider Specialist; Visit Provider Surgery | DX: L59.8 Other specified disorders of the skin and subcutaneous tissue related to radiation (principal); N30.41 Irradiation cystitis with hematuria | CPT/HCPCS: 99183; G0277 ==

== ENCOUNTER → 2022-09-11 11:42 | Outpatient (CLI) | payer MEDICARE, SELFPAY | PROVIDERS: Family Provider Family Medicine; PCP Family Medicine; Referring Provider Specialist; Visit Provider Surgery | DX: E11.42 Type 2 diabetes mellitus with diabetic polyneuropathy (principal); Z79.4 Long term (current) use of insulin; Z71.3 Dietary counseling and surveillance; L59.8 Other specified disorders of the skin and subcutaneous tissue related to radiation; N30.41 Irradiation cystitis with hematuria | CPT/HCPCS: 99183; G0108; G0277 ==

== ENCOUNTER → 2022-09-11 14:40 | Outpatient (CLI) | payer MEDICARE, SELFPAY ==
--- NOTE | 2022-09-14 16:30 | DIAB.INIT ---
Initial Diabetes Education Assessment Name: Davey Mast) Date: 09/11/22 Time: 305-796p Dx: Type II Diabetes Provider: Miguel Omega presents today for initial DM visit and CGM education. States his provider would like for him to trial a CGM. After discussing options, he is interested in the [employer] [place] 2 CGM system. States he is currently taking 58u Levemir HS and 15-20u Aspart with meals 2-3x per day. Currently attends wound care appointments with hyperbaric treatments Last HgA1c 7.6% in 03/2022 and 07/2022, increased from 6.5% in 09/2021 Today he had difficulty with CGM roman sign-up. Will return for follow-up this week to complete CGM education and placement. Self-Monitoring Blood Glucose: Reports FBG often in the 150-190s. Experiencing hypoglycemia symptoms with a BG under 90mg/dl. 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 Colon polyps (~2015) Compulsive overeating Constipation (~2019) Severe Diabetic nephropathy Diverticular disease (~2016) Elevated ALT measurement Erectile dysfunction Excessive cerumen in both ear canals Fractures Wrist 2017/ankle 2018 Gross hematuria Hearing loss (~2014) Hemorrhoid (~1999) History of nephrolithiasis (~2010) History of urinary incontinence (~2004) After prostate surgery HTN (hypertension) Hypercholesterolemia Insomnia HOWARD (obstructive sleep apnea) Peripheral neuropathy (~2015) Feet Prostate cancer (~2002) Radiation cystitis Skin cancer (~2016) Skin tags, multiple acquired Sleep apnea (~2004) Type 2 diabetes mellitus with peripheral neuropathy Upper extremity somatic dysfunction Vitamin D deficiency Wrist pain (~2019) Right wrist intermittent pain, at times severe Intervention: This participant was very receptive. Provided appropriate educational handouts. Discussed the following topics: Completed intake assessment. HgA1c trends and rationale for goal Medication regimen and BG trends Different CGM systems and options BG and wound healing Created SMART goals for patient self-care and success. Goals: Sign up for FSL2 for CGM placement Follow-up: FLORENCIO JACKSON follow-up in 3-7 days Yojana Nichols RDN, [facility] Certified Diabetes Care and Block Hand P: [phone] Thank you for this referral
== END ==
PROVIDERS: Absent Provider Family Medicine; Family Provider Family Medicine; PCP Family Medicine; Referring Provider Family Medicine; Visit Provider Family Medicine
DX: E11.42 Type 2 diabetes mellitus with diabetic polyneuropathy (principal); Z79.4 Long term (current) use of insulin; Z71.3 Dietary counseling and surveillance
CPT/HCPCS: G0108

== ENCOUNTER → 2022-09-12 11:21 | Outpatient (CLI) | payer MEDICARE, SELFPAY | PROVIDERS: Family Provider Family Medicine; PCP Family Medicine; Referring Provider Specialist; Visit Provider Surgery | DX: L59.8 Other specified disorders of the skin and subcutaneous tissue related to radiation (principal); N30.41 Irradiation cystitis with hematuria | CPT/HCPCS: 99183; G0277 ==

== ENCOUNTER → 2022-09-13 11:55 | Outpatient (CLI) | payer MEDICARE, SELFPAY | PROVIDERS: Family Provider Family Medicine; PCP Family Medicine; Referring Provider Specialist; Visit Provider Surgery | DX: L59.8 Other specified disorders of the skin and subcutaneous tissue related to radiation (principal); N30.41 Irradiation cystitis with hematuria | CPT/HCPCS: 99183; G0277 ==

== ENCOUNTER → 2022-09-14 09:30 | Outpatient (CLI) | payer MEDICARE, SELFPAY ==
--- NOTE | 2022-09-14 16:36 | DIAB.FU ---
Addendum entered by Yojana Nichols 09/19/22 16:58: Today provided a new sensor due to sensor failure during last trial after one day. Pt will return for f/u as scheduled. Original Note: Follow-up Diabetes Education Assessment Name: Davey Mast) Date: 09/14/22 Time: 930-10a Dx: Type II Diabetes Provider: Miguel Duff presents today for DM visit and CGM education. No change in insulin regimen. Has questions regarding CGM results, use, and BG goals. Self-Monitoring Blood Glucose: Last visit reported FBG often in the 150-190s. Experiencing hypoglycemia symptoms with a BG under 90mg/dl. 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 Colon polyps (~2015) Compulsive overeating Constipation (~2019) Severe Diabetic nephropathy Diverticular disease (~2016) Elevated ALT measurement Erectile dysfunction Excessive cerumen in both ear canals Fractures Wrist 2017/ankle 2018 Gross hematuria Hearing loss (~2014) Hemorrhoid (~1999) History of nephrolithiasis (~2010) History of urinary incontinence (~2004) After prostate surgery HTN (hypertension) Hypercholesterolemia Insomnia HOWARD (obstructive sleep apnea) Peripheral neuropathy (~2015) Feet Prostate cancer (~2002) Radiation cystitis Skin cancer (~2016) Skin tags, multiple acquired Sleep apnea (~2004) Type 2 diabetes mellitus with peripheral neuropathy Upper extremity somatic dysfunction Vitamin D deficiency Wrist pain (~2019) Right wrist intermittent pain, at times severe Intervention: This participant was very receptive. Provided appropriate educational handouts. Discussed the following topics: Discussed BG goals CGM use, precautions, and self-placement Discussed treatment decisions utilizing CGM vs SMBG Reviewed tx for lows Created SMART goals for patient self-care and success. Goals: Sign up for FSL2 for CGM placement - met Trial CGM and email [facility] in one week - new Follow-up: FLORENCIO JACKSON follow-up in 2 weeks Yojana Nichols RDN, [facility] Certified Diabetes Care and [employer]isher P: [phone] Thank you for this referral
== END ==
PROVIDERS: Family Provider Family Medicine; PCP Family Medicine; Referring Provider Family Medicine; Visit Provider Family Medicine
DX: E11.9 Type 2 diabetes mellitus without complications (principal); Z79.4 Long term (current) use of insulin; Z71.3 Dietary counseling and surveillance
CPT/HCPCS: G0108

== ENCOUNTER → 2022-09-14 11:01 | Outpatient (CLI) | payer MEDICARE, SELFPAY | PROVIDERS: Family Provider Family Medicine; PCP Family Medicine; Referring Provider Family Medicine; Visit Provider Physician Assistant | DX: E11.9 Type 2 diabetes mellitus without complications (principal); Z79.4 Long term (current) use of insulin; Z71.3 Dietary counseling and surveillance; L59.8 Other specified disorders of the skin and subcutaneous tissue related to radiation; N30.41 Irradiation cystitis with hematuria | CPT/HCPCS: 99183; G0108; G0277 ==

== ENCOUNTER → 2022-09-17 11:20 | Outpatient (CLI) | payer MEDICARE, SELFPAY | PROVIDERS: Family Provider Family Medicine; PCP Family Medicine; Referring Provider Specialist; Visit Provider Surgery | DX: L59.8 Other specified disorders of the skin and subcutaneous tissue related to radiation (principal); N30.41 Irradiation cystitis with hematuria | CPT/HCPCS: 99183; G0277 ==

== ENCOUNTER → 2022-09-18 10:53 | Outpatient (CLI) | payer MEDICARE, SELFPAY | PROVIDERS: Family Provider Family Medicine; PCP Family Medicine; Referring Provider Specialist; Visit Provider Surgery | DX: L59.8 Other specified disorders of the skin and subcutaneous tissue related to radiation (principal); N30.41 Irradiation cystitis with hematuria | CPT/HCPCS: 99183; G0277 ==

== ENCOUNTER → 2022-09-19 10:54 | Outpatient (CLI) | payer MEDICARE, SELFPAY | PROVIDERS: Family Provider Family Medicine; PCP Family Medicine; Referring Provider Specialist; Visit Provider Surgery | DX: L59.8 Other specified disorders of the skin and subcutaneous tissue related to radiation (principal); N30.41 Irradiation cystitis with hematuria | CPT/HCPCS: 99183; G0277 ==

== ENCOUNTER → 2022-09-20 10:25 | Outpatient (CLI) | payer MEDICARE, SELFPAY | PROVIDERS: Family Provider Family Medicine; PCP Family Medicine; Referring Provider Family Medicine; Visit Provider Surgery | DX: L59.8 Other specified disorders of the skin and subcutaneous tissue related to radiation (principal); N30.41 Irradiation cystitis with hematuria | CPT/HCPCS: 99183; 99211; 99213; G0277 ==

== ENCOUNTER → 2022-09-21 09:30 | Outpatient (CLI) | payer MEDICARE, SELFPAY | PROVIDERS: Family Provider Family Medicine; PCP Family Medicine; Referring Provider Specialist; Visit Provider Physician Assistant | DX: L59.8 Other specified disorders of the skin and subcutaneous tissue related to radiation (principal); N30.41 Irradiation cystitis with hematuria | CPT/HCPCS: 99183; G0277 ==

== ENCOUNTER → 2022-09-25 11:42 | Outpatient (CLI) | payer MEDICARE, SELFPAY | PROVIDERS: Family Provider Family Medicine; PCP Family Medicine; Referring Provider Specialist; Visit Provider Surgery | DX: L59.8 Other specified disorders of the skin and subcutaneous tissue related to radiation (principal); N30.41 Irradiation cystitis with hematuria | CPT/HCPCS: 99183; G0277 ==

== ENCOUNTER → 2022-09-26 10:49 | Outpatient (CLI) | payer MEDICARE, SELFPAY | PROVIDERS: Family Provider Family Medicine; PCP Family Medicine; Referring Provider Specialist; Visit Provider Surgery | DX: L59.8 Other specified disorders of the skin and subcutaneous tissue related to radiation (principal); N30.41 Irradiation cystitis with hematuria | CPT/HCPCS: 99183; G0277 ==

== ENCOUNTER → 2022-09-27 10:50 | Outpatient (CLI) | payer MEDICARE, SELFPAY | PROVIDERS: Family Provider Family Medicine; PCP Family Medicine; Referring Provider Specialist; Visit Provider Surgery | DX: L59.8 Other specified disorders of the skin and subcutaneous tissue related to radiation (principal); N30.41 Irradiation cystitis with hematuria | CPT/HCPCS: 99183; G0277 ==

== ENCOUNTER → 2022-09-28 09:16 | Outpatient (CLI) | payer MEDICARE, SELFPAY ==
--- NOTE | 2022-09-28 10:16 | DIAB.FU ---
Follow-up Diabetes Education Assessment Name: Davey Mast V (Omega) Date: 09/28/22 Time: 930-10a Dx: Type II Diabetes Provider: Miguel Duff presents for DM follow-up. Reports increasing insulin due to elevations detected in CGM and confirmed with some finger sticks. Has questions regarding increasing needs for insulin r/t recent weight gain and other potential factors. Historically feels hypoglycemia even at 90mg/dl. Twice in his life he has had a BG just <70 mg/dl. Treated with OJ and cookies. Reports h/o Levemir dose at 70+ units HS. Has self adjusted down over time. Self-Monitoring Blood Glucose: CGm reports indicate elevations over night and fasting. 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 Colon polyps (~2015) Compulsive overeating Constipation (~2019) Severe Diabetic nephropathy Diverticular disease (~2016) Elevated ALT measurement Erectile dysfunction Excessive cerumen in both ear canals Fractures Wrist 2017/ankle 2018 Gross hematuria Hearing loss (~2014) Hemorrhoid (~1999) History of nephrolithiasis (~2010) History of urinary incontinence (~2004) After prostate surgery HTN (hypertension) Hypercholesterolemia Insomnia HOWARD (obstructive sleep apnea) Peripheral neuropathy (~2015) Feet Prostate cancer (~2002) Radiation cystitis Skin cancer (~2016) Skin tags, multiple acquired Sleep apnea (~2004) Type 2 diabetes mellitus with peripheral neuropathy Upper extremity somatic dysfunction Vitamin D deficiency Wrist pain (~2019) Right wrist intermittent pain, at times severe Intervention: This participant was very receptive. Provided appropriate educational handouts. Discussed the following topics: Recent blood sugar results and trends Medication management: titration schedule Reviewed insulin resistance factors: progression of DM, weight changes, age, phys activity Review of impact of nutrition on BG Rule of 15 for treating lows Discussed process for personal CGM Created SMART goals for patient self-care and success. Goals: Trial CGM and email [facility] in one week - met Practice Rule of 15 prn- new Titrate insulin q 2-3 days 2-3units until FBG <130mg/dl- new Follow-up: FLORENCIO JACKSON follow-up in February. This RD will be on leave until Feb. Encouraged Omega to continue to work with provider to adjust insulin and improve BG. Plans to f/u with PCP in November. This RD will coordinate with PCP office for personal CGM rx. Yojana Nichols RDN, [facility] Certified Diabetes Care and Adult Basic Education Instructor P: [phone] Thank you for this referral
== END ==
PROVIDERS: Family Provider Family Medicine; PCP Family Medicine; Referring Provider Family Medicine; Visit Provider Family Medicine
DX: E11.9 Type 2 diabetes mellitus without complications (principal); Z79.4 Long term (current) use of insulin; Z71.3 Dietary counseling and surveillance
CPT/HCPCS: G0108

== ENCOUNTER → 2022-09-28 10:34 | Outpatient (CLI) | payer MEDICARE, SELFPAY | PROVIDERS: Family Provider Family Medicine; PCP Family Medicine; Referring Provider Specialist; Visit Provider Physician Assistant | DX: E11.9 Type 2 diabetes mellitus without complications (principal); Z79.4 Long term (current) use of insulin; Z71.3 Dietary counseling and surveillance; L59.8 Other specified disorders of the skin and subcutaneous tissue related to radiation; N30.41 Irradiation cystitis with hematuria | CPT/HCPCS: 99183; G0108; G0277 ==

== ENCOUNTER → 2022-10-01 10:58 | Outpatient (CLI) | payer MEDICARE, SELFPAY | PROVIDERS: Family Provider Family Medicine; PCP Family Medicine; Referring Provider Urology; Visit Provider Surgery | DX: L59.8 Other specified disorders of the skin and subcutaneous tissue related to radiation (principal); N30.41 Irradiation cystitis with hematuria | CPT/HCPCS: 99183; G0277 ==

== ENCOUNTER → 2022-10-02 13:12 | Outpatient (CLI) | payer MEDICARE, SELFPAY | PROVIDERS: Family Provider Family Medicine; PCP Family Medicine; Referring Provider Specialist; Visit Provider Surgery | DX: L59.8 Other specified disorders of the skin and subcutaneous tissue related to radiation (principal); N30.41 Irradiation cystitis with hematuria | CPT/HCPCS: 99183; G0277 ==

== ENCOUNTER → 2022-10-03 12:24 | Outpatient (CLI) | payer MEDICARE, SELFPAY | PROVIDERS: Family Provider Family Medicine; PCP Family Medicine; Referring Provider Specialist; Visit Provider Surgery | DX: L59.8 Other specified disorders of the skin and subcutaneous tissue related to radiation (principal); N30.41 Irradiation cystitis with hematuria | CPT/HCPCS: 99183; G0277 ==

== ENCOUNTER → 2022-10-05 09:47 | Outpatient (CLI) | payer MEDICARE, SELFPAY | PROVIDERS: Family Provider Family Medicine; PCP Family Medicine; Referring Provider Specialist; Visit Provider Surgery | DX: L59.8 Other specified disorders of the skin and subcutaneous tissue related to radiation (principal); N30.41 Irradiation cystitis with hematuria | CPT/HCPCS: 99183; G0277 ==

== ENCOUNTER → 2022-10-24 06:31 | Outpatient (CLI) | payer MEDICARE, SELFPAY ==
[2022-10-25 03:36] LABS: x Labcorp Estim. Avg Glu (eAG) 157 mg/dL (.); x Labcorp Hemoglobin A1c 7.1 % (4.8-5.6)
== END ==
PROVIDERS: Family Provider Family Medicine; PCP Family Medicine; Referring Provider Family Medicine; Visit Provider Family Medicine
DX: E11.21 Type 2 diabetes mellitus with diabetic nephropathy (principal); G62.9 Polyneuropathy, unspecified; E78.00 Pure hypercholesterolemia, unspecified; I10 Essential (primary) hypertension
CPT/HCPCS: 36415; 83036

== ENCOUNTER → 2023-01-04 12:21 | Outpatient (CLI) | payer MEDICARE, SELFPAY ==
--- NOTE | 2023-01-04 | DI.CT.S_ITS ---
PROCEDURE: CT SINUS SCREEN WO CON INDICATIONS: SINUS DRAINAGE TECHNIQUE: Noncontrast 3.0 mm axial images acquired from the frontal sinuses to the mid-sella, with coronal and sagittal reformats. For radiation dose reduction, the following was used: automated exposure control, adjustment of mA and/or kV according to patient size. COMPARISON: None. FINDINGS: Image quality: Excellent. Maxillary Sinuses: No bony remodeling or destruction. Sinuses are clear. Ethmoid Air Cells: No bony remodeling or destruction. Sinuses are clear. Sphenoid Sinuses: No bony remodeling or destruction. Sinuses are clear. Frontal Sinuses: No bony remodeling or destruction. Sinuses are clear. Ostiomeatal Complexes: Ostiomeatal complexes are patent. No Dee cells. Miscellaneous: Visualized intra-orbital contents are normal. No shae bullosa or paradoxical turbinate curvature. No nasal septal deviation. IMPRESSION: Unremarkable CT of the paranasal sinuses Approved by: Robert Platt M.D. on 01/04/2023 at 17:05
== END ==
PROVIDERS: Family Provider Family Medicine; PCP Family Medicine; Referring Provider Otolaryngology; Visit Provider Otolaryngology
DX: J32.4 Chronic pansinusitis (principal)
CPT/HCPCS: 70486

== ENCOUNTER 2023-02-14 09:50 | Emergency (ER) | payer MEDICARE, SELFPAY ==
[2023-02-14] VITALS (17 sets, daily range): BP systolic 140–174; BP diastolic 75–90; PULSE 49–59; RESP 16; TEMP 35.8–36.6; O2SAT 92–98; BMI 38.7
[2023-02-14 10:18] LABS: Add Manual Diff / Slide Review NO; Basophils Absolute Auto 100 /uL (0-100); Basophils Percent Auto 1.3 % (0-2); Eosinophils Absolute Auto 300 /uL (0-450); Eosinophils Percent Auto 3.6 % (2-4); Hematocrit 47.4 % (41-53); Hemoglobin 16.1 g/dL (13.5-17.5); Lymphocytes Absolute Auto 1400 /uL (1100-4500); Lymphocytes Percent Auto 14.8 % (25-40); Mean Corpuscular Hemoglobin 31.7 PG (26-34); Mean Corpuscular Volume 93.3 fL (80-100); Monocytes Absolute Auto 600 /uL (0-900); Monocytes Percent Auto 6.4 % (3-14); Neutrophils Absolute Auto 7000 /uL (1500-7000); Neutrophils Percent Auto 73.9 % (50-75); Platelet Count 216 X10^3/uL (150-400); Red Blood Cell Count 5.08 X10^6/uL (4.5-5.9); Red Cell Distribution Width 13.6 % (11.6-14.8); White Blood Cell Count 9.4 X10^3/uL (4.5-11.0)
[2023-02-14 10:24] LABS: Alanine Aminotransferase 39 IU/L (<50); Albumin 4.4 g/dL (3.5-5.0); Albumin Globulin Ratio 1.5 (1.0-2.8); Alkaline Phosphatase 83 U/L (38-126); Aspartate Aminotransferase 32 IU/L (17-59); BUN Creatinine Ratio 16.4 (6-22); Bilirubin Total 0.7 mg/dL (0.2-1.3); Blood Urea Nitrogen 19 mg/dL (9-20); Calcium 9.4 mg/dL (8.4-10.2); Carbon Dioxide 26 mmol/L (22-32); Chloride 105 mmol/L (98-107); Estimated Glomerular Filt Rate > 60 mL/min (>60); Glucose 201 mg/dL (80-110); HEMOLYSIS 24 (0-50); Lipase 108 U/L (23-300); Potassium 4.3 mmol/L (3.4-5.1); Sodium 137 mmol/L (137-145); Total Protein 7.4 g/dL (6.3-8.2)
--- NOTE | 2023-02-14 10:50 | ED.ABDPAIN ---
HPI - Abdominal Pain General Chief Complaint: Abdominal Pain Stated Complaint: poss kidney stone/diverticulitis Time Seen by Provider: 02/14/23 10:39 Mode of arrival: Family Vehicle History of Present Illness HPI narrative: Patient brought here by from home for complaints of left lower quadrant pain with nausea that started last night. Patient has history of kidney stones and diverticulitis, he is unsure which 1 it feels like. It is painful with palpation. Has had no appetite. He is not been able take his medications this morning. No urinary complaints. No hematuria. No diarrhea. Related Data Previous Rx's Medication Instructions Recorded losartan 100 mg tablet 100 mg PO DAILY #90 tabs 02/26/22 insulin detemir U-100 100 unit/mL 54 unit (0.54 mL) SUBCUT BEDTIME 07/17/22 (3 mL) subcutaneous pen (Levemir #45 mL FlexTouch U-100 Insulin) simvastatin 20 mg tablet See Rx Instructions .Route 08/03/22 .COMPLEX #90 tabs lorazepam 1 mg tablet (Ativan) 0.5 mg (1/2 x 1 mg) PO TID PRN 10/29/22 anxiety #45 tabs nystatin 100,000 unit/mL oral 4 ml PO QID #200 mL 10/29/22 suspension vortioxetine 10 mg tablet 10 mg PO DAILY #90 tabs 10/29/22 insulin aspart U-100 100 unit/mL 15 unit (0.15 mL) SUBCUT TID #15 mL 11/30/22 (3 mL) subcutaneous pen (Novolog FlexPen U-100 Insulin aspart) Accu check test strips #100 ea 12/05/22 pen needle, diabetic 31 gauge x #100 ea 12/19/22 5/16 (BD Ultra-Fine Short Pen Needle) semaglutide 0.25 mg or 0.5 mg (2 0.25 mg (0.368 mL) SUBCUT QWEEK #3 12/20/22 mg/3 mL) subcutaneous pen injector mL (Ozempic) bupropion HCl 300 mg 24 hr tablet, 300 mg PO DAILY #90 tabs 01/10/23 extended release hydrocodone 5 mg-acetaminophen 325 1 tab PO Q6H PRN pain #16 tabs 02/14/23 mg tablet ondansetron 4 mg disintegrating 4 mg PO Q8H PRN nausea and 02/14/23 tablet vomiting #10 tabs tamsulosin 0.4 mg capsule 0.4 mg PO DAILY #7 caps 02/14/23 Allergies Allergy/AdvReac Type Severity Reaction Status Date / Time tree and shrub pollen Allergy Mild Verified 02/14/23 09:59 Review of Systems Review of Systems Narrative: GENERAL: negative chills, fatigue, malaise, fever, sweats. HEENT: negative sinus pain, ear pain, sore throat RESPIRATORY: negative dyspnea, cough CARDIOVASCULAR: negative chest pain, palpitations GASTROINTESTINAL: Positive nausea, negative vomiting, positive abdominal pain : negative dysuria, frequency, hematuria MUSCULOSKELETAL: negative muscle or bony pain SKIN: negative rash, skin lesions NEUROLOGIC: negative weakness, numbness ROS Unobtainable: All systems reviewed & are unremarkable except as noted in HPI and below Patient History Medical History Tremor Oral thrush Post-nasal drainage Phlegm in throat Excessive cerumen in both ear canals Insomnia Gross hematuria Elevated ALT measurement CKD stage 3 due to type 2 diabetes mellitus Upper extremity somatic dysfunction Vitamin D deficiency Skin tags, multiple acquired Chronic throat clearing Chronic nasal congestion Diabetic nephropathy Radiation cystitis HOWARD (obstructive sleep apnea) Compulsive overeating Anxiety and depression Sleep apnea (~2004) Allergies (~1977) Peripheral neuropathy (~2015) Benign familial tremor (~2004) Wrist pain (~2019) Fractures Chicken pox (~1968) Hearing loss (~2014) History of urinary incontinence (~2004) Hemorrhoid (~1999) Colon polyps (~2015) Skin cancer (~2016) Type 2 diabetes mellitus with peripheral neuropathy Erectile dysfunction History of nephrolithiasis (~2010) Hypercholesterolemia HTN (hypertension) Diverticular disease (~2016) Constipation (~2019) Prostate cancer (~2002) Surgical History Anesthesia History of surgery on right wrist (~2000) H/O vasectomy H/O transurethral resection of prostate (~11/2004) H/O prostate biopsy H/O prostatectomy H/O cystoscopy Family History Father Colon cancer Loud snoring Insomnia Obesity Mother Cancer Family/Other Alcohol abuse Substance abuse Social History marital status: Smoking Status: Never smoker alcohol intake: current Smoking Status: Never smoker alcohol intake frequency: holidays/special occasions only Substance Use Type: does not use Exam Narrative Exam Narrative: GENERAL: in no distress, not toxic not dyspneic HEAD: Normocephalic. EYES: Pupils equal round ENT: Mucous membranes moist. NECK: Trachea midline. CARDIOVASCULAR: Regular rate and rhythm RESPIRATORY: Clear to auscultation. Breath sounds equal bilaterally. No wheezes, rales, or rhonchi. GASTROINTESTINAL: Abdomen soft, reproducible left lower quadrant tenderness. No peritoneal signs. Bowel sounds are present. No pain out of proportion to exam EXTREMITIES: No gross deformities. BACK: No flank tenderness. NEURO: AOx4. SKIN: Warm and dry PSYCH: Not anxious, is cooperative Initial Vital Signs Initial Vital Signs: Vital Signs Temperature 96.5 F L 02/14/23 09:56 Pulse Rate 51 L 02/14/23 09:56 Respiratory Rate 16 02/14/23 09:56 Blood Pressure 171/77 H 02/14/23 09:56 Pulse Oximetry 96 02/14/23 09:56 Oxygen Delivery Method Room Air 02/14/23 09:56 Course Orders Ordered: Discontinued Medications Hydromorphone HCl (Hydromorphone 1 Mg Inj) 1 mg IV NOW ONE Stop: 02/14/23 10:50 Last Admin: 02/14/23 11:07 Dose: 1 mg Documented By: MOISES Sodium Chloride (Normal Saline 0.9%) 1,000 mls @ 1,000 mls/hr IV BOLUS ONE Stop: 02/14/23 11:48 Last Infusion: 02/14/23 12:06 Dose: Infused Documented By: Admin: 02/14/23 11:07 Dose: 1,000 mls/hr Documented By: MOISES Ketorolac Tromethamine (Ketorolac 30 Mg/Ml Vial) 15 mg IV NOW ONE Stop: 02/14/23 12:32 Last Admin: 02/14/23 12:48 Dose: 15 mg Documented By: MOISES Ondansetron HCl (Ondansetron 4 Mg Odt) 4 mg PO NOW PRN PRN Reason: Nausea And Vomiting Ondansetron HCl (Ondansetron 4 Mg/2 Ml Inj) 4 mg IV NOW PRN PRN Reason: Nausea And Vomiting Last Admin: 02/14/23 11:07 Dose: 4 mg Documented By: MOISES Tamsulosin HCl (Tamsulosin 0.4 Mg Capsule) 0.4 mg PO NOW ONE Stop: 02/14/23 12:32 Last Admin: 02/14/23 12:48 Dose: 0.4 mg Documented By: MOISES Vital Signs Vital signs: Vital Signs - 8 hr 02/14/23 09:56 02/14/23 09:56 02/14/23 09:57 Temperature 96.5 F L Pulse Rate 51 L 51 L Respiratory Rate 16 Blood Pressure 171/77 H 171/77 H Pulse Oximetry 96 96 Oxygen Delivery Method Room Air 02/14/23 10:00 02/14/23 10:01 02/14/23 10:01 Temperature Pulse Rate 58 L 55 L Respiratory Rate Blood Pressure 174/90 H Pulse Oximetry 96 96 Oxygen Delivery Method 02/14/23 10:15 02/14/23 10:15 02/14/23 10:30 Temperature Pulse Rate 49 L 51 L Respiratory Rate Blood Pressure 168/78 H Pulse Oximetry 95 95 Oxygen Delivery Method 02/14/23 10:31 02/14/23 10:31 02/14/23 10:45 Temperature Pulse Rate 49 L 51 L Respiratory Rate Blood Pressure 165/76 H Pulse Oximetry 94 95 Oxygen Delivery Method 02/14/23 10:45 02/14/23 11:11 02/14/23 11:11 Temperature Pulse Rate 50 L Respiratory Rate Blood Pressure 152/82 H 168/79 H Pulse Oximetry 98 Oxygen Delivery Method 02/14/23 11:15 02/14/23 11:15 02/14/23 11:30 Temperature Pulse Rate 58 L 59 L Respiratory Rate Blood Pressure 144/75 H Pulse Oximetry 93 95 Oxygen Delivery Method 02/14/23 11:30 02/14/23 11:45 02/14/23 11:45 Temperature Pulse Rate 53 L Respiratory Rate Blood Pressure 143/78 H 144/82 H Pulse Oximetry 95 Oxygen Delivery Method 02/14/23 12:00 02/14/23 12:00 02/14/23 12:15 Temperature Pulse Rate 56 L 56 L Respiratory Rate Blood Pressure 150/85 H Pulse Oximetry 92 93 Oxygen Delivery Method 02/14/23 12:15 Temperature Pulse Rate Respiratory Rate Blood Pressure 148/86 H Pulse Oximetry Oxygen Delivery Method MDM - Abdominal Pain Lab Data 02/14/23 10:04 02/14/23 10:04 Labs: Lab Results 02/14/23 02/14/23 Range/Units 10:04 11:12 WBC 9.4 (4.5-11.0) X10^3/uL RBC 5.08 (4.5-5.9) X10^6/uL Hgb 16.1 (13.5-17.5) g/dL Hct 47.4 (41-53) % MCV 93.3 (80-100) fL MCH 31.7 (26-34) PG MCHC 34.0 (30-36) % RDW 13.6 (11.6-14.8) % Plt Count 216 (150-400) X10^3/uL Neut % (Auto) 73.9 (50-75) % Lymph % (Auto) 14.8 L (25-40) % [place] % (Auto) 6.4 (3-14) % Eos % (Auto) 3.6 (2-4) % Baso % (Auto) 1.3 (0-2) % Neut # (Auto) 7000 (0516-5070) /uL Lymph # (Auto) 1400 (1179-6402) /uL [place] # (Auto) 600 (0-900) /uL Eos # (Auto) 300 (0-450) /uL Baso # (Auto) 100 (0-100) /uL Sodium 137 (137-145) mmol/L Potassium 4.3 (3.4-5.1) mmol/L Chloride 105 (98-107) mmol/L Carbon Dioxide 26 (22-32) mmol/L BUN 19 (9-20) mg/dL Creatinine 1.16 (0.66-1.25) mg/dL Estimated GFR > 60 (>60) mL/min BUN/Creatinine Ratio 16.4 (6-22) Glucose 201 H (80-110) mg/dL Calcium 9.4 (8.4-10.2) mg/dL Total Bilirubin 0.7 (0.2-1.3) mg/dL AST 32 (17-59) IU/L ALT 39 (<50) IU/L Alkaline Phosphatase 83 (38-126) U/L Total Protein 7.4 (6.3-8.2) g/dL Albumin 4.4 (3.5-5.0) g/dL Globulin 3.0 (1.7-4.1) g/dL Albumin/Globulin Ratio 1.5 (1.0-2.8) Lipase 108 (23-300) U/L Urine Color Yellow Urine Appearance Clear Urine pH 5.0 (4.5-8.0) Ur Specific [place] >=1.030 H (1.000-1.035) Urine Protein Negative (Negative) Urine Glucose (UA) Negative (Negative) g/dL Urine Ketones Trace H (NEGATIVE) Urine Occult Blood 2+ H (Negative) Urine Nitrate Negative (Negative) Urine Bilirubin Negative (NEGATIVE) Urine Urobilinogen 0.2 (0.2) E.U./dL Ur Leukocyte Esterase Negative (NEGATIVE) Urine RBC 5-10/hpf H (0-5/HPF) Urine WBC 0-1/hpf (0-5/HPF) Ur Squamous Epith Cells 0-1 /hpf (0-5/HPF) Urine Bacteria None seen (None) Ur Culture Indicated? Cult not indicated Point of care testing: Urine Dip Bedside Urine Glucose Negative Bedside Urine Bilirubin - Negative Bedside Urine Ketone +/- 5 Urine Specific [place] 1.030 Bedside Urine Occult Blood +++ Bedside Urine pH 6.0 Bedside Urine Protein +/- 15 Bedside Urine Urobilinogen - Negative Bedside Urine Nitrite - Negative Bedside Urine Leukocytes - Negative Esterase Imaging Data CT scan - abdomen/pelvis: Radiologist's Impression: [place] [address] CT Scan Report Signed Patient: Davey Mast V MR#: [id number] : 1950 Acct:[id number] Age/Sex: 72 / M Date of Service: 02/14/23 Loc: ED Accession Number: [id number] Procedure: CT abdomen pelvis w con Ordering Provider: Martin Shrestha MD PROCEDURE: CT ABDOMEN PELVIS W CON INDICATIONS: IV contrast only/left lower quadrant pain TECHNIQUE: After the administration of intravenous contrast, axial sections acquired from the lung bases to the pubic symphysis. Coronal and sagittal reformats were performed. For radiation dose reduction, the following was used: automated exposure control, adjustment of mA and/or kV according to patient size. COMPARISON: [facility], CT, CT ABDOMEN PELVIS W CON, 01/15/2020, 19:30. FINDINGS: Image quality: Excellent. Lung bases: Mild dependent atelectasis in posterior aspect of left lung base is seen. Heart: No significant findings. ABDOMEN: Liver: There is hepatomegaly. Moderate hepatic steatosis is seen. Gallbladder: A small calcified stone in dependent portion of gallbladder lumen is seen. No gallbladder wall thickening or pericholecystic fluid. Biliary ducts: Unremarkable. Pancreas: Unremarkable. Spleen: Unremarkable. Adrenal Glands: Unremarkable. Kidneys and Ureters: There is prominence of left renal collecting system and left ureter with moderate left perinephric fat stranding. 3 millimeter stone is noted in distal left ureter. No right-sided hydronephrosis or hydroureter. Stomach and Bowel: There is no bowel obstruction. No abnormal bowel wall thickening or mesenteric fat stranding. Appendix is visualized and is normal size and appearance. No abscess collection. Peritoneum: No abnormal intraperitoneal fluid. No free air. Ventral Wall: No hernias. Abdominal Nodes: No retroperitoneal or mesenteric adenopathy by size criteria. Vessels: Aorta and inferior vena cava are normal in size. PELVIS: Pelvic Organs: Unremarkable. Bladder: Unremarkable. Pelvic Nodes: No enlarged lymph nodes. Miscellaneous: No hernias are seen. Bones: No suspicious bony lesions. No acute vertebral body compression fracture. Degenerative disc disease in lower thoracic and lumbar spine is seen. IMPRESSION: 1. 3 millimeter left distal ureteral stone with moderate left-sided hydronephrosis and proximal to mid hydroureter. [id number] left perinephric fat stranding is also seen. No right-sided hydronephrosis or hydroureter. Normal appearing urinary bladder. 2. No bowel obstruction or abnormal bowel wall thickening. Normal appendix. No free fluid or free air. 3. Hepatomegaly and moderate hepatic steatosis, no discrete hepatic lesion. 4. Cholelithiasis unchanged from [address] evidence of acute cholecystitis. Dictated by: Quoc Spencer M.D. on 02/14/2023 at 11:25 Approved by: Quoc Spencer M.D. on 02/14/2023 at 11:30 MDM Narrative Medical decision making narrative: Patient brought here by from home for complaints of left lower quadrant pain with nausea that started last night. Patient has history of kidney stones and diverticulitis, he is unsure which 1 it feels like. It is painful with palpation. Has had no appetite. He is not been able take his medications this morning. No urinary complaints. No hematuria. No diarrhea. After history and exam CBC CMP urinalysis CT abdomen pelvis Dilaudid Zofran normal saline MDM CC: Abdominal pain Complicating co-morbidities: History kidney stones and diverticulitis Data collected from: Patient and Medical records reviewed: No recent visit for this complaint Differential considered: Includes but not limited to diverticulitis diverticulosis perforation of bowel, bowel obstruction kidney stone pyelonephritis Exam documented above, pertinent findings include: Tender left lower quad Lab Test results independently reviewed as above. Pertinent findings: WBC 9.4 hemoglobin 16.1 sodium 137 potassium 4.3 BUN 19 creatinine 1.16 glucose 201 AST 32 ALT 39 Urinalysis negative nitrate negative leukocyte esterase 2+ blood Imaging studies independently reviewed: CT abdomen pelvis 3 mm distal ureteral stone on the left Consultations: Patient already seen Dr. Vidal in the past Treatments: Dilaudid Zofran normal saline Re-evaluations: 12:38 p.m.. Spoke with patient and results. Patient states his pain is so much better now. He has seen urologist in the past. Return precautions reviewed with patient. Nontoxic at discharge. He desires discharge home Discussion: Appropriate for discharge home. Exam and laboratory studies imaging are reassuring. Antibiotics indicated at this time. No fever. WBC normal. Pain is controlled. Return precautions reviewed with patient and . They desire discharge home. Diagnosis: Left ureteral stone Discharge Plan Departure Patient Disposition: Home Clinical Impression: Left ureteral calculus Instructions: DI for Kidney Stones Activity Restrictions/Additional Instructions: No driving operating machinery today. Or when taking prescribed pain medication. Keep well hydrated. Return if worse if any questions or concerns. Prescription medication has been provided for pain control. Please do call Dr. Vidal office today for office re-evaluation with the week. Drink plenty of fluids. Prescriptions: New hydrocodone-acetaminophen 5-325 mg tablet 1 tab PO Q6H PRN (Reason: pain) Qty: 16 0RF tamsulosin 0.4 mg capsule 0.4 mg PO DAILY Qty: 7 0RF ondansetron 4 mg tablet,disintegrating 4 mg PO Q8H PRN (Reason: nausea and vomiting) Qty: 10 0RF No Action losartan 100 mg tablet 100 mg PO DAILY Qty: 90 3RF Levemir FlexTouch U100 Insulin 100 unit/mL (3 mL) insulin pen 54 unit SUBCUT BEDTIME Qty: 45 3RF simvastatin 20 mg tablet See Rx Instructions .ROUTE .COMPLEX Qty: 90 3RF Dose Instruction: TAKE 1 TABLET BY MOUTH DAILY Rx Instructions: TAKE 1 TABLET BY MOUTH DAILY insulin aspart U-100 [Novolog FlexPen U-100 Insulin] 100 unit/mL (3 mL) insulin pen 15 unit SUBCUT TID Qty: 15 3RF (DME) Accu check test strips See Rx Instructions .Route .MEDSUPPLY Qty: 100 11RF Rx Instructions: Use to test blood sugars twice daily (DME) pen needle, diabetic [BD Ultra-Fine Short Pen Needle] 31 gauge x 5/16 needle See Rx Instructions .ROUTE .COMPLEX Qty: 100 11RF Dose Instruction: USE TO INJECT INSULIN Rx Instructions: USE TO INJECT INSULIN bupropion HCl 300 mg tablet extended release 24 hr 300 mg PO DAILY MDD 300mg Qty: 90 0RF Rx Instructions: Take one tablet by mouth daily nystatin 100,000 unit/mL suspension 4 ml PO QID Qty: 200 0RF Rx Instructions: swish and swallow vortioxetine 10 mg tablet 10 mg PO DAILY Qty: 90 3RF lorazepam [Ativan] 1 mg tablet 0.5 mg PO TID PRN (Reason: anxiety) Qty: 45 5RF Ozempic 0.25 mg or 0.5 mg (2 mg/3 mL) pen injector 0.25 mg SUBCUT QWEEK Qty: 3 2RF Rx Instructions: Start with 0.25 mg sc q weekly then increase to 0.5 mg sc q weekly Referrals: Kristin Vidal MD [Physician] - Farshad Rivera DO [Primary Care Provider] - Stand Alone Forms: Patient Portal/API
[2023-02-14] MEDS: ONDANSETRON 4 MG/2 ML INJ IV (11:07)
[2023-02-14] MEDS: HYDROMORPHONE 1 MG INJ IV (11:07)
[2023-02-14] MEDS: SODIUM CHLORIDE 0.9% 1,000 ML 1000 ML IV (11:07)
[2023-02-14 11:26] LABS: Appearance Urine UA CLEAR; Bilirubin Urine UA NEGATIVE (NEGATIVE); Color Urine UA YELLOW; Glucose Urine UA NEGATIVE (Negative); Ketones Urine UA TRACE (NEGATIVE); Leukocyte Esterase Urine UA NEGATIVE (NEGATIVE); Nitrite Urine UA NEGATIVE (Negative); Occult Blood Urine UA 2+ (Negative); Protein Urine UA NEGATIVE (Negative); Specific Gravity Urine UA >=1.030 (1.000-1.035); Urobilinogen Urine UA 0.2 E.U./dL (0.2)
[2023-02-14 11:41] LABS: Bacteria Urine None Seen; Culture Indicated Urine Cult Not Indicated; RBC Urine 5-10/HPF (0-5/HPF); Squamous Epithelial Cell Urine 0-1 /HPF (0-5/HPF); WBC Urine 0-1/HPF (0-5/HPF)
[2023-02-14] MEDS: KETOROLAC 30 MG/ML VIAL 15 MG IV (12:48)
[2023-02-14] MEDS: TAMSULOSIN 0.4 MG CAPSULE PO (12:48)
== END 2023-02-14 13:00 | disposition home or self-care (01) ==
PROVIDERS: Emergency Provider Emergency Medicine; Family Provider Family Medicine; PCP Family Medicine
DX: N20.1 Calculus of ureter (principal); Z87.442 Personal history of urinary calculi; R11.0 Nausea
CPT/HCPCS: 36415; 74177; 80053; 81001; 81003; 83690; 85025; 96361; 96374; 96375; 99284; J1170; J1885; J2405; Q9967

== ENCOUNTER → 2023-02-18 13:12 | Outpatient (CLI) | payer MEDICARE, SELFPAY ==
[2023-02-18 14:42] LABS: Hemoglobin A1C% w Est Avg Glu 8.1 % (4.0-6.0)
[2023-02-18 15:27] LABS: Alanine Aminotransferase 34 IU/L (<50); Albumin 4.1 g/dL (3.5-5.0); Albumin Globulin Ratio 1.3 (1.0-2.8); Alkaline Phosphatase 65 U/L (38-126); Aspartate Aminotransferase 31 IU/L (17-59); BUN Creatinine Ratio 14.8 (6-22); Bilirubin Total 0.9 mg/dL (0.2-1.3); Blood Urea Nitrogen 17 mg/dL (9-20); Calcium 9.4 mg/dL (8.4-10.2); Carbon Dioxide 27 mmol/L (22-32); Chloride 103 mmol/L (98-107); Cholesterol 203 mg/dL (140-199); Estimated Glomerular Filt Rate > 60 mL/min (>60); Globulin 3.1 g/dL (1.7-4.1); Glucose 120 mg/dL (80-110); HDL Cholesterol 42 mg/dL (40-60); HEMOLYSIS < 15 (0-50); LDL Cholesterol Calculated 128 mg/dL (<100); Potassium 3.9 mmol/L (3.4-5.1); Sodium 137 mmol/L (137-145); Total Protein 7.2 g/dL (6.3-8.2); Triglycerides 163 mg/dL (35-150)
[2023-02-18 18:16] LABS: Creatinine Urine Random 122.3 mg/dL
[2023-02-18 18:23] LABS: Microalbumin Urine Random < 0.6 mg/dL (0-1.6)
== END ==
PROVIDERS: Family Provider Family Medicine; PCP Family Medicine; Referring Provider Family Medicine; Visit Provider Family Medicine
DX: E11.42 Type 2 diabetes mellitus with diabetic polyneuropathy (principal); I10 Essential (primary) hypertension; E78.00 Pure hypercholesterolemia, unspecified
CPT/HCPCS: 36415; 80053; 80061; 82043; 82570; 83036

== ENCOUNTER → 2023-02-21 11:55 | Outpatient (CLI) | payer MEDICARE, SELFPAY ==
[2023-03-03 12:37] LABS: Ca oxalate monohydr 10 % (.); Size 4x4 mm (.); Uric Acid 90 % (.)
== END ==
PROVIDERS: Family Provider Family Medicine; PCP Family Medicine; Visit Provider Specialist
DX: N20.1 Calculus of ureter (principal)
CPT/HCPCS: 82365

== ENCOUNTER → 2023-03-20 09:56 | Outpatient (CLI) | payer MEDICARE, SELFPAY ==
--- NOTE | 2023-03-21 16:07 | DIAB.MNTFU ---
Follow-up Diabetes Medical Nutrition Therapy Assessment Name: Davey Mast V (Omega) Date: 03/20/23 Time: 10-8382s Dx: Type II Diabetes Omega presents for Dm follow-up. Continues using FSL. Time in range is below goal of 75% at this time. Reports this is likely due to diet and cravings. Plans to start Semaglutide injections. Has not picked up rx. Has questions about insulin stacking. Has questions regarding upgrading to FSL3. Reports h/o stressful job prior to half-way, which led to stress eating fast food. Reports feeling as though he has a sugar addiction. Endorses high intake recently, especially with out of town. Dx with T2Dm 11 years ago. No FH of Dm known. States he feels his diagnosis is mostly lifestyle related. Reports low vegetable intake. States he likes stir colby and iceberg lettuce salads. Rarely eats the salads due to believing they are not nutritious. Diet Recall: B: nothing or cereal or eggs an toast 1130a: patrickimmanuel du 6 +/- chips OR fast food 2 cheeseburgers and large colby OR home sandwich with turkey or chx 6-7p: protein with 1-1.5c rice OR eating out 10p-12a: ice cream or cereal or mirtha crackers Anthropometrics: Wt: 240# reported Physical Activity: Not discussed today Self-Monitoring Blood Glucose: Frequent hyperglycemia, often around noon and midnight. Has been taking extra meal time insulin to correct. Denies lows. Worried about stacking, though states he often does not take multiple injections within 3 hours. Has been confirming results with meter finger sticks, has been using the same meter for 8 years. Had a FSL sensor failure after two days. Needs replacement. 14d TIR: 2% very high >250 37% High 181-250 61% target range 70-180 0% low Diabetes Medications: Levemir 58u Aspart 15-20u TID Semaglutide 0.25-0.5mg weekly (not started) Pertinent Labs: HgA1c 7.6% 07/2022 7.1% 10/2022 8.1% 02/2023 Past Medical History: (Last Reviewed 02/14/23 @ 10:51 by Martin Shrestha MD) Allergies (~1977) Anxiety and depression Benign familial tremor (~2004) Chicken pox (~1968) Chronic nasal congestion 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 Colon polyps (~2015) Compulsive overeating Constipation (~2019) Severe Diabetic nephropathy Diverticular disease (~2016) Elevated ALT measurement Erectile dysfunction Excessive cerumen in both ear canals Fractures Wrist 2018/ankle 2018 Gross hematuria Hearing loss (~2014) Hemorrhoid (~1999) History of nephrolithiasis (~2010) History of urinary incontinence (~2004) After prostate surgery HTN (hypertension) Hypercholesterolemia Insomnia Oral thrush HOWARD (obstructive sleep apnea) Peripheral neuropathy (~2015) Feet Phlegm in throat Post-nasal drainage Prostate cancer (~2002) Radiation cystitis Skin cancer (~2016) Skin tags, multiple acquired Sleep apnea (~2004) Tremor Type 2 diabetes mellitus with peripheral neuropathy Upper extremity somatic dysfunction Vitamin D deficiency Wrist pain (~2019) Right wrist intermittent pain, at times severe Nutrition Rx: Carbohydrates: Meal:45g Snack:15-30g Nutrition Diagnosis: Excessive CHO intake r/t cravings and predicted extended time without eating aeb diet recall and pt report Nutrition and food related knowledge deficit r/t limited nutrition counseling aeb pt report Intervention: This participant was very receptive. Provided appropriate educational handouts. Discussed the following topics: Blood sugar review and trends. Impact of food intake and meds on results. Meal timing, pairing macronutrients and spreading out carbohydrates for better blood glucose management Vegetable intake and strategies to increase for health and satiety Cravings strategies Semaglutide action, SE, and injecting Injection sites and best practices Insulin stacking and s/s hypoglycemia RD will contact rep for FSL upgrading inquiry DM pathophysiology Created SMART goals for patient self-care and success. Goals: Start Semaglutide as rx'd Add back salads you enjoy Add PB to HS snack crackers Try higher protein cereal Implement smaller portion ordering at fast food Follow-up: FLORENCIO JACKSON follow-up in 3-4 weeks Yojana Nichols RDN, MANUEL Certified Diabetes Care and Legislative Assistant P: [phone] Thank you for this referral
== END ==
PROVIDERS: Family Provider Family Medicine; PCP Family Medicine; Referring Provider Family Medicine; Visit Provider Family Medicine
DX: E11.9 Type 2 diabetes mellitus without complications (principal); Z79.4 Long term (current) use of insulin; Z71.3 Dietary counseling and surveillance
CPT/HCPCS: 97803

== ENCOUNTER → 2023-04-17 09:56 | Outpatient (CLI) | payer MEDICARE, SELFPAY ==
--- NOTE | 2023-04-17 11:11 | DIAB.MNTFU ---
Follow-up Diabetes Medical Nutrition Therapy Assessment Name: Davey Mast V (Omega) Date: 04/17/23 Time: 1006-11a Dx: Type II Diabetes Omega presents for follow-up regarding T2DM. States he has noticed a reduced appetite with starting Ozempic. Denies any SE. Currently on 0.25 dose x 2 weeks. Plans to increase to 0.5 Saturday. Has questions regarding honey v syrup v sugar v jam in terms of CHO. Avoiding fast food, though ate once and chose smaller portion (one burger and colby) Added salads with cottage cheese to his diet. Also added PB and toast as a snack. Noticed higher BG with waffles and syrup breakfast, lacked protein, predicted excessive CHO with syrup portion. wants to try celery with pb as a snack. Endorses poor sleep with going to bed around 2-3am and waking at 7-8am. Wears Cpap. Would like to try and sleep earlier but sometimes wakes earlier as a result. Endorse some nutrition barriers with sweets around the holidays. Anthropometrics: Wt: 240# reported last visit Physical Activity: More walks with family in town recently, but no consistent plan. Phone tracks steps, but does not always carry phone on him. Interested in tracking steps. Self-Monitoring Blood Glucose: FSL report indicates persistent hyperglycemia, but not large swings with meals. Normally would recommend increased Levemir, but may wait until after inc Ozempic. States he wakes with elevated FBG in 180-200 level. 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 Colon polyps (~2015) Compulsive overeating Constipation (~2019) Severe Diabetic nephropathy Diverticular disease (~2016) Elevated ALT measurement Erectile dysfunction Excessive cerumen in both ear canals Fractures Wrist 2018/ankle 2018 Gross hematuria Hearing loss (~2014) Hemorrhoid (~1999) History of nephrolithiasis (~2010) History of urinary incontinence (~2004) After prostate surgery HTN (hypertension) Hypercholesterolemia Insomnia Oral thrush HOWARD (obstructive sleep apnea) Peripheral neuropathy (~2015) Feet Phlegm in throat Post-nasal drainage Prostate cancer (~2002) Radiation cystitis Skin cancer (~2016) Skin tags, multiple acquired Sleep apnea (~2004) Tremor Type 2 diabetes mellitus with peripheral neuropathy Upper extremity somatic dysfunction Vitamin D deficiency Wrist pain (~2019) Right wrist intermittent pain, at times severe Nutrition Rx: Carbohydrates: Meal:45g Snack:15-30g Nutrition Diagnosis: Excessive CHO intake r/t cravings and predicted extended time without eating aeb diet recall and pt report- improved/in progress Nutrition and food related knowledge deficit r/t limited nutrition counseling aeb pt report - improved Intervention: This participant was very receptive. Provided appropriate educational handouts. Discussed the following topics: Blood sugar review and trends. Impact of food intake and meds on results. Macronutrient pairing and portions CHO content for different types of sugar/syrups Meal planning Physical activity plan and progress Created SMART goals for patient self-care and success. Goals: Start Semaglutide as rx'd- met Add back salads you enjoy- met Add PB to HS snack crackers- met Try higher protein cereal- not met Implement smaller portion ordering at fast food- met Buy celery for snacks- new Increase Ozempic Saturday - new Work on sleep hygiene- new Track steps with phone- new Follow-up: FLORENCIO JACKSON follow-up in 2-3 weeks. If hyperglycemia persists will encourage adjusted HS insulin dose. Yojana Nichols RDN, CDCES Certified Diabetes Care and Recreation Adviser P: [phone] Thank you for this referral
== END ==
LOC: DIET 09:56
PROVIDERS: Family Provider Family Medicine; PCP Family Medicine; Referring Provider Family Medicine; Visit Provider Family Medicine
DX: E11.9 Type 2 diabetes mellitus without complications (principal); Z71.3 Dietary counseling and surveillance; Z79.4 Long term (current) use of insulin; Z79.85 Long-term (current) use of injectable non-insulin antidiabetic drugs
CPT/HCPCS: 97803

== ENCOUNTER → 2023-05-21 15:32 | Outpatient (CLI) | payer MEDICARE, SELFPAY ==
--- NOTE | 2023-06-04 10:23 | DIAB.MNTFU ---
Follow-up Diabetes Medical Nutrition Therapy Assessment Name: Davey Mast V (Omega) Date: 05/21/23 Time: 340-5p Dx: Type II Diabetes Omega presents for follow-up Dm visit with , Adilia. Reports taking ac insulin more consistently and has increased ozempic to rx dose of 0.5mg/wk. Endorses reduced appetite on ozempic. States a concern of his 's is that he does not like a lot of veggies. Has been incorporating the salad he enjoys. Has not purchased celery for pb snack. Has questions about sf cocoa options. Also reports over consumption of ice cream due to eating directly out of container. Reports h/o kidney stones in 02/2023 which he attributes to reduced water intake. Now 60-64oz water reported. Diet recall: 930a: cornflakes or toast with egg with ovaltine hot nichole 1p: nothing or sandwich or PB toast or leftovers 530-730p: stuffed pork chop with salad or green lombardo coconut curried chx with neftali and 2c rice or 2c pasta with meatballs or pizza x 3-4 slices 8-1030p: pint ice cream Anthropometrics: no wt today. Reports a 3-4# reduction recently. Hx: 240# Physical Activity: Reduced walking with knee pain. States feels he is very sedentary. Self-Monitoring Blood Glucose: Much improved time in range. 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 Colon polyps (~2015) Compulsive overeating Constipation (~2019) Severe Diabetic nephropathy Diverticular disease (~2016) Elevated ALT measurement Erectile dysfunction Excessive cerumen in both ear canals Fractures Wrist 2018/ankle 2018 Gross hematuria Hearing loss (~2014) Hemorrhoid (~1999) History of nephrolithiasis (~2010) History of urinary incontinence (~2004) After prostate surgery HTN (hypertension) Hypercholesterolemia Insomnia Oral thrush HOWARD (obstructive sleep apnea) Peripheral neuropathy (~2015) Feet Phlegm in throat Post-nasal drainage Prostate cancer (~2002) Radiation cystitis Skin cancer (~2016) Skin tags, multiple acquired Sleep apnea (~2004) Tremor Type 2 diabetes mellitus with peripheral neuropathy Upper extremity somatic dysfunction Vitamin D deficiency Wrist pain (~2019) Right wrist intermittent pain, at times severe Nutrition Rx: Carbohydrates: Meal:45g Snack:15-30g Nutrition Diagnosis: Excessive CHO intake r/t eating directly out of ice cream pint and nichole drink choice aeb pt report Physical inactivity r/t knee pain and stage of change aeb pt report Excessive CHO intake r/t long periods of fasting aeb diet recall Intervention: This participant was very receptive. Provided appropriate educational handouts. Discussed the following topics: Blood sugar review and trends. Impact of food intake on results. Importance of eating frequency Portioning out carbs, ie ice cream SF cocoa options Vegetables he enjoys and can incorporate Meal planning and carb counting review Physical activity plan and progress Created SMART goals for patient self-care and success. Goals: Buy celery for snacks- not met Increase Ozempic Saturday - met Work on sleep hygiene- in progress Track steps with phone- not discussed Eat TID- new Incorporate 8 min walks 4x per week- new Buy celery for snack- new Try SF cocoa- new [facility] out ice cream portion- new Follow-up: FLORENCIO JACKSON follow-up in 2-3 weeks Yojana Nichols RDN, MANUEL Certified Diabetes Care and Wind Turbine Erector P: [phone] Thank you for this referral
== END ==
LOC: DIET 15:33
PROVIDERS: Family Provider Family Medicine; PCP Family Medicine; Referring Provider Family Medicine; Visit Provider Family Medicine
DX: E11.9 Type 2 diabetes mellitus without complications (principal); Z79.4 Long term (current) use of insulin; Z71.3 Dietary counseling and surveillance; Z79.85 Long-term (current) use of injectable non-insulin antidiabetic drugs
CPT/HCPCS: 97803

== ENCOUNTER → 2023-06-03 13:19 | Outpatient (CLI) | payer MEDICARE, SELFPAY ==
[2023-06-03 15:28] LABS: Hemoglobin A1C% w Est Avg Glu 7.3 % (4.0-6.0)
[2023-06-03 15:42] LABS: Appearance Urine UA CLEAR; Bilirubin Urine UA NEGATIVE (NEGATIVE); Color Urine UA YELLOW; Glucose Urine UA NEGATIVE (Negative); Ketones Urine UA NEGATIVE (NEGATIVE); Leukocyte Esterase Urine UA NEGATIVE (NEGATIVE); Nitrite Urine UA NEGATIVE (Negative); Occult Blood Urine UA NEGATIVE (Negative); Protein Urine UA NEGATIVE (Negative); Specific Gravity Urine UA 1.025 (1.000-1.035); Urobilinogen Urine UA 0.2 E.U./dL (0.2); pH Urine UA 5.5 (4.5-8.0)
[2023-06-03 15:48] LABS: Bacteria Urine Occasional (0-1); Culture Indicated Urine Cult Not Indicated; RBC Urine None Seen (0-5/HPF); Squamous Epithelial Cell Urine 0-1 /HPF (0-5/HPF); Urine Volume 10mL (spun); WBC Urine None Seen (0-5/HPF)
[2023-06-03 16:22] LABS: Microalbumin Urine Random < 0.6 mg/dL (0-1.6)
== END ==
PROVIDERS: Family Provider Family Medicine; PCP Family Medicine; Referring Provider Family Medicine; Visit Provider Family Medicine
DX: E11.22 Type 2 diabetes mellitus with diabetic chronic kidney disease (principal); N18.30 Chronic kidney disease, stage 3 unspecified; E11.21 Type 2 diabetes mellitus with diabetic nephropathy; E11.42 Type 2 diabetes mellitus with diabetic polyneuropathy; Z68.38 Body mass index [BMI] 38.0-38.9, adult; R31.9 Hematuria, unspecified
CPT/HCPCS: 36415; 81001; 82043; 82570; 83036

== ENCOUNTER → 2023-06-18 15:26 | Outpatient (CLI) | payer MEDICARE, SELFPAY ==
--- NOTE | 2023-06-18 17:05 | DIAB.FU ---
Follow-up Diabetes Education Assessment Name: Davey Mast V (Omega) Date: 06/18/23 Time: 330-430p Dx: Type II Diabetes Omega presents for DM follow-up. Improved HgA1c of 7.3%. Reports some recent high BG r/t higher carb choices, but overall has been increasing veggie intake with salad and carrots. Enjoyed some inspired veggies in a recipe his made from a new cook book. Endorses support from with changes in increments. Reports continued struggles with sleep hygiene. He is unsure why he stays up late, sometimes sleeps 2-6a and feels exhausted. States worries and depression may play a role. Reports screen time with movies and the news at night. Does not read in bed due to not wanting to disturb with light, though admits a book light may work. going out of town for one week. Plans to try some sleep hygiene strategies while she is gone, ie reading in bed. Also, this is historically a tough time for Omega with nutrition that leads to binge like behaviors of take out and processed foods, ie oreos, ice cream, fig newtons. Physical Activity: Walking 8 mins 4x per week. Considering 15 mins. Self-Monitoring Blood Glucose: Some elevations after meals. Also seems to wake with BG >130mg/dl, often 140-180mg/dl. Wondering if sleep habits and late snacking may impact this. May benefit from slight increase in Dm meds, ozempic v inc in Lantus x 2-4 units. ADS approved FSL3. Plans to receive this soon. 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 Colon polyps (~2015) Compulsive overeating Constipation (~2019) Severe Diabetic nephropathy Diverticular disease (~2016) Elevated ALT measurement Erectile dysfunction Excessive cerumen in both ear canals Fractures Wrist 2018/ankle 2018 Gross hematuria Hearing loss (~2014) Hemorrhoid (~1999) History of nephrolithiasis (~2010) History of urinary incontinence (~2004) After prostate surgery HTN (hypertension) Hypercholesterolemia Insomnia Oral thrush HOWARD (obstructive sleep apnea) Peripheral neuropathy (~2015) Feet Phlegm in throat Post-nasal drainage Prostate cancer (~2002) Radiation cystitis Skin cancer (~2016) Skin tags, multiple acquired Sleep apnea (~2004) Tremor Type 2 diabetes mellitus with peripheral neuropathy Upper extremity somatic dysfunction Vitamin D deficiency Wrist pain (~2019) Right wrist intermittent pain, at times severe Intervention: This participant was very receptive. Provided appropriate educational handouts. Discussed the following topics: Recent blood sugar results and trends Medication management: potential for changes if FBG cont elevated Review of general nutrition recommendations and current intake Meal planning while is gone, plate method, easy prep foods Physical activity plan and impact on blood sugars Sleep hygiene ideas Fiber and impact on BG Created SMART goals for patient self-care and success. Goals: Eat TID- met Incorporate 8 min walks 4x per week- met Buy celery for snack- met Try SF cocoa- in progress [facility] out ice cream portion- met Try an evening walk- new Read at 9pm - new Try brown rice- new Order veggies when ordering out- new Try new easy prep meal- new Follow-up: FLORENCIO JACKSON follow-up in 2-[address] sent secondary referral form for additional MNT hours to allow more support for nutrition therapy this year. Yojana Nichols RDN, [facility] Certified Diabetes Care and Bag Sorter P: [phone] Thank you for this referral
== END ==
PROVIDERS: Family Provider Family Medicine; PCP Family Medicine; Referring Provider Family Medicine; Visit Provider Family Medicine
DX: E11.9 Type 2 diabetes mellitus without complications (principal); Z79.4 Long term (current) use of insulin; Z79.85 Long-term (current) use of injectable non-insulin antidiabetic drugs; Z71.3 Dietary counseling and surveillance
CPT/HCPCS: G0108

== ENCOUNTER → 2023-10-19 09:59 | Outpatient (CLI) | payer MEDICARE, SELFPAY ==
[2023-10-19 10:32] LABS: Alanine Aminotransferase 36 IU/L (<50); Albumin Globulin Ratio 1.6 (1.0-2.8); Alkaline Phosphatase 84 U/L (38-126); Aspartate Aminotransferase 29 IU/L (17-59); BUN Creatinine Ratio 18.9 (6-22); Bilirubin Total 0.5 mg/dL (0.2-1.3); Blood Urea Nitrogen 23 mg/dL (9-20); Calcium 8.8 mg/dL (8.4-10.2); Carbon Dioxide 25 mmol/L (22-32); Chloride 109 mmol/L (98-107); Cholesterol 173 mg/dL (140-199); Estimated Glomerular Filt Rate > 60 mL/min (>60); Globulin 2.5 g/dL (1.7-4.1); Glucose 207 mg/dL (80-110); HDL Cholesterol 44 mg/dL (40-60); HEMOLYSIS < 15 (0-50); LDL Cholesterol Calculated 94 mg/dL (<100); Potassium 5.1 mmol/L (3.4-5.1); Sodium 138 mmol/L (137-145); Total Protein 6.5 g/dL (6.3-8.2); Triglycerides 175 mg/dL (35-150)
[2023-10-19 11:05] LABS: Prostate Specific Antigen Scrn < 0.064 ng/mL (0.1-4.0)
[2023-10-19 11:18] LABS: Hemoglobin A1C% w Est Avg Glu 7.4 % (4.0-6.0)
== END ==
PROVIDERS: Family Provider Family Medicine; PCP Family Medicine; Referring Provider Family Medicine; Visit Provider Family Medicine
DX: E11.42 Type 2 diabetes mellitus with diabetic polyneuropathy (principal); E78.00 Pure hypercholesterolemia, unspecified; Z12.5 Encounter for screening for malignant neoplasm of prostate; I10 Essential (primary) hypertension; E11.22 Type 2 diabetes mellitus with diabetic chronic kidney disease; N18.30 Chronic kidney disease, stage 3 unspecified
CPT/HCPCS: 36415; 80053; 80061; 83036; G0103

== ENCOUNTER → 2024-01-24 12:24 | Outpatient (CLI) | payer MEDICARE, SELFPAY ==
[2024-01-24 13:51] LABS: Estimated Glomerular Filt Rate > 60 mL/min (>60)
[2024-01-24 17:34] LABS: Hemoglobin A1C% w Est Avg Glu 7.2 % (4.0-6.0)
== END ==
PROVIDERS: Family Provider Family Medicine; PCP Family Medicine; Referring Provider Urology; Visit Provider Urology
DX: E11.42 Type 2 diabetes mellitus with diabetic polyneuropathy (principal); R31.0 Gross hematuria
CPT/HCPCS: 36415; 82565; 83036

== ENCOUNTER → 2024-01-30 11:41 | Outpatient (CLI) | payer MEDICARE, SELFPAY ==
--- NOTE | 2024-01-30 11:42 | DI.CT.S_ITS ---
PROCEDURE: CT IVP A/P W/WO INDICATIONS: 73 y/o M w/ gross hematuria, please eval upper tracts. TECHNIQUE: Optional 5 mm thick noncontrast images acquired from the diaphragm to the symphysis pubis. After the administration of intravenous contrast, 5 mm thick images acquired from the diaphragm to the symphysis pubis after a 10-minute delay. 2 mm thick coronal and sagittal reformats were then performed of the kidneys and ureters. For radiation dose reduction, the following was used: automated exposure control, adjustment of mA and/or kV according to patient size. COMPARISON: [facility], CT, CT ABDOMEN PELVIS W CON, 02/14/2023, 10:54. [facility], CT, CT ABDOMEN PELVIS WO/W CON, 03/04/2020, 7:59. FINDINGS: Image quality: Diagnostic. Kidneys and Ureters: Both kidneys are normal in size, without hydronephrosis or nephrolithiasis. No perinephric fat stranding. There is normal bilateral renal enhancement. Renal calyces appear normal in morphology when filled with contrast. Opacified portions of both ureters demonstrate normal caliber Bladder: Bladder wall thickness is normal. No calcified bladder stones. Right lower paraesophageal lymph node measuring 1.4 cm, (4/34), unchanged, and more remotely 0.5 cm in 2019. OTHER: Lower chest: Unremarkable. Liver: No solid mass. Hepatic steatosis. Gallbladder: Gallstones. Biliary ducts: No biliary dilation. Pancreas: No ductal dilation. Spleen: Size is within normal limits. Adrenal Glands: No adrenal nodules. Stomach and Bowel: Normal colonic caliber, without significant wall thickening. Normal appendix. No free fluid. Peritoneum: No abnormal intraperitoneal fluid. No free air. Ventral Wall: No hernia. Abdominal Nodes: No retroperitoneal or mesenteric adenopathy by size criteria. Vessels: Aorta and inferior vena cava are normal in size. PELVIS: Pelvic Organs: Prior TURP. Pelvic Nodes: No enlarged lymph nodes. Miscellaneous: No inguinal hernias are seen. Bones: No aggressive osseous abnormality. IMPRESSION: 1. No kidney stones. No hydronephrosis. 2. No upper urinary tract filling defect. No solid renal mass. 3. Right lower paraesophageal lymph node measuring 1.4 cm, unchanged. Indeterminate. 4. Hepatic steatosis. Gallstones. Dictated by: Tanner Saini M.D. on 01/30/2024 at 16:34 Approved by: Tanner Saini M.D. on 01/30/2024 at 16:45
== END ==
PROVIDERS: Family Provider Family Medicine; PCP Family Medicine; Referring Provider Urology; Visit Provider Urology
DX: K76.0 Fatty (change of) liver, not elsewhere classified (principal); R31.0 Gross hematuria; K80.20 Calculus of gallbladder without cholecystitis without obstruction
CPT/HCPCS: 74178; Q9967

== ENCOUNTER → 2024-03-17 13:46 | Outpatient (CLI) | payer MEDICARE, SELFPAY | PROVIDERS: Family Provider Family Medicine; PCP Family Medicine; Referring Provider Urology; Visit Provider Surgery | DX: L59.8 Other specified disorders of the skin and subcutaneous tissue related to radiation (principal); N30.41 Irradiation cystitis with hematuria | CPT/HCPCS: 99212; 99214 ==

== ENCOUNTER → 2024-06-15 13:10 | Outpatient (CLI) | payer MEDICARE, SELFPAY ==
[2024-06-15 14:47] LABS: Add Manual Diff / Slide Review NO; Basophils Absolute Auto 100 /uL (0-100); Basophils Percent Auto 1.4 % (0-2); Eosinophils Absolute Auto 500 /uL (0-450); Eosinophils Percent Auto 6.6 % (2-4); Hematocrit 46.8 % (41-53); Lymphocytes Absolute Auto 2300 /uL (1100-4500); Lymphocytes Percent Auto 33.1 % (25-40); Mean Corpuscular HGB Conc 34.3 % (30-36); Mean Corpuscular Hemoglobin 31.8 PG (26-34); Mean Corpuscular Volume 92.8 fL (80-100); Monocytes Absolute Auto 700 /uL (0-900); Monocytes Percent Auto 10.1 % (3-14); Neutrophils Absolute Auto 3400 /uL (1500-7000); Neutrophils Percent Auto 48.8 % (50-75); Platelet Count 208 X10^3/uL (150-400); Red Blood Cell Count 5.04 X10^6/uL (4.5-5.9); Red Cell Distribution Width 12.8 % (11.6-14.8)
[2024-06-15 14:57] LABS: Hemoglobin A1C% w Est Avg Glu 7.8 % (4.0-6.0)
[2024-06-15 15:13] LABS: Cholesterol 179 mg/dL (140-199); HDL Cholesterol 37 mg/dL (40-60); LDL Cholesterol Calculated 111 mg/dL (<100); Triglycerides 154 mg/dL (35-150)
[2024-06-15 18:47] LABS: Creatinine Urine Random 108.31 mg/dL
[2024-06-15 18:58] LABS: Microalbumin Urine Random < 0.6 mg/dL (0-1.6)
== END ==
PROVIDERS: Family Provider Family Medicine; PCP Family Medicine; Referring Provider Family Medicine; Visit Provider Family Medicine
DX: I10 Essential (primary) hypertension (principal); E11.42 Type 2 diabetes mellitus with diabetic polyneuropathy; E78.00 Pure hypercholesterolemia, unspecified; E11.21 Type 2 diabetes mellitus with diabetic nephropathy
CPT/HCPCS: 36415; 80061; 82043; 82570; 83036; 85025

== ENCOUNTER → 2024-11-05 13:13 | Outpatient (CLI) | payer MEDICARE, SELFPAY ==
[2024-11-05 14:44] LABS: Add Manual Diff / Slide Review NO; Hematocrit 45.8 % (41-53); Hemoglobin 15.7 g/dL (13.5-17.5); Lymphocytes Absolute Auto 2400 /uL (1100-4500); Mean Corpuscular HGB Conc 34.3 % (30-36); Mean Corpuscular Hemoglobin 31.5 PG (26-34); Mean Corpuscular Volume 91.9 fL (80-100); Platelet Count 208 X10^3/uL (150-400)
[2024-11-05 14:53] LABS: Hemoglobin A1C% w Est Avg Glu 8.2 % (4.0-6.0)
[2024-11-05 15:03] LABS: Alanine Aminotransferase 54 IU/L (<50); Albumin 4.5 g/dL (3.5-5.0); Albumin Globulin Ratio 1.9 (1.0-2.8); Alkaline Phosphatase 79 U/L (38-126); Blood Urea Nitrogen 18 mg/dL (9-20); Calcium 9.4 mg/dL (8.4-10.2); Carbon Dioxide 26 mmol/L (22-32); Chloride 104 mmol/L (98-107); Cholesterol 167 mg/dL (140-199); Estimated Glomerular Filt Rate > 60 mL/min (>60); Globulin 2.4 g/dL (1.7-4.1); Glucose 163 mg/dL (70-99); HDL Cholesterol 40 mg/dL (40-60); HEMOLYSIS < 15 (0-50); Potassium 4.7 mmol/L (3.4-5.1); Sodium 137 mmol/L (137-145); Total Protein 6.9 g/dL (6.3-8.2); Triglycerides 179 mg/dL (35-150)
== END ==
PROVIDERS: Family Provider Family Medicine; PCP Family Medicine; Referring Provider Family Medicine; Visit Provider Family Medicine
DX: E11.22 Type 2 diabetes mellitus with diabetic chronic kidney disease (principal); Z85.46 Personal history of malignant neoplasm of prostate; Z12.5 Encounter for screening for malignant neoplasm of prostate; N18.30 Chronic kidney disease, stage 3 unspecified; E11.21 Type 2 diabetes mellitus with diabetic nephropathy; E78.00 Pure hypercholesterolemia, unspecified; I10 Essential (primary) hypertension; E11.42 Type 2 diabetes mellitus with diabetic polyneuropathy
CPT/HCPCS: 36415; 80053; 80061; 83036; 85025; G0103